=== PATIENT | female | born 1985 | race Caucasian/White ===

== ENCOUNTER 2021-04-01 18:33 | Emergency (ER) | payer SELFPAY ==
--- OUTSIDE RECORDS SUMMARY | 2021-04-01 18:36 | XMS REPORT | Continuity of Care Document ---
:1985 Author Organization [facility] t Address [address] [place] [address] Dr. Guadarrama [address] [place] [id number] Care Team Providers Name Role Phone Unavailable Unavailable Unavailable Problems This patient has no known problems. Allergies, Adverse Reactions, Alerts This patient has no known allergies or adverse reactions. Medications This patient has no known medications. Procedures This patient has no known procedures. Encounters Start End Encounter Admission Attending Care Care Encounter Source Date/Time Date/Time Type Type Clinicians Facility Department ID 2019-09-26 2019-09-26 Emergency E [facility] [id number] MH 00:29:00 00:29:00 Genesis kwok [facility] Results This patient has no known results.
[2021-04-01 20:04] LABS: Urine Blood Negative (Negative); Urine Glucose Negative (Negative); Urine Protein Negative (Negative); Urine Specific Gravity 1.025 (1.005-1.030)
--- NOTE | 2021-04-01 20:29 | ER ---
Nurse's Notes [facility] Name: Anne Posada Age: 36 yrs Sex: Female : 1985 Arrival Date: 04/01/2021 Time: 18:39 Bed Treatment Private MD: Diagnosis: Low back pain Presentation: 04/01 19:34 Chief complaint: Patient states: has been having knots on her back for over a year , iw was supposed ot get xrays on it but never did, now it's gotten worse , states she had a fever today, took some ibuprofen. Coronavirus screen: At this time, the client does not indicate any symptoms associated with coronavirus-19. Ebola Screen: Patient negative for fever greater than or equal to 101.5 degrees Fahrenheit, and additional compatible Ebola Virus Disease symptoms Patient denies exposure to infectious person. Patient denies travel to an Ebola-affected area in the 21 days before illness onset. No symptoms or risks identified at this time. Initial Sepsis Screen: Does the patient meet any 2 criteria? No. Patient's initial sepsis screen is negative. Does the patient have a suspected source of infection? No. Patient's initial sepsis screen is negative. Risk Assessment: Do you want to hurt yourself or someone else? Patient reports no desire to harm self or others. Onset of symptoms. 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 - Social history:: Smoking status: Patient reports the use of cigarette tobacco products, smokes one-half pack cigarettes per day. - Family history:: not pertinent. - Hospitalizations: : No recent hospitalization is reported. Screenin:15 Abuse screen: Denies threats or abuse. Nutritional screening: No deficits noted. vg1 Tuberculosis screening: No symptoms or risk factors identified. Fall Risk None identified. Assessment: 20:13 General: Appears in no apparent distress. comfortable, Behavior is calm, cooperative. vg1 Pain: Complains of pain in lower back Pain currently is 4 out of 10 on a pain scale. Pain began about six months ago. Neuro: Level of Consciousness is awake, alert, obeys commands, Oriented to person, place, time, situation, Reports headache. Cardiovascular: Patient's skin is warm and dry. Respiratory: Airway is patent Respiratory effort is even, unlabored. GI: No signs and/or symptoms were reported involving the gastrointestinal system. : No signs and/or symptoms were reported regarding the genitourinary system. EENT: No signs and/or symptoms were reported regarding the EENT system. Derm: Skin is intact, is healthy with good turgor. Musculoskeletal: Circulation, motion, and sensation intact. 20:48 Reassessment: Patient appears in no apparent distress at this time. No changes from vg1 previously documented assessment. Patient and/or family updated on plan of care and expected duration. Pain level reassessed. Patient is alert, oriented x 3, equal unlabored respirations, skin warm/dry/pink. Vital Signs: 19:34 BP 118 / 88; Pulse 102; Resp 16; Temp 98.9; Pulse Ox 100% on R/A; Weight 56.7 kg; iw Height 5 ft. 4 in. (162.56 cm); 20:14 BP 108 / 77; Pulse 100; Resp 16; Pulse Ox 100% ; vg1 19:34 Body Mass Index 21.46 (56.70 kg, 162.56 cm) iw ED Course: 18:39 Patient arrived in ED. mr 19:37 Triage completed. iw 19:37 Arm band placed on. iw 19:56 Te Alanis MD is Attending Physician. ma2 20:00 Erika Fuchs, TRINI is Primary Nurse. vg1 20:04 Urine collected: clean catch specimen, clear. em 20:15 Patient has correct armband on for positive identification. Call light in reach. vg1 20:15 No provider procedures requiring assistance completed. Patient did not have IV access vg1 during this emergency room visit. Administered Medications: 20:34 Drug: Ketorolac 60 mg Route: IM; Site: right gluteus; vg1 20:49 Follow up: Response: No adverse reaction vg1 Outcome: 20:29 Discharge ordered by . ma2 20:49 Discharged to home ambulatory. vg1 20:49 Condition: stable 20:49 Discharge instructions given to patient, Instructed on discharge instructions, follow up and referral plans. medication usage, Demonstrated understanding of instructions, follow-up care, medications, Prescriptions given X 1. 20:49 Patient left the ED. vg1 Signatures: Sonja Plummer Edgar, RN RN Adamaris Knapp RN RN iw Alzahri, Mohammad, MD MD ma2 Erika Fuchs RN RN vg1
--- NOTE | 2021-04-01 20:29 | EDPHYS ---
Physician Documentation [facility] Name: Anne Posada Age: 36 yrs Sex: Female : 1985 Arrival Date: 04/01/2021 Time: 18:39 Bed Treatment Private MD: ED Physician Te Alanis HPI: 04/01 20:25 This 36 yrs old Female presents to ER via Ambulatory with complaints of low ma2 back pain. 20:25 Onset: The symptoms/episode began/occurred gradually, 2 year(s) ago. Associated signs ma2 and symptoms: Pertinent negatives: dizziness, malaise, neck stiffness, Photophobia sinus congestion, vomiting, weakness. Headache History: The patient has had previous headaches and this one is similar to previous episodes. The patient has experienced similar episodes in the past. no weakness or midline back pain, no fever no trauma or fall . 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 - Social history:: Smoking status: Patient reports the use of cigarette tobacco products, smokes one-half pack cigarettes per day. - Family history:: not pertinent. - Hospitalizations: : No recent hospitalization is reported. ROS: 20:25 Constitutional: Negative for fever, chills, and weight loss. ma2 20:25 All other systems are negative. Exam: 20:25 Constitutional: This is a well developed, well nourished patient who is awake, alert, ma2 and in no acute distress. Neck: Trachea midline, no thyromegaly or masses palpated, and no cervical lymphadenopathy. Supple, full range of motion without nuchal rigidity, or vertebral point tenderness. No Meningismus. Chest/axilla: Normal chest wall appearance and motion. Nontender with no deformity. No lesions are appreciated. Cardiovascular: Regular rate and rhythm with a normal S1 and S2. No gallops, murmurs, or rubs. Normal PMI, no JVD. No pulse deficits. Respiratory: Lungs have equal breath sounds bilaterally, clear to auscultation and percussion. No rales, rhonchi or wheezes noted. No increased work of breathing, no retractions or nasal flaring. Abdomen/GI: Soft, non-tender, with normal bowel sounds. No distension or tympany. No guarding or rebound. No evidence of tenderness throughout. Back: has bilateral lower back deep cysts measures < 1 cm indiameter, soft, mildly tender, o sacroiliac joint, this could be a bilateral gangelion or lipona, abscess is unlikely as skin is wnl, no fluctuence or rendness no warmth, no fever. No spinal tenderness. No costovertebral tenderness. Full range of motion. Skin: Warm, dry with normal turgor. Normal color with no rashes, no lesions, and no evidence of cellulitis. MS/ Extremity: Pulses equal, no cyanosis. Neurovascular intact. Full, normal range of motion. Neuro: Awake and alert, GCS 15, oriented to person, place, time, and situation. Cranial nerves II-XII grossly intact. Motor strength 5/5 in all extremities. Sensory grossly intact. Cerebellar exam normal. Normal gait. Vital Signs: 19:34 BP 118 / 88; Pulse 102; Resp 16; Temp 98.9; Pulse Ox 100% on R/A; Weight 56.7 kg; iw Height 5 ft. 4 in. (162.56 cm); 20:14 BP 108 / 77; Pulse 100; Resp 16; Pulse Ox 100% ; vg1 19:34 Body Mass Index 21.46 (56.70 kg, 162.56 cm) iw MDM: 19:56 Patient medically screened. ma2 20:25 Differential diagnosis: migraine, sinusitis, tension headache, vasomotor headache. Data ma2 reviewed: vital signs, nurses notes. Counseling: I had a detailed discussion with the patient and/or guardian regarding: the historical points, exam findings, and any diagnostic results supporting the discharge/admit diagnosis, the presence of at least one elevated blood pressure reading (>120/80) during this emergency department visit, the need for outpatient follow up. Response to treatment: the patient's symptoms have resolved after treatment, as noted in exam patient could be having lipoma or cyst or ganglion, she has been having this for 2 yrs and need to have an mri or lower back, no emergency condition exist. . 04/01 20:04 Order name: Urine --Ancillary (enter results) mw2 04/01 19:38 Order name: Urine Dipstick-Ancillary (obtain specimen); Complete Time: 20:04 iw 04/01 20:05 Order name: Urine Dipstick-Ancillary; Complete Time: 20:25 EDMS Administered Medications: 20:34 Drug: Ketorolac 60 mg Route: IM; Site: right gluteus; vg1 20:49 Follow up: Response: No adverse reaction vg1 Disposition Summary: 04/01/21 20:29 Discharge Ordered Location: Home ma2 Condition: Stable ma2 Diagnosis - Low back pain ma2 Followup: ma2 - With: Private Physician - When: Tomorrow - Reason: Continuance of care Discharge Instructions: - Discharge Summary Sheet ma2 - Acute Back Pain, Adult ma2 Forms: - Medication Reconciliation Form ma2 - Thank You Letter ma2 - Antibiotic Education ma2 - Prescription Opioid Use ma2 Prescriptions: - Diclofenac Sodium 75 mg Oral Tablet Sustained Release - take 1 tablet by ORAL route 2 times per day; 30 tablet; Refills: 0, Product ma2 Selection Permitted Signatures: Dispatcher [employer] EDMS Raheem Joseph, RN RN Adamaris Knapp RN RN iw Te Alanis MD MD ma2 Erika Fuchs RN RN vg1 Corrections: (The following items were deleted from the chart) 20:43 19:39 CORONAVIRUS+ ordered. EDMS EDMS
[2021-04-01] MEDS ORDERED: KETOROLAC 30 MG/ML INJ ONE (20:41)
[2021-04-01 20:54] VITALS: TEMP 98.9; O2SAT 100
[2021-04-01 20:55] VITALS: BP 108/77
[2021-04-01 21:49] LABS: Urine Specific Gravity/Preg 1.025 (1.005-1.030)
== END 2021-04-01 20:49 | disposition home or self-care (01) ==
LOC: ER 18:33
DX: U07.1 COVID-19 (principal); M54.5 Low back pain; F17.210 Nicotine dependence, cigarettes, uncomplicated
CPT/HCPCS: 81003; 81025; 96372; 99283; U0003

== ENCOUNTER 2021-04-06 06:03 | Emergency (ER) | payer SELFPAY ==
--- OUTSIDE RECORDS SUMMARY | 2021-04-06 06:05 | XMS REPORT | Continuity of Care Document ---
:1985 Author Organization [facility] t Address [address] [place] [address] Care Team Providers Name Role Phone Unavailable [...] MHSE [id number] MH 00:29:00 00:29:00 Genesis kwok [facility] Results This patient has no known results.
[2021-04-06 08:51] LABS: SARS-COV-2 RT PCR POSITIVE (NEGATIVE)
--- NOTE | 2021-04-06 15:41 | ER ---
Nurse's Notes [facility] Name: Anne Posada Age: 36 yrs Sex: Female : 1985 Arrival Date: 04/06/2021 Time: 06:06 Bed 12 Private MD: Diagnosis: Coronavirus infection, unspecified Presentation: 04/06 06:57 Chief complaint: Patient states: she woke up with no sense of taste or smell and has a bb headache wants to be checked for Covid. Coronavirus screen: headache, loss of taste or smell, Client presents with at least one sign or symptom that may indicate coronavirus-19. Standard/surgical mask placed on the client. Ebola Screen: No symptoms or risks identified at this time. Initial Sepsis Screen: Does the patient meet any 2 criteria? No. Patient's initial sepsis screen is negative. Does the patient have a suspected source of infection? No. Patient's initial sepsis screen is negative. Risk Assessment: Do you want to hurt yourself or someone else? Patient reports no desire to harm self or others. Onset of symptoms was April 03, 2021. 06:57 Method Of Arrival: Ambulatory bb 06:57 Acuity: FER 4 bb Triage Assessment: 06:59 Headache History: Denies prior headaches. General: Appears in no apparent distress. bb uncomfortable, Behavior is calm, cooperative. Pain: Complains of pain in headache Pain currently is 6 out of 10 on a pain scale. Pain began 2-3 days ago. Also complains of inability to work. Neuro: Level of Consciousness is awake, alert, obeys commands, Oriented to person, place, time. Cardiovascular: Capillary refill < 3 seconds Patient's skin is warm and dry. Respiratory: Respiratory effort is even, unlabored, Respiratory pattern is regular. 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 - Social history:: Smoking status: Patient reports the use of cigarette tobacco products, smokes one-half pack cigarettes per day. Vital Signs: 06:57 BP 102 / 78; Pulse 83; Resp 16 S; Temp 98.2(O); Pulse Ox 100% on R/A; Weight 56.7 kg bb (R); Height 5 ft. 4 in. (162.56 cm) (R); Pain 6/10; 06:57 Body Mass Index 21.46 (56.70 kg, 162.56 cm) bb ED Course: 06:06 Patient arrived in ED. bp1 06:59 Triage completed. bb 06:59 Arm band placed on Patient placed in waiting room, Patient notified of wait time. Labs bb ordered per protocol. 07:47 Basilio You NP is PHCP. pm1 07:47 Bairon Torres MD is Attending Physician. pm1 12:57 Adamaris Parker RN is Primary Nurse. iw Administered Medications: No medications were administered Outcome: 12:57 Discharge ordered by . pm1 12:57 Patient left the ED. iw Signatures: Christine Caba RN RN bb Adamaris Parker RN RN Basilio You NP GEOGRAPHIC INFORMATION SCIENTIST pm1 Cindy Bryan bp1
--- NOTE | 2021-04-06 15:41 | EDPHYS ---
Physician Documentation [facility] Name: Anne Posada Age: 36 yrs Sex: Female : 1985 Arrival Date: 04/06/2021 Time: 06:06 Bed 12 Private MD: ED Physician Bairon Torres HPI: 04/06 09:36 This 36 yrs old Female presents to ER via Ambulatory with complaints of pm1 Headache, Loss of Taste/Smell. 09:36 The patient complains of pain to the forehead. The patient describes the headache as pm1 aching. Onset: The symptoms/episode began/occurred this morning. Associated signs and symptoms: Pertinent positives: Loss of sense of taste and smell, Pertinent negatives: fever. The symptoms are alleviated by nothing. the symptoms are aggravated by nothing. The patient has not experienced similar symptoms in the past. The patient has not recently seen a physician. Patient is concerned she may have Covid and would like testing. 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 - Social history:: Smoking status: Patient reports the use of cigarette tobacco products, smokes one-half pack cigarettes per day. ROS: 09:36 Constitutional: Negative for fever, chills, and weight loss, Cardiovascular: Negative pm1 for chest pain, palpitations, and edema, Respiratory: Negative for shortness of breath, cough, wheezing, and pleuritic chest pain, Abdomen/GI: Negative for abdominal pain, nausea, vomiting, diarrhea, and constipation, Back: Negative for injury and pain, MS/Extremity: Negative for injury and deformity, Skin: Negative for injury, rash, and discoloration. 09:36 Neuro: Positive for headache, Negative for dizziness, numbness, tingling. 09:36 All other systems are negative. Exam: 09:36 Constitutional: This is a well developed, well nourished patient who is awake, alert, pm1 and in no acute distress. Head/Face: Normocephalic, atraumatic. 09:36 Back: No spinal tenderness. No costovertebral tenderness. Full range of motion. Skin: Warm, dry with normal turgor. Normal color with no rashes, no lesions, and no evidence of cellulitis. MS/ Extremity: Pulses equal, no cyanosis. Neurovascular intact. Full, normal range of motion. 09:36 Eyes: Exam is negative for acute changes, Periorbital structures: appear normal, Pupils: no acute changes, Extraocular movements: intact throughout. 09:36 ENT: Exam is negative for acute changes, External ear(s): are unremarkable, Ear canal(s): are normal, TM's: are normal, Mouth: Lips: normal, moist, Oral mucosa: normal, pink and intact, moist. 09:36 Cardiovascular: Exam negative for acute changes, Rate: normal, Rhythm: regular, Pulses: no pulse deficits are appreciated, Heart sounds: normal. 09:36 Respiratory: Exam negative for acute changes, respiratory distress, shortness of breath, Breath sounds: are clear throughout. 09:36 Abdomen/GI: Exam negative for acute changes, Palpation: abdomen is soft and non-tender, in all quadrants. 09:36 Neuro: Exam negative for acute changes, Orientation: is normal, Mentation: is normal, Motor: is normal, moves all fours. Vital Signs: 06:57 BP 102 / 78; Pulse 83; Resp 16 S; Temp 98.2(O); Pulse Ox 100% on R/A; Weight 56.7 kg bb (R); Height 5 ft. 4 in. (162.56 cm) (R); Pain 6/10; 06:57 Body Mass Index 21.46 (56.70 kg, 162.56 cm) bb MDM: 08:01 Patient medically screened. pm1 09:36 Counseling: I had a detailed discussion with the patient and/or guardian regarding: the pm1 historical points, exam findings, and any diagnostic results supporting the discharge/admit diagnosis, lab results, the need for outpatient follow up, to return to the emergency department if symptoms worsen or persist or if there are any questions or concerns that arise at home, Need for quarantine. 09:36 Data reviewed: vital signs. Data interpreted: Pulse oximetry: on room air is 100 %. pm1 Interpretation: normal. Administered Medications: No medications were administered Disposition Summary: 04/06/21 12:57 Discharge Ordered Location: Home pm1 Problem: new pm1 Symptoms: have improved pm1 Condition: Stable pm1 Diagnosis - Coronavirus infection, unspecified pm1 Followup: pm1 - With: Emergency Department - When: As needed - Reason: Worsening of condition Followup: pm1 - With: Private Physician - When: - Reason: Recheck today's complaints, Continuance of care, Re-evaluation by your physician Discharge Instructions: - Discharge Summary Sheet pm1 - COVID-19 pm1 - COVID-19 Frequently Asked Questions pm1 - 10 Things You Can Do to Manage Your COVID-19 Symptoms at Home - [facility] pm1 - COVID-19: Quarantine vs. Isolation - [facility] pm1 Forms: - Medication Reconciliation Form pm1 - Thank You Letter pm1 - Antibiotic Education pm1 - Prescription Opioid Use pm1 Addendum: 04/08/2021 08:52 Co-signature as Attending Physician, Bairon Torres MD I agree with the assessment and s p3 plan of care. Signatures: Dispatcher [employer] EDMS Christine Caba, RN RN bb Basilio You, CABLE TESTERS HELPER CABLE TESTERS HELPER pm1 Bairon Torres MD MD sp3 Corrections: (The following items were deleted from the chart) 04/06 08:05 07:02 CORONAVIRUS+MR.LAB.BRZ ordered. EDMS EDMS 08:06 07:02 Influenza Screen (A \T\ B)+BA.LAB.BRZ ordered. EDMS EDMS
[2021-04-06 17:28] VITALS: BP 102/78; TEMP 98.2; O2SAT 100
== END 2021-04-06 12:57 | disposition home or self-care (01) ==
LOC: ER 06:03
DX: U07.1 COVID-19 (principal); F17.210 Nicotine dependence, cigarettes, uncomplicated
CPT/HCPCS: 0240U; 99282

== ENCOUNTER 2023-02-09 19:08 | Emergency (ER) | payer OTHER, SELFPAY ==
--- OUTSIDE RECORDS SUMMARY | 2023-02-09 19:12 | XMS REPORT | Continuity of Care Document ---
:1985 Author Organization [facility] t Address [address] [place] [address] [place] [id number] Care Team Providers Name Role Phone PCP, PATIENT DOES NOT HAVE A Primary Care Physician UnavailRicardo Abernathy DO Attending Clinician RICARDO FUENTES Attending Clinician Unavailable ENZO CARDENAS Attending Clinician Unavailable RICARDO FUENTES Admitting Clinician Unavailable Problems Condition Condition Condition Status Onset Resolution Last Treating Co mments Source Name Details Category Date Date Treatment Clinician Date Pyelonephr Pyelonephr Disease Active U nivers itis itis 04-30 ity of 00:00: [place] [address] [facility] Allergies, Adverse Reactions, Alerts Allergy Allergy Status Severity Reaction(s) Onset Inactive Treating Comm ents Source Name Type Date Date Clinician NO KNOWN Drug Active Univers ALLERGIE Class ity of [facility] Social History Social Habit Start Date Stop Date Quantity Comments Source Exposure to Not sure [facility] SARS-CoV-2 (event) Medica l Branch Sex Assigned At [birth year] [facility] 00:00:00 00:00:00 Medical Branch Smoking Status Start Date Stop Date Source Unknown if ever smoked [facility] Medications Ordered Filled Start Stop Current Ordering Indication Dosage Frequency Signature Comments Components Source Medication Medication Date Date Medication? Clinician (SIG) Name Name cefTRIAXone 2021- No 1000mg 1,000 mg, Univers (ROCEPHIN) 11-07 IV ity of 1,000 mg in 22:30: 22:07 [place], [place] NaCl 0.9% 00 :00 ONCE, 1 Medical (NS) 50 mL dose, On Branc h MINI-BAG 11/07/21 at 1730, Administer over 30 Minutes, 50 mL
R tete for Anti-Infec tive: Empiric Therapy for Suspected Infection< br>Empiric Therapy Site: Urine
D uration of therapy: 72 hours iopamidol No [id number] 100mL 100 mL, Univers (ISOVUE 11-07 Intravenou ity o f 370-500 mL) 22:00: 22:00 s, ONCE, 1 [place] injection 00 :00 dose, On Medica l 100 mL [facility] 11/07/21 Branch at 1700, Routine ondansetron No 4mg 4 mg, Slow Univers (ZOFRAN 11-07 IV Push, ity of (PF)) 20:30: 19:52 ONCE, 1 [place] injection 4 00 :00 dose, On Medi abraham mg Wed11/07/21 Branch at 1530, Routine dexamethaso 2021- No 10mg 10 mg, Uni vers ne 11-07 Oral, ity of (DECADRON 20:15: 19:21 ONCE, [place] PHOSPHATE[place] 00 :00 dose, On Medic al injection Wed11/07/21 Bran ch 10 mg at 1515, Routine methocarbam No 1000mg 1,000 mg, Univers oL 11-07 Oral, ity of (ROBAXIN) 20:15: 19:19 ONCE[place] tablet 00 :00 dose, On Medical 1,000 mg 11/07/21 Branc h at 1515, RUIZ ketorolac 2021- No 30mg 30 mg, Unive rs (TORADOL) 11-07 Intramuscu ity of injection 20:15: 19:17 lar, ONCE, [place] 30 mg 00 :00 1 dose, On Medical 11/07/21 Branch at 1515, RUIZ NaCl 0.9% 500mL at 999 Univ ers (NS) bolus 11-0708 mL/hr, 500 it y of infusion 19:30: 22:07 mL, IV [place] 500 mL 00 :00 Infusion, Medical ONCE, 1 Branch dose, On 11/07/21 at 1430, STAT cephALEXin No [id number] 500mg Take 1 Univers (KEFLEX) 11-07 capsule by ity of 500 mg 00:00: 04:59 mouth 3 [place] capsule 00 :00 (three) Medical times Branch daily for 7 days. ondansetron 4mg Take 1 Tab Univers (ZOFRAN, 04-30 by mouth ity of HYDROCHLORI 00:00: 00:00 every 8 [place] 4 mg 00 :00 (eight) Medical tablet hours. Branch acetaminoph 2{tbl} Take 2 U nivers en-codeine 04-30 Tabs by ity o f (TYLENOL 00:00: 00:00 mouth [place] #3) 300-30 00 :00 every 6 Medica l mg tablet (six) Branch hours as needed for Pain unrelieved by non-narcot ic analgesics . levofloxaci 500mg Take 1 Tab Univers n 04-30 by mouth ity of (LEVAQUIN) 00:00: 00:00 every 24 [place] 500 mg 00 :00 (twenty-fo Medical tablet ur) hours. Uriah Vital Signs Vital Name Observation Time Observation Value Comments Source Systolic blood 2021-11-07 23:00:00 106 mm[Hg] Univer sity of pressure [facility] Diastolic blood 2021-11-07 23:00:00 66 mm[facility]Hg[facility] Heart rate 2021-11-07 23:00:00 91 /min Universi ty [facility] Respiratory rate 2021-11-07 23:00:00 15 /min [facility] O[facility] saturation in 2021-11-07 23:00:00 97 /min University of Arterial blood by [facility] Pulse oximetry Branch Body temperature 2021-11-07 17:52:00 36.72 [place] [facility] Body weight 2021-11-07 17:52:00 61.236 kg [facility] Procedures Procedure Date / Time Performing Clinician Source Performed CBC WITHOUT DIFF 2021-11-07 22:54:00 Ricardo Fuentes [facility] US PELVIS COMPLETE WITH 2021-11-07 22:50:00 Ricardo Fuentes [facility] TRANSVAGINAL [facility] CT ABDOMEN PELVIS W 2021-11-07 20:57:28 Singer Ricardo [facility] CONTRAST [facility] AMMONIA, PLASMA 2021-11-07 20:38:00 Singer [facility] URINALYSIS 2021-11-07 20:38:00 Singer [facility] POCT TEST 2021-11-07 20:34:00 Ricardo Fuentes [facility] LIPASE 2021-11-07 19:47:00 Singer [facility] COMP. METABOLIC PANEL 2021-11-07 19:47:00 Ricardo Fuentes [facility] ([id number]) [facility] CBC WITH DIFF 2021-11-07 19:47:00 Singer [facility] PROTHROMBIN TIME / INR 2021-11-07 19:47:00 Ricardo Fuentes [facility] CONSENT/REFUSAL FOR 2021-11-07 17:48:44 [facility] Unassigned, [facility] Name [facility] NOTICE OF PRIVACY 2021-11-07 17:45:28 Doctor Unassigned, No Univ [facility] PRACTICES Name [facility] CONSENT/REFUSAL FOR 2021-11-07 17:41:07 Doctor Unassigned, [facility] Encounters Start End Encounter Admission Attending Care Care Encounter Source Date/Time Date/Time Type Type Clinicians Facility Department ID 2021-11-07 2021-11-07 Emergency Singer DCEL [id number] Univers 12:56:00 18:39:00 Ricardo MCDERMOTT [id number] i ty [facility] [id number] [facility] [id number] [place] [id number] Branch 2021-11-07 2021-11-07 Emergency X SINGER [facility] ERT [id number] Univers 12:56:00 18:39:00 RICARDO call of [facility] 2019-09-26 2019-09-26 [id number]00 02:46:00 [facility] Results Test Description Test Time Test Comments Results Result Comments Source CBC WITHOUT DIFF 2021-11-07 23:19:35 Test Item Value Reference Range Interpretation Comme nts WBC (test code = 6690-2) See_Comment H [A utomated message] The system which generated this result transmitted ref erence range: 4.30 - 11.10 10 *3/?L. The reference range was not used to interpret this result as normal/abnormal . RBC (test code = 789-8) See_Comment [Au tomated message] The system which generated this result transmitted ref erence range: 3.93 - 5.25 10* 6/?L. The reference range was not used to interpret this result as normal/abnormal . HGB (test code = 718-7) 12.0 g/dL 11.6-15.0 HCT (test code = 4544-3) 36.1 % 35.7-45.2 MCH (test code = 785-6) 29.1 pg 25.9-32.8 MCV (test code = 787-2) 87.4 fL 80.6-95.5 MCHC (test code = 786-4) 33.2 g/dL 31.6-35.1 PLT (test code = 777-3) See_Comment [Au tomated message] The system which generated this result transmitted ref erence range: 166 - 358 10*3/ ?L. The reference range was not used to interpret this result as normal/abnormal . MPV (test code = 97892-0) 11.8 fL 9.5-12.9 RDW-CV (test code = 788-0) 13.6 % 12.0-15.5 RDW-SD (test code = 49907-2) 43.4 fL 39.0-49.9 NRBC x10^3 (test code = <0.01 See_Comment [Au tomated message] The system 0603171240) which generated this result transmitted ref erence range: 10*3/?L. The re ference range was not used to interpret this result as bettina l/abnormal. NRBC/100 WBC (test code = See_Comment [ Automated message] The system 7793485625) which generated this result transmitted ref erence range: 0.0 - 10.0 /100 WBCs. The reference range was not used to interpret this result as normal/abnormal . IPF % (test code = 1196822536) Lab Interpretation (test code Abnormal = 90780-7) [facility] [id number] 21:03:51 Test Item Value Reference Range Interpretation Comments AMMONIA (test code = 4556776526) <9 9-33 L Lab Interpretation (test code = Abnormal 99391-1) [facility] [id number] 20:34:00 Test Item Value Reference Range Interpretation Comments POCT PREG (test code = 1605) Negative On board controls acceptable with Present C Line (test code = 3574) POCT PREG LOT # (test code = 3575) [id number] POCT PREG TEST DATE (test 2023-05-01 code = 3576) Lab Interpretation (test code = Normal 00747-2) [facility]. METABOLIC PANEL (91831)2021-11-07 20:19:39 Test Item Value Reference Range Interpretation Comments NA (test code = 134 mmol/L 135-145 L 7037517151) K (test code = 4.1 mmol/L 3.5-5.0 5340446765) CL (test code = 102 mmol/L 98-108 4760544575) CO2 TOTAL (test code = 23 mmol/L 23-31 8691574441) AGAP (test code = 2-16 7753205045) BUN (test code = 8 mg/dL 7-23 1865823238) GLUCOSE (test code = 105 mg/dL 70-110 0460025163) CREATININE (test code = 0.49 mg/dL 0.50-1.04 L 0515406999) TOTAL BILI (test code = 0.9 mg/dL 0.1-1.4 9787928390) CALCIUM (test code = 8.8 mg/dL 8.6-10.6 5916167603) T PROTEIN (test code = 7.2 g/dL 6.3-8.2 4640997529) ALBUMIN (test code = 4.0 g/dL 3.5-5.0 1343075792) ALK PHOS (test code = 57 U/L 34-122 1065455904) ALTv (test code = 12 U/L 5-35 1742-6) AST(SGOT) (test code = 23 U/L 13-40 9789383777) eGFR (test code = mL/min/1.73m2 8117438381) ASHLYN (test code = ASHLYN) Association of Glomerular Filtration Rate (GFR) and Staging of Kidney Disease* + --+ --+ ------+| GFR (mL/min/1.73 m2) ?| With Kidney Damage ?| ?Without Kidney Damage+ --------+ --------+ +| ?>90 ?| ?Stage one ?| ? Normal ?+ ---+ ---+ -------+| ?60-89 ?| ?Stage two ?| ? Decreased GFR ? + --+ --+ ------+| ?30-59 ?| ?Stage three ?| ? Stage three ? + --+ --+ ------+| ?15-29 ?| ?Stage four ? | ? Stage four ?+ ---+ ---+ -------+| ?<15 (or dialysis) ? ?| ?Stage five ? | ? Stage five ?+ ---+ ---+ -------+ *Each stage assumes the associated GFR level has been in effect for at least three months. ?Stages 1 to 5, with or without kidney disease, indicate chronic kidney disease. Notes: Determination of stages one and two (with eGFR >59mL/min/1.73 m2) requires estimation of kidney damage for at least three months as defined by structural or functional abnormalities of the kidney, manifested by either:Pathological abnormalities or Markers of kidney damage (including abnormalities in the composition of the blood or urine or abnormalities in imaging tests). Lab Interpretation Abnormal (test code = 66179-7) [facility] 20:19:19 Test Item Value Reference Range Interpretation Comments LIPASE (test code = 7262876134) 74 U/L 0-220 Lab Interpretation (test code = Normal 85593-4) [facility] / [id number] 20:04:47 Test Item Value Reference Range Interpretation Comments PROTIME PATIENT (test See_Comment [Auto mated message] code = 5964-2) The system wh ich generated this result transmitted ref erence range: 12.0 - 1 4.7 Seconds. The re ference range was not u sed to interpret this result as normal/abnor mal. INR (test code = 6301-6) Nor mal INR <1.1; Warfarin Therap eutic range 2.0 to 3. 0 or 2.5 to 3.5, dep ending upon the indica tions. Lab Interpretation (test Normal code = 28962-0) [facility] WITH [id number] 19:59:15 Test Item Value Reference Range Interpretation Comments WBC (test code = See_Comment H [Automated 4190-2) message] The sy stem which generated this result transmitted reference range : 4.30 - 11.10 10*3/?L. The reference range was not used to interpret this result as normal/abnormal . RBC (test code = See_Comment [Automated 209-8) message] The sy stem which generated this result transmitted reference range : 3.93 - 5.25 10*6/?L. The reference range was not used to interpret this result as normal/abnormal . HGB (test code = 12.2 g/dL 11.6-15.0 718-7) HCT (test code = 37.9 % 35.7-45.2 4544-3) MCV (test code = 90.0 fL 80.6-95.5 787-2) MCH (test code = 29.0 pg 25.9-32.8 785-6) MCHC (test code = 32.2 g/dL 31.6-35.1 786-4) RDW-SD (test code = 44.6 fL 39.0-49.9 70374-7) RDW-CV (test code = 13.5 % 12.0-15.5 788-0) PLT (test code = See_Comment [Automated 777-3) message] The sy stem which generated this result transmitted reference range : 166 - 358 10*3/ ?L. The reference r murali was not used to interpret this result as normal/abnormal . MPV (test code = 11.3 fL 9.5-12.9 79018-3) NRBC/100 WBC (test See_Comment [Automat ed code = 7256351822) message] The system which generated this result transmitted reference range : 0.0 - 10.0 /100 WBCs. The refer ence range was not u sed to interpret th is result as normal/abnormal . NRBC x10^3 (test code <0.01 See_Comment [Auto mated = 8485761045) message] The s ystem which generated this result transmitted reference range : 10*3/?L. The reference range was not used to interpret this result as normal/abnormal . GRAN MAT (NEUT) % 76.6 % (test code = 770-8) IMM GRAN % (test code 0.50 % = 0500613450) LYMPH % (test code = 11.5 % 736-9) MONO % (test code = 10.2 % 5905-5) EOS % (test code = 0.7 % 713-8) BASO % (test code = 0.5 % 706-2) GRAN MAT x10^3(ANC) 9.88 10*3/uL 1.88-7.09 H (test code = 9321560171) IMM GRAN x10^3 (test 0.06 10*3/uL 0.00-0.06 code = 2171179561) LYMPH x10^3 (test code 1.48 10*3/uL 1.32-3.29 = 731-0) MONO x10^3 (test code 1.31 10*3/uL 0.33-0.92 H = 742-7) EOS x10^3 (test code = 0.09 10*3/uL 0.03-0.39 711-2) BASO x10^3 (test code 0.07 10*3/uL 0.01-0.07 = 704-7) Lab Interpretation Abnormal (test code = 80644-2) [facility]"
--- NOTE | 2023-02-09 20:40 | RAD REPORT ---
EXAM DESCRIPTION: US - UPPER EXTREMITY VENOUS UNILATE - 02/09/2023 8:14 pm CLINICAL HISTORY: Swelling COMPARISON: None. TECHNIQUE: Real-time sonographic evaluation of the left upper extremity deep venous system was perfo rmed. FINDINGS: Normal compressibility, flow augmentation, phasic flow and spontaneous flow is identified in the left upper extremity deep venous system. No intraluminal filling defects seen. Focal medial elbow soft tissue swelling, with 2 prominent lymph nodes demonstrating cortical thickeni ng and hypervascularity at the partially effaced hilum, largest measuring up to 1.6 centimeter. Overl lily superficial veins demonstrating slow flow. IMPRESSION: No evidence of DVT in the left upper extremity. Findings suggesting focal cellulitis at the medial aspect of the elbow with reactive lymph nodes. Ove rlying superficial veins demonstrates slow flow.
--- NOTE | 2023-02-09 20:46 | ER ---
Nurse's Notes [facility] Name: Anne Posada Age: 37 yrs Sex: Female : 1985 Arrival Date: 02/09/2023 Time: 19:08 Bed 6 Private MD: Diagnosis: Cellulitis of the left upper extremity Presentation: 02/09 19:30 Chief complaint: Patient states: I noticed some redness and swelling to my left arm and vc1 now I feel weak and like I was running fever. I took some advil right before I came here. Coronavirus screen: Vaccine status: Patient reports receiving the 1st dose of the Covid vaccine. Client denies travel out of the [place] in the last 14 days. At this time, the client does not indicate any symptoms associated with coronavirus-19. Ebola Screen: Patient negative for fever greater than or equal to 101.5 degrees Fahrenheit, and additional compatible Ebola Virus Disease symptoms Patient denies exposure to infectious person. Patient denies travel to an Ebola-affected area in the 21 days before illness onset. No symptoms or risks identified at this time. Initial Sepsis Screen: Does the patient meet any 2 criteria? HR > 90 bpm. No. Patient's initial sepsis screen is negative. Does the patient have a suspected source of infection? Yes: Skin breakdown/wound. Risk Assessment: Do you want to hurt yourself or someone else? Patient reports no desire to harm self or others. Onset of symptoms was February 07, 2023. Care prior to arrival: Medication(s) given: Motrin, 400 mg. 19:30 Method Of Arrival: Ambulatory vc1 19:30 Acuity: FER 3 vc1 Triage Assessment: 19:36 General: Appears in no apparent distress. uncomfortable, Behavior is calm, cooperative, vc1 appropriate for age. Pain: Complains of pain in left arm Pain does not radiate. Pain currently is 8 out of 10 on a pain scale. Quality of pain is described as pressure. EENT: No deficits noted. No signs and/or symptoms were reported regarding the EENT system. Neuro: No deficits noted. Cardiovascular: No deficits noted. Respiratory: Airway is patent Respiratory effort is even, unlabored, Respiratory pattern is regular, symmetrical. GI: No deficits noted. No signs and/or symptoms were reported involving the gastrointestinal system. : No deficits noted. No signs and/or symptoms were reported regarding the genitourinary system. Derm: Skin is pink, red inflamed medial left arm. Musculoskeletal: No deficits noted. 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 - Social history:: Smoking status: Patient reports the use of cigarette tobacco products, smokes one-half pack cigarettes per day. Screenin:36 Abuse screen: Denies threats or abuse. Nutritional screening: No deficits noted. vc1 Tuberculosis screening: No symptoms or risk factors identified. 20:53 [facility] ED Fall Risk Assessment (Adult) Score/Fall Risk Level 0 - 2 = Low Risk. as6 Assessment: 20:00 General: Appears comfortable, Behavior is calm, cooperative. Pain: Complains of pain in ha1 left arm Pain does not radiate. Pain currently is 7 out of 10 on a pain scale. Neuro: Level of Consciousness is awake, alert, obeys commands, Oriented to person, place, time, situation. Cardiovascular: Patient's skin is warm and dry. Respiratory: Airway is patent Respiratory effort is even, unlabored, Respiratory pattern is regular, symmetrical. Musculoskeletal: Circulation, motion, and sensation intact. Reports pain in left arm. Vital Signs: 19:30 BP 133 / 74; Pulse 112; Resp 17; Temp 98.8(O); Pulse Ox 99% ; Weight 58.97 kg; Height 5 vc1 ft. 4 in. ; Pain 8/10; 20:00 BP 97 / 72; Pulse 102; Resp 15 S; Pulse Ox 100% on R/A; ha1 19:30 Body Mass Index 22.31 (58.97 kg, 162.56 cm) vc1 19:30 Pain Scale: Adult vc1 ED Course: 19:11 Patient arrived in ED. im 19:12 Chase Bashir PA is PHCP. [facility] 19:12 Jude George MD is Attending Physician. [facility] 19:33 Triage completed. vc1 19:36 Arm band placed on right wrist. vc1 19:38 Patient has correct armband on for positive identification. Placed in gown. Bed in low ha1 position. Call light in reach. Side rails up X 1. 20:16 UPPER EXTREMITY VENOUS UNILATE In Process Unspecified. EDMS 20:45 Fransico Regalado, RN is Primary Nurse. as6 20:53 Provided Education on: discharge teaching. as6 20:53 No provider procedures requiring assistance completed. Patient did not have IV access as6 during this emergency room visit. Administered Medications: 20:52 Drug: Doxycycline PO 100 mg Route: PO; as6 20:52 Follow up: Response: No adverse reaction as6 Medication: 19:36 VIS not applicable for this client. vc1 Outcome: 20:44 Discharge ordered by MD. [facility] 20:53 Discharged to home ambulatory. as6 20:53 Condition: stable 20:53 Discharge instructions given to patient, Instructed on discharge instructions, follow up and referral plans. medication usage, Demonstrated understanding of instructions, follow-up care, medications, Prescriptions given X 2. 20:53 Patient left the ED. as6 Signatures: Dispatcher [employer] EDMS Chase Bashir PA PA jmm Slawson, Ashby, RN RN as6 Luanne Manriquez RN RN vc1 Caitlin Mitchell RN RN ha1 Abbey Buck
--- NOTE | 2023-02-09 20:46 | EDPHYS ---
Physician Documentation [facility] Name: Anne Posada Age: 37 yrs Sex: Female : 1985 Arrival Date: 02/09/2023 Time: 19:08 Bed 6 Private MD: ED Physician Jude George HPI: 02/09 19:31 This 37 yrs old Female presents to ER via Ambulatory with complaints of Arm jmm Problem - Swelling on left arm. 19:31 The patient or guardian complains of pain. The complaints affect the palmar aspect of jmm left forearm. Onset: The symptoms/episode began/occurred gradually, 1 day(s) ago. Modifying factors: The symptoms are alleviated by nothing. the symptoms are aggravated by nothing. Associated signs and symptoms: Pertinent positives: swelling, Pertinent negatives: fever. This is a 37-year-old female with no known chronic medical conditions presents emerged part with complaints of swelling or redness to her left upper extremity. Denies any injury.. 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 - Social history:: Smoking status: Patient reports the use of cigarette tobacco products, smokes one-half pack cigarettes per day. ROS: 19:31 Constitutional: Negative for fever, chills, and weight loss, Cardiovascular: Negative jmm for chest pain, palpitations, and edema, Respiratory: Negative for shortness of breath, cough, wheezing, and pleuritic chest pain. 19:31 Skin: Positive for swelling. 19:31 All other systems are negative. Exam: 19:31 Constitutional: This is a well developed, well nourished patient who is awake, alert, jmm and in no acute distress. Head/Face: atraumatic. Eyes: EOMI, no conjunctival erythema appreciated ENT: Moist Mucus Membranes Neck: Trachea midline, Supple Chest/axilla: Normal chest wall appearance and motion. Cardiovascular: Regular rate and rhythm. No edema appreciated Respiratory: Normal respirations, no respiratory distress appreciated Abdomen/GI: Non distended Back: Normal ROM 19:31 Skin: Erythema and induration appreciated to the left upper extremity, nonfluctuant, mildly tender to palpation. 19:31 Neuro: Orientation: is normal, Mentation: is normal, Memory: is normal. 19:31 Psych: Behavior/mood is pleasant, cooperative. Vital Signs: 19:30 BP 133 / 74; Pulse 112; Resp 17; Temp 98.8(O); Pulse Ox 99% ; Weight 58.97 kg; Height 5 vc1 ft. 4 in. ; Pain 8/10; 20:00 BP 97 / 72; Pulse 102; Resp 15 S; Pulse Ox 100% on R/A; ha1 19:30 Body Mass Index 22.31 (58.97 kg, 162.56 cm) vc1 19:30 Pain Scale: Adult vc1 MDM: 19:31 Patient medically screened. [facility] 19:31 Differential diagnosis: Abscess, DVT. Data reviewed: vital signs, nurses notes. I pema considered the following discharge prescriptions or medication management in the emergency department Medications were administered in the Emergency Department. See MAR. Counseling: I had a detailed discussion with the patient and/or guardian regarding: the historical points, exam findings, and any diagnostic results supporting the discharge/admit diagnosis, radiology results, the need for outpatient follow up, to return to the emergency department if symptoms worsen or persist or if there are any questions or concerns that arise at home. 02/09 20:16 Order name: UPPER EXTREMITY VENOUS UNILATE; Complete Time: 20:42 EDMS Administered Medications: 20:52 Drug: Doxycycline PO 100 mg Route: PO; as6 20:52 Follow up: Response: No adverse reaction as6 Disposition Summary: 02/09/23 20:44 Discharge Ordered Location: Home pema Condition: Stable pema Diagnosis - Cellulitis of the left upper extremity juan Followup: juan - With: Private Physician - When: 2 - 3 days - Reason: Recheck today's complaints, Continuance of care, Re-evaluation by your physician Discharge Instructions: - Discharge Summary Sheet pema - Cellulitis, Adult juan Forms: - Medication Reconciliation Form juan - Thank You Letter pema - Antibiotic Education juan - Prescription Opioid Use [facility] - Patient Portal Instructions.htm juan Prescriptions: - Cephalexin 500 mg Oral Capsule - take 1 capsule by ORAL route every 6 hours for 10 days; 40 capsule; Refills: 0, [facility] Product Selection Permitted - Doxycycline Hyclate 100 mg Oral Tablet - take 1 tablet by ORAL route every 12 hours; 20 tablet; Refills: 0, Product [facility] Selection Permitted Signatures: Dispatcher [employer] EDMS Chase Bashir PA PA jmm Slawson, Ashby, RN RN as6 Luanne Manriquez RN RN vc1 Corrections: (The following items were deleted from the chart) 20:16 19:40 Extremity Venous Uni [email or web address] ordered. EDMS EDMS
[2023-02-09] MEDS ORDERED: DOXYCYCLINE 100 MG CAP PO ONE (20:56)
[2023-02-09 23:04] VITALS: TEMP 98.8
[2023-02-09 23:11] VITALS: BP 97/72; O2SAT 100
== END 2023-02-09 20:53 | disposition home or self-care (01) ==
LOC: ER 19:08
DX: L03.114 Cellulitis of left upper limb (principal); F17.210 Nicotine dependence, cigarettes, uncomplicated
CPT/HCPCS: 93971; 99283

== ENCOUNTER 2023-04-01 22:26 | Emergency (ER) | payer OTHER ==
--- OUTSIDE RECORDS SUMMARY | 2023-04-01 22:29 | XMS REPORT | Continuity of Care Document ---
:1985 Author Organization [facility] t Address [address] [place] [address] [address] [place] [address] Care Team Providers Name Role Phone PCP, PATIENT DOES NOT HAVE A Primary Care Physician UnavailJennie Abernathy DO Attending Clinician JENNIE FUENTES Attending Clinician Unavailable ENZO CARDENAS Attending Clinician Unavailable JENNIE FUENTES Admitting Clinician Unavailable Problems Condition Condition Condition Status Onset Resolution Last Treating Co mments Source Name Details Category Date Date Treatment Clinician Date Pyelonephr Pyelonephr Disease Active U nivers itis itis 04-30 ity of 00:00: [place] 00 [facility] Allergies, Adverse Reactions, Alerts Allergy Allergy Status Severity Reaction(s) Onset Inactive Treating Comm ents Source Name Type Date Date Clinician NO KNOWN Drug Active Univers ALLERGIE Class ity of [facility] Social History Social Habit Start Date Stop Date Quantity Comments Source Exposure to Not sure [facility] SARS-CoV-2 (event) Medica l Branch Sex Assigned At [birth year] [facility] 00:00:00 00:00:00 Medical Branch Smoking Status Start Date Stop Date Source Unknown if ever smoked [facility] [place] [facility] Medications Ordered Filled Start Stop Current Ordering Indication Dosage Frequency Signature Comments Components Source Medication Medication Date Date Medication? Clinician (SIG) Name Name cefTRIAXone 2021- No 1000mg 1,000 mg, Univers (ROCEPHIN) 11-07 IV ity of 1,000 mg in 22:30: 22:07 [place], [place] NaCl 0.9% 00 :00 ONCE, 1 Medical (NS) 50 mL dose, On Branc h MINI-BAG Wed11/07/21 at 1730, Administer over 30 Minutes, 50 mL
R tete for Anti-Infec tive: Empiric Therapy for Suspected Infection< br>Empiric Therapy Site: Urine
D uration of therapy: 72 hours iopamidol No [id number] 100mL 100 mL, Univers (ISOVUE 11-07 Intravenou ity o f 370-500 mL) 22:00: 22:00 s, ONCE, 1 [place] injection 00 :00 dose, On Medica l 100 mL Wed11/07/21 Branch at 1700, Routine ondansetron No 4mg 4 mg, Slow Univers (ZOFRAN 11-07 IV Push, ity of (PF)) 20:30: 19:52 ONCE, 1 [place] injection 4 00 :00 dose, On Medi abraham mg Wed11/07/21 Branch at 1530, Routine dexamethaso No 10mg 10 mg, Uni vers ne [...] On 11/07/21 at 1430, STAT cephALEXin No [id number] 500mg Take 1 Univers (KEFLEX) 11-07 capsule [...] ity o f (TYLENOL 00:00: 00:00 mouth [place] #3) 300-30 00 :00 every 6 Medica l mg tablet (six) Branch hours as needed for Pain unrelieved by non-narcot ic analgesics . levofloxaci 500mg Take 1 Tab Univers n 04-30 by mouth ity of (LEVAQUIN) 00:00: 00:00 every 24 [place] 500 mg 00 :00 (twenty-fo Medical tablet ur) hours. [place] Vital Signs Vital Name Observation Time Observation Value Comments Source Systolic blood 2021-11-07 23:00:00 106 mm[Hg] Univer [facility] Diastolic blood 2021-11-07 23:00:00 66 mm[Hg[facility] Heart rate 2021-11-07 23:00:00 91 /min Universi ty [facility] Respiratory rate 2021-11-07 23:00:00 15 /min [facility] saturation in 2021-11-07 23:00:00 97 /min University Arterial blood by [facility] Pulse oximetry Branch Body temperature 2021-11-07 17:52:00 36.72 [place] [facility] Body weight 2021-11-07 17:52:00 61.236 kg [facility] Procedures Procedure Date / Time Performing Clinician Source Performed CBC WITHOUT DIFF 2021-11-07 22:54:00 Singer Jennie [facility] US PELVIS COMPLETE WITH 2021-11-07 22:50:00 Jennie Fuentes [facility] TRANSVAGINAL [facility] CT ABDOMEN PELVIS W 2021-11-07 20:57:28 Singer Jennie [facility] CONTRAST [facility] AMMONIA, PLASMA 2021-11-07 20:38:00 Singer [facility] URINALYSIS 2021-11-07 20:38:00 Singer [facility] POCT TEST 2021-11-07 20:34:00 Jennie Fuentes [facility] LIPASE 2021-11-07 19:47:00 Singer [facility] COMP. METABOLIC PANEL 2021-11-07 19:47:[address] [facility] ([id number]) [facility] CBC WITH DIFF 2021-11-07 19:47:00 Singer [facility] PROTHROMBIN TIME / INR 2021-11-07 19:47:00 [facility] CONSENT/REFUSAL FOR 2021-11-07 17:48:44 Doctor Unassigned, No [facility] Name [facility] NOTICE OF PRIVACY 2021-11-07 17:45:28 Doctor Unassigned, No Univ [facility] PRACTICES Name [facility] CONSENT/REFUSAL FOR 2021-11-07 17:41:07 Doctor Unassigned, No [facility] Encounters Start End Encounter Admission Attending Care Care Encounter Source Date/Time Date/Time Type Type Clinicians Facility Department ID 2023-03-26 2023-03-26 Outpatient [facility] SNOW [id number] Behzad 09:02:44 09:02:44 0825 Maribel Clark 2021-11-07 2021-11-07 Emergency [facility] [id number] Univers 12:56:00 18:39:00 Jennie MCDERMOTT [id number] i ty [facility] [id number] [facility] [id number] [place] [id number] Branch 2021-11-07 2021-11-07 Emergency X SINGER [facility] ERT [id number] Univers 12:56:00 18:39:00 JENNIE call [facility] 2019-09-26 2019-09-26 Emergency E RONALD, MHSE MHSE [id number] MH 00:29:00 02:46:00 [facility] a [facility] Results Test Description Test Time Test [...] as normal/abnormal . MPV (test code = 97076-0) 11.8 fL 9.5-12.9 RDW-CV (test code = 788-0) 13.6 % 12.0-15.5 RDW-SD (test code = 36232-7) 43.4 fL 39.0-49.9 NRBC x10^3 (test code = <0.01 See_Comment [Au tomated message] The system [id number]) which generated this result transmitted ref erence range: 10*3/?L. The re ference range was not used to interpret this result as bettina l/abnormal. NRBC/100 WBC (test code = See_Comment [ Automated message] The system [id number]) which generated this result transmitted ref erence range: 0.0 - 10.0 /100 WBCs. The reference range was not used to interpret this result as normal/abnormal . IPF % (test code = 7350027783) Lab Interpretation (test code Abnormal = 28489-2) [facility], [id number] 21:03:51 Test Item Value Reference Range Interpretation Comments AMMONIA (test code = 6232112779) <9 9-33 L Lab Interpretation (test code = Abnormal 97916-7) [facility] [id number] 20:34:00 Test Item Value Reference Range Interpretation Comments POCT PREG (test code = 1605) Negative On board controls acceptable with Present C Line (test code = 3574) POCT PREG LOT # (test code = 3575) [id number] POCT PREG TEST DATE (test 2023-05-01 code = 3576) Lab Interpretation (test code = Normal 42786-5) [facility] MET[facility]OLIC PANEL (07717)2021-11-07 20:19:39 Test Item Value Reference Range Interpretation Comments NA (test code = 134 mmol/L 135-145 L 3810811793) K (test code = 4.1 mmol/L 3.5-5.0 3469033295) CL (test code = 102 mmol/L 98-108 6706103633) CO2 TOTAL (test code = 23 mmol/L 23-31 5252059298) AGAP (test code = 2-16 9494866811) BUN (test code = 8 mg/dL 7-23 4052067198) GLUCOSE (test code = 105 mg/dL 70-110 4770611408) CREATININE (test code = 0.49 mg/dL 0.50-1.04 L 5625473356) TOTAL BILI (test code = 0.9 mg/dL 0.1-1.6 6949475727) CALCIUM (test code = 8.8 mg/dL 8.6-10.6 8388867870) T PROTEIN (test code = 7.2 g/dL 6.3-8.2 0749705061) ALBUMIN (test code = 4.0 g/dL 3.5-5.0 8975213358) ALK PHOS (test code = 57 U/L 34-122 5515617646) ALTv (test code = 12 U/L 5-35 2-6) AST(SGOT) (test code = 23 U/L 13-40 3107618138) eGFR (test code = mL/min/1.73m2 3578361478) ASHLYN (test code = ASHLYN) Association of [...] tests). Lab Interpretation Abnormal (test code = 31176-8) [facility]2022-04-08 20:19:19 Test Item Value Reference Range Interpretation Comments LIPASE (test code = 3153841716) 74 U/L 0-220 Lab Interpretation (test code = Normal 17164-2) [facility]PROT[facility] TIME / [id number] 20:04:47 Test Item Value Reference Range Interpretation [...] tions. Lab Interpretation (test Normal code = 42389-3) [facility]CB WITH [id number] 19:59:15 Test Item Value Reference Range Interpretation Comments WBC (test code = See_Comment H [Automated 2190-2) message] The sy stem which generated this result transmitted reference range : 4.30 - 11.10 10*3/?L. The reference range was not used to interpret this result as normal/abnormal . RBC (test code = See_Comment [Automated 159-8) message] The sy stem which generated this [...] RDW-SD (test code = 44.6 fL 39.0-49.9 24684-0) RDW-CV (test code = 13.5 % 12.0-15.5 788-0) PLT (test code = See_Comment [Automated 777-3) message] The sy stem which generated this result transmitted reference range : 166 - 358 10*3/ ?L. The reference r murali was not used to interpret this result as normal/abnormal . MPV (test code = 11.3 fL 9.5-12.9 75916-2) NRBC/100 WBC (test See_Comment [Automat ed code = 1092015870) message] The system which generated this result transmitted reference range : 0.0 - 10.0 /100 WBCs. The refer ence range was not u sed to interpret th is result as normal/abnormal . NRBC x10^3 (test code <0.01 See_Comment [Auto mated = 7735283259) message] The s ystem which generated this result transmitted reference range : 10*3/?L. The reference range was not used to interpret this result as normal/abnormal . GRAN MAT (NEUT) % 76.6 % (test code = 770-8) IMM GRAN % (test code 0.50 % = 2446853936) LYMPH % (test code = 11.5 % 736-9) MONO % (test code = 10.2 % 5905-5) EOS % (test code = 0.7 % 713-8) BASO % (test code = 0.5 % 706-2) GRAN MAT x10^3(ANC) 9.88 10*3/uL 1.88-7.09 H (test code = 7462164882) IMM GRAN x10^3 (test 0.06 10*3/uL 0.00-0.06 code = 5174956747) LYMPH x10^3 (test code 1.48 10*3/uL 1.32-3.29 = 731-0) MONO x10^3 (test code 1.31 10*3/uL 0.33-0.92 H = 742-7) EOS x10^3 (test code = 0.09 10*3/uL 0.03-0.39 711-2) BASO x10^3 (test code 0.07 10*3/uL 0.01-0.07 = 704-7) Lab Interpretation Abnormal (test code = 08013-4) [facility]"
[2023-04-01] MEDS ORDERED: CYCLOBENZAPRINE 10 MG TAB ONE (22:58)
--- NOTE | 2023-04-01 23:23 | ER ---
Nurse's Notes [facility] Name: Anne Posada Age: 38 yrs Sex: Female : 1985 Arrival Date: 04/01/2023 Time: 22:26 Bed IW1 Private MD: Diagnosis: Muscle spasm of back Presentation: 04/01 22:32 Chief complaint: Patient states: she has knots on her lower back that are hurting. 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 Coronavirus screen: At this time, the client does not indicate any symptoms associated with coronavirus-19. Ebola Screen: No symptoms or risks identified at this time. Initial Sepsis Screen: Does the patient meet any 2 criteria? No. Patient's initial sepsis screen is negative. Does the patient have a suspected source of infection? No. Patient's initial sepsis screen is negative. Risk Assessment: Do you want to hurt yourself or someone else? Patient reports no desire to harm self or others. Onset of symptoms was April 01, 2023. 22:32 Method Of Arrival: Ambulatory ap3 22:34 Note patient is in recovery, requests no narcotics. ap3 22:34 Acuity: FER 4 ap3 Triage Assessment: 22:34 General: Appears in no apparent distress. Behavior is calm, cooperative, appropriate ap3 for age. Pain: Complains of pain in low back area Pain currently is 3 out of 10 on a pain scale. Neuro: Level of Consciousness is awake, alert, obeys commands, Oriented to person, place, time, situation. Cardiovascular: Patient's skin is warm and dry. Respiratory: Airway is patent Respiratory effort is even, unlabored, Respiratory pattern is regular, symmetrical. Musculoskeletal: Range of motion: intact in all extremities. 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 - Social history:: Smoking status: Reported history of juuling and/or vaping. Screenin:35 [facility] ED Fall Risk Assessment (Adult) History of falling in the last 3 months, ap3 including since admission No falls in past 3 months (0 pts). Abuse screen: Denies threats or abuse. Nutritional screening: No deficits noted. Tuberculosis screening: No symptoms or risk factors identified. Vital Signs: 22:32 Pulse 77; Resp 18; Temp 98.7(O); Pulse Ox 100% ; Weight 58.97 kg; Pain 3/10; ap3 22:34 BP 116 / 89; ap3 22:32 Pain Scale: Adult ap3 ED Course: 22:29 Patient arrived in ED. kj1 22:34 Triage completed. ap3 22:34 Tejal Hernandez PA-C is [facility]. sb4 22:34 Mario Alberto Cummins MD is Attending Physician. sb4 22:35 Arm band placed on left wrist. ap3 23:22 Nurse Practitioner and/or Physician Paper Bundler to see patient. ap3 23:32 Provided Education on: discharge instructions. ap3 23:32 Patient has correct armband on for positive identification. ap3 23:32 No provider procedures requiring assistance completed. Patient did not have IV access ap3 during this emergency room visit. Administered Medications: 22:47 Drug: Cyclobenzaprine PO 10 mg Route: PO; ap3 23:33 Follow up: Response: No adverse reaction ap3 Medication: 22:47 VIS not applicable for this client. ap3 Outcome: 23:23 Discharge ordered by . sb4 23:32 Discharged to home ambulatory. ap3 23:32 Condition: good 23:32 Discharge instructions given to patient, Instructed on discharge instructions, follow up and referral plans. medication usage, Demonstrated understanding of instructions, follow-up care, medications, Prescriptions given X 1. 23:32 Patient left the ED. ap3 Signatures: Aishwarya Mittal, RN RN ap3 Mona Rangel kj1 Tejal Hernandez PA-C PA-C sb4
--- NOTE | 2023-04-01 23:23 | EDPHYS ---
Physician Documentation [facility] Name: Anne Posada Age: 38 yrs Sex: Female : 1985 Arrival Date: 04/01/2023 Time: 22:26 Bed IW1 Private MD: ED Physician Mario Alberto Cummins HPI: 04/02 01:48 This 38 yrs old Female presents to ER via Ambulatory with complaints of Back sb4 Pain. 01:48 Onset: The symptoms/episode began/occurred today. The patient presents with pain that sb4 is acute, with no known mechanism of injury. The symptoms are located in the low back. Onset: The symptoms/episode began/occurred today. The pain does not radiate. Associated signs and symptoms: The patient has no apparent associated signs or symptoms. The problem was sustained from unknown cause. Modifying factors: The patient symptoms are alleviated by OTC meds, Acetaminophen and ibuprofen. Patient reports of bilateral lower back pain. She states she feels "knots "in her back. She states she has been dealing with this for a few months now. She believes it started with them being associated with her menstrual cycle but now they come more frequently. She states she took Tylenol and ibuprofen prior to arrival which did help her pain but she is afraid the pain will come back worse later. 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 - Social history:: Smoking status: Reported history of juuling and/or vaping. ROS: 04/02 01:48 Constitutional: Negative for fever, chills, and weight loss. sb4 Back: Positive for pain at rest, pain with movement, Negative for injury or acute deformity, decreased range of motion, radiated pain. All other systems are negative. Exam: 01:48 Constitutional: This is a well developed, well nourished patient who is awake, alert, sb4 and in no acute distress. 01:50 Back: No spinal tenderness. No costovertebral tenderness. Full range of motion. sb4 01:50 Neuro: Exam negative for acute changes, focal neuro deficits, motor deficits, sensory deficits, cerebellar deficits, altered mental status, confusion, cranial nerve deficits, disorientation, dizziness, dysarthria, gait abnormality, memory loss, paresthesias, Romberg test, weakness. Vital Signs: 04/01 22:32 Pulse 77; Resp 18; Temp 98.7(O); Pulse Ox 100% ; Weight 58.97 kg; Pain 3/10; ap3 22:34 BP 116 / 89; ap3 22:32 Pain Scale: Adult ap3 MDM: 22:34 Patient medically screened. sb4 04/02 01:50 Differential diagnosis: chronic back pain, Fracture Joint Injury Ligament Injury sb4 ruptured disc, spinal injury, sprain, vertebral fracture, muscle spasm. Data reviewed: vital signs, nurses notes, and as a result, I will discharge patient. Counseling: I had a detailed discussion with the patient and/or guardian regarding the historical points, exam findings, and any diagnostic results supporting the discharge/admit diagnosis, to return to the emergency department if symptoms worsen or persist or if there are any questions or concerns that arise at home. Administered Medications: 04/01 22:47 Drug: Cyclobenzaprine PO 10 mg Route: PO; ap3 23:33 Follow up: Response: No adverse reaction ap3 Disposition: 04/02 06:50 Co-signature as Attending Physician, Mario Alberto Cummins MD I agree with the assessment sp4 and plan of care. I reviewed the patient's care provided by the Advanced Practice Provider and agree with the diagnosis and treatment plan. Disposition Summary: 04/01/23 23:23 Discharge Ordered Location: Home sb4 Problem: new sb4 Symptoms: have improved sb4 Condition: Stable sb4 Diagnosis - Muscle spasm of back sb4 Followup: sb4 - With: Private Physician - When: As needed - Reason: Recheck today's complaints, Continuance of care, Re-evaluation by your physician Discharge Instructions: - Discharge Summary Sheet sb4 - Muscle Cramps and Spasms, [id number] sb4 - Back Exercises, [id number] sb4 Forms: - Medication Reconciliation Form sb4 - Thank You Letter sb4 - Antibiotic Education sb4 - Prescription Opioid Use sb4 - Patient Portal Instructions sb4 - Leadership Thank You Letter sb4 Prescriptions: - Cyclobenzaprine 10 mg Oral Tablet - take 1 tablet by ORAL route every 8 hours As needed; 30 tablet; Refills: 0, sb4 Product Selection Permitted Signatures: Aishwarya Mittal RN RN ap3 Tejal Hernandez PA-C PA-C sb4 Mario Alberto Cummins MD MD sp4 Corrections: (The following items were deleted from the chart) 01:50 01:48 Neuro: Orientation: is normal, appropriate for stated age, to person, place, time sb4 \\T\\ situation. Mentation: is normal, appropriate for stated age, able to follow commands, Memory: is normal, sb4
[2023-04-02 00:28] VITALS: TEMP 98.7; O2SAT 100
== END 2023-04-01 23:32 | disposition home or self-care (01) ==
LOC: ER 22:26
DX: M62.830 Muscle spasm of back (principal)
CPT/HCPCS: 99283

== ENCOUNTER → 2023-09-03 | Emergency (ER) | payer BC, OTHER ==
--- OUTSIDE RECORDS SUMMARY | 2023-09-03 12:16 | XMS REPORT | Continuity of Care Document ---
Author Name Unknown Address [address] [address] [place] [address] [facility] thconnect Address [address] [facility] 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 Role Phone PCP, PATIENT DOES NOT HAVE A Primary Care Physic lizbeth Unavailable Ricardo Fuentes DO Attending Clinician [phone] RICARDO FUENTES Attending Clinician Unavailable RICARDO FUENTES Admitting Clinician Unavailable Problems Condition Name Condition Details Condition Category Status Onset Date Resolution Date Last Treatment Date Treating Clinician Comments Source Pyelonephr itis Pyelonephr itis Disease Active 04-30 00:00: 00 [facility] Allergies, Adverse Reactions, Alerts Allergy Name Allergy Type Status Severity Reaction(s) Onset Date Inactive Date Treating Clinician Comments Source NO KNOWN ALLERGIE S Drug Class Active [facility] Social History Social Habit Start Date Stop Date Quantity Comments Source Exposure to SARS-CoV-2 (event) Not sure [facility] Sex Assigned At 1985 00:00:00 1985 00:00:00 [facility] Smoking Status Start Date Stop Date Source Unknown if ever smoked [facility] Medications Ordered Medication Name Filled Medication Name Start Date Stop Date Current Medication? Ordering Clinician Indication Dosage Frequency Signature (SIG) Comments Components Source cefTRIAXone (ROCEPHIN) 1,000 mg in NaCl 0.9% (NS) 50 mL MINI-BAG 11-07 22:30: 00 11-07 22:07 :00 No 1000mg 1,000 mg, IV Piggyback, ONCE, 1 dose, On Wed11/07/21 at 1730, Administer over 30 Minutes, 50 mL
Reas on for Anti-Infec tive: Empiric Therapy for Suspected Infection< br>Empiric Therapy Site: Urine
D uration of therapy: 72 hours [facility] iopamidol (ISOVUE 370-500 mL) injection 100 mL 11-07 22:00: 00 11-07 22:00 :00 No [id number] 100mL 100 mL, Intravenou s, ONCE, 1 dose, On Wed11/07/21 at 1700, Routine [facility] ondansetron (ZOFRAN (PF)) injection 4 mg 11-07 20:30: 00 11-07 19:52 :00 No 4mg 4 mg, Slow IV Push, ONCE, 1 dose, On Wed11/07/21 at 1530, Routine [facility] dexamethaso ne (DECADRON PHOSPHATE) injection 10 mg 11-07 20:15: 00 11-07 19:21 :00 No 10mg 10 mg, Oral, ONCE, 1 dose, On Wed11/07/21 at 1515, Routine [facility] methocarbam oL (ROBAXIN) tablet 1,000 mg 11-07 20:15: 00 11-07 19:19 :00 No 1000mg 1,000 mg, Oral, ONCE, 1 dose, On Wed11/07/21 at 1515, RUIZ [facility] ketorolac (TORADOL) injection 30 mg 11-07 20:15: 00 11-07 19:17 :00 No 30mg 30 mg, Intramuscu lar, ONCE, 1 dose, On Wed11/07/21 at 1515, RUIZ [facility] NaCl 0.9% (NS) bolus infusion 500 mL 11-07 19:30: 11-07 22:07 :00 No 500mL at 999 mL/hr, 500 mL, IV Infusion, ONCE, 1 dose, On Wed11/07/21 at 1430, STAT [facility] cephALEXin (KEFLEX) 500 mg capsule 11-07 00:00: 00 11-15 04:59 :00 No [id number] 500mg Take 1 capsule by mouth 3 (three) times daily for 7 days. [facility] ondansetron (ZOFRAN, HYDROCHLORI DE,) 4 mg tablet 04-30 00:00: 00 11-07 00:00 :00 No 4mg Take 1 Tab by mouth every 8 (eight) hours. [facility] acetaminoph en-codeine (TYLENOL #3) 300-30 mg tablet 04-30 00:00: 00 11-07 00:00 :00 No 2{tbl} Take 2 Tabs by mouth every 6 (six) hours as needed for Pain unrelieved by non-narcot ic analgesics . [facility] levofloxaci n (LEVAQUIN) 500 mg tablet 04-30 00:00: 00 11-07 00:00 :00 No 500mg Take 1 Tab by mouth every 24 (twenty-fo ur) hours. [facility] Vital Signs Vital Name Observation Time Observation Value Comments S ource Systolic blood pressure 2021-11-07 23:00:00 106 mm[Hg] [facility] Diastolic blood pressure 2021-11-07 23:00:00 66 mm[Hg] [facility] Heart rate 2021-11-07 23:00:00 91 /min [facility] Respiratory rate 2021-11-07 23:00:00 15 /min [facility] Oxygen saturation in Arterial blood by Pulse oximetry 2021-11-07 23:00:00 97 /min [facility] Body temperature 2021-11-07 17:52:00 36.72 [place] [facility] Body weight 2021-11-07 17:52:00 61.236 kg [facility] Procedures Procedure Date / Time Performed Performing Clinician Source CBC WITHOUT DIFF 2021-11-07 22:54:00 [facility] WITH TRANSVAGINAL 2021-11-07 22:50:00 Ricardo Fuentes [facility] CT ABDOMEN PELVIS W CONTRAST 2021-11-07 20:57:28 Ricardo Fuentes [facility] AMMONIA, PLASMA 2021-11-07 20:38:00 [facility]IS 2021-11-07 20:38:00 Ricardo Fuentes [facility] POCT TEST 2021-11-07 20:34:00 Aleah Fuentes [facility] LIPASE 2021-11-07 19:47:00 Ricardo Fuentes [facility] COMP. METABOLIC PANEL ([id number]) 2021-11-07 19:47:00 Ricadro Fuentes [facility] CBC WITH DIFF 2021-11-07 19:47:00 Ricardo Fuentes [facility] PROTHROMBIN TIME / INR 2021-11-07 19:47:00 Morris Fuentes [facility] CONSENT/REFUSAL FOR DIAGNOSIS AND TREATMENT 2021-11-07 17:48:44 Doctor Unassigned, [place] [facility] NOTICE OF PRIVACY PRACTICES 2021-11-07 17:45:28 Doctor Unassigned, [place] [facility] CONSENT/REFUSAL FOR DIAGNOSIS AND TREATMENT 2021-11-07 17:41:07 Doctor Unassigned, [place] [facility] Encounters Start Date/Time End Date/Time Encounter Type Admission Type Attending [facility] Care Facility Care Department Encounter ID Source 2023-03-26 09:02:44 2023-03-26 09:02:44 Outpatient [facility] [id number] Behzad Clark 2021-11-07 12:56:00 2021-11-07 18:39:00 Emergency Ricardo Fuentes [facility] [id number] [facility] 2021-11-07 12:56:00 2021-11-07 18:39:00 Emergency X RICARDO FUENTES [facility] ERT [id number] [facility] Results Test Description Test Time Test Comments Results Result Co mments Source [facility] [id number] 21:03:51* Test Item Value Reference Range Interpretation Comme nts AMMONIA (test code = 3680454459) <9 9-33 L Lab Interpretation (test cod e = 76350-4) [facility]normal [facility] [id number] 20:34:00* Test Item Value Reference Range Interpretation Comme nts POCT PREG (test code = 1605) Negative On board controls acceptable with C Line (test code = 3574) Present POCT PREG LOT # (test code = 3575) [id number] POCT PREG TEST DATE ( test code = 3576) 2023-05-01 Lab Interpretation (test cod e = 02797-6) Normal [facility] (50668)2021-11-07 20:19:39* Test Item Value Reference Range Interpretation Comme nts NA (test code = 3807083475) 134 mmol/L 135-145 L K (test code = 7963340606) 4.1 mmol/L 3.5-5.0 CL (test code = 6891564963) 102 mmol/L 98-108 CO2 TOTAL (test code = 0452859196) 23 mmol/L 23-31 AGAP (test code = 7367275027) 2-16 BUN (test code = 6923594321) 8 mg/dL 7-23 GLUCOSE (test code = 9307107718) 105 mg/dL 70-110 CREATININE (test code = 4982455043) 0.49 mg/dL 0.50-1.04 L TOTAL BILI (test code = 0287764923) 0.9 mg/dL 0.1-1.1 CALCIUM (test code = 1355619650) 8.8 mg/dL 8.6-10.6 T PROTEIN (test code = 9289165746) 7.2 g/dL 6.3-8.2 ALBUMIN (test code = 7259944808) 4.0 g/dL 3.5-5.0 ALK PHOS (test code = 8877316289) 57 U/L 34-122 ALTv (test code = 1742-6) 12 U/L 5-35 AST(SGOT) (test code = 3383285158) 23 U/L 13-40 eGFR (test code = 1284729054) mL/min/1.73m2 ASHLYN (test code = ASHLYN) Association of [...] or abnormalities in imaging tests). Lab Interpretation (test code = 03469-5) [facility] 20:19:19* Test Item Value Reference Range Interpretation Comme [facility] LIPASE (test code = 5127822381) 74 U/L 0-220 Lab Interpretation (test cod e = 52726-8) Normal [facility] / [id number] 20:04:47* Test Item Value Reference Range Interpretation Comme [facility] PROTIME PATIENT (test code = 5964-2) See_Comment [Automated messa ge] The system which generated this result transmitted reference range: 12.0 - 14.7 Seconds. The reference range was not used to interpret this result as normal/abnormal. INR (test code = 6301-6) Normal INR <1.1; Warfarin Therapeutic range 2.0 to 3.0 or 2.5 to 3.5, depending upon the indications. Lab Interpretation (test code = 99339-3) Normal [facility] WITH [id number] 19:59:15* Test Item Value Reference Range Interpretation Comme nts WBC (test code = 6690-2) See_Comment H [Automated messa ge] The system which generated this result transmitted reference range: 4.30 - 11.10 10*3/?L. The reference range was not used to interpret this result as normal/abnormal. RBC (test code = 789-8) See_Comment [Automated messa ge] The system which generated this result transmitted reference range: 3.93 - 5.25 10*6/?L. The reference range was not used to interpret this result as normal/abnormal. HGB (test code = 718-7) 12.2 g/dL 11.6-15.0 HCT (test code = 4544-3) 37.9 % 35.7-45.2 MCV (test code = 787-2) 90.0 fL 80.6-95.5 MCH (test code = 785-6) 29.0 pg 25.9-32.8 MCHC (test code = 786-4) 32.2 g/dL 31.6-35.1 RDW-SD (test code = 78319-8) 44.6 fL 39.0-49.9 RDW-CV (test code = 788-0) 13.5 % 12.0-15.5 PLT (test code = 777-3) See_Comment [Automated messa ge] The system which generated this result transmitted reference range: 166 - 358 10*3/?L. The reference range was not used to interpret this result as normal/abnormal. MPV (test code = 34856-5) 11.3 fL 9.5-12.9 NRBC/100 WBC (test code = 6169694485) See_Comment [Automated [employer] ssage] The system which generated this result transmitted reference range: 0.0 - 10.0 /100 WBCs. The reference range was not used to interpret this result as normal/abnormal. NRBC x10^3 (test code = 2474296103) <0.01 See_Comment [Automated messa ge] The system which generated this result transmitted reference range: 10*3/?L. The reference range was not used to interpret this result as normal/abnormal. GRAN MAT (NEUT) % (test code = 770-8) 76.6 % IMM GRAN % (test code = 6997477767) 0.50 % LYMPH % (test code = 736-9) 11.5 % MONO % (test code = 5905-5) 10.2 % EOS % (test code = 713-8) 0.7 % BASO % (test code = 706-2) 0.5 % GRAN MAT x10^3(ANC) (test code = 0558225311) 9.88 10*3/uL 1.88-7.09 H IMM GRAN x10^3 (test code = 3732737006) 0.06 10*3/uL 0.00-0.06 LYMPH x10^3 (test code = 731-0) 1.48 10*3/uL 1.32-3.29 MONO x10^3 (test code = 742-7) 1.31 10*3/uL 0.33-0.92 H EOS x10^3 (test code = 711-2) 0.09 10*3/uL 0.03-0.39 BASO x10^3 (test code = 704-7) 0.07 10*3/uL 0.01-0.07 Lab Interpretation (test code = 60575-1) Abnormal [facility]"
[2023-09-03 12:24] LABS: SARS-CoV-2 Antigen Rapid Res Negative (Negative)
--- NOTE | 2023-09-03 14:30 | ER ---
Nurse's Notes [facility] Name: Anne Posada Age: 38 yrs Sex: Female : 1985 Arrival Date: 09/03/2023 Time: 11:48 Bed 13 Private MD: Diagnosis: Acute upper respiratory infection, unspecified Presentation: 09/03 12:05 Chief complaint: Patient states: c/o fever, muscle aches, cough, runny nose, n/v, sore me1 throat that started 3 days ago. Patient is 10 weeks . Coronavirus screen: Vaccine status: Patient reports receiving the 2nd dose of the covid vaccine. Ebola Screen: No symptoms or risks identified at this time. Initial Sepsis Screen: Does the patient meet any 2 criteria? HR > 90 bpm. No. Patient's initial sepsis screen is negative. Does the patient have a suspected source of infection? Yes: Productive cough/pneumonia. Risk Assessment: Do you want to hurt yourself or someone else? Patient reports no desire to harm self or others. Onset of symptoms was September 01, 2023. 12:05 Method Of Arrival: Ambulatory [facility] 12:05 Acuity: FER 4 me1 Triage Assessment: 12:08 General: Appears uncomfortable, ill, well developed, well nourished, Behavior is calm, me1 cooperative, appropriate for age, Reports c/o fever, muscle aches, cough, runny nose, n/v, sore throat that started 3 days ago. Patient is 10 weeks . Pain: Complains of pain in throat. EENT: Reports pain in throat. Neuro: Level of Consciousness is awake, alert, obeys commands, Oriented to person, place, time, situation, Appropriate for age. Cardiovascular: Capillary refill < 3 seconds Patient's skin is warm and dry. Respiratory: Reports cough that is non-productive, pain with cough c/o fever, muscle aches, cough, runny nose, n/v, sore throat that started 3 days ago. Patient is 10 weeks . GI: Reports nausea, vomiting. 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 - Social history:: Smoking status: Reported history of juuling and/or vaping. - Family history:: not pertinent. - Hospitalizations: : No recent hospitalization is reported. Screenin:08 [facility] ED Fall Risk Assessment (Adult) History of falling in the last 3 months, me1 including since admission No falls in past 3 months (0 pts) Confusion or Disorientation No (0 pts) Intoxicated or Sedated No (0 pts) Impaired Gait No (0 pts) Mobility Assist Device Used No (0 pt) Altered Elimination No (0 pt) Score/Fall Risk Level 0 - 2 = Low Risk Maintained a safe environment, Provided non-skid footwear, Hourly rounding (assess needs \T\ fall precautionary measures) done. Abuse screen: Denies threats or abuse. Nutritional screening: No deficits noted. Tuberculosis screening: No symptoms or risk factors identified. Assessment: 12:11 General: See triage assessment. . me1 Vital Signs: 12:05 BP 107 / 85; Pulse 106; Resp 18; Temp 98.2(O); Pulse Ox 99% on R/A; Weight 63.5 kg; me1 Height 5 ft. 4 in. ; 12:13 BP 106 / 76; Pulse 97; Resp 16; Pulse Ox 100% on R/A; me1 13:00 BP 113 / 77; Pulse 88; Resp 18; Pulse Ox 100% on R/A; me1 13:00 BP 95 / 65; Pulse 88; Resp 18; Pulse Ox 99% on R/A; me1 14:37 BP 99 / 57; Pulse 97; Resp 18; Pulse Ox 100% on R/A; me1 12:05 Body Mass Index 24.03 (63.50 kg, 162.56 cm) ut1 ED Course: 11:56 Patient arrived in ED. im 11:58 Juan Carlos Don MD is Attending Physician. rn 12:02 Martha Nava, TRINI is Primary Nurse. ut1 12:08 Triage completed. me1 12:08 Arm band placed on Patient placed in waiting room. me1 12:08 Patient has correct armband on for positive identification. Bed in low position. Call [facility] light in reach. Side rails up X2. Provided Education on: POC. Verbalized understanding. . 12:08 No provider procedures requiring assistance completed. me1 12:11 Strep Sent. 6 12:11 Flu Sent. 6 12:11 SARS RAPID Sent. [facility] 14:37 Patient did not have IV access during this emergency room visit. me1 Administered Medications: No medications were administered Medication: 14:15 VIS not applicable for this client. me1 Outcome: 14:30 Discharge ordered by . rn 14:37 Discharged to home ambulatory, with significant other, ut1 14:37 Condition: stable 14:37 Discharge instructions given to patient, significant other, Instructed on discharge instructions, follow up and referral plans. medication usage, Demonstrated understanding of instructions, follow-up care, medications, Prescriptions given X 1, 14:41 Patient left the ED. me1 Signatures: Juan Carlos Don MD MD rn [place], [place] [facility] Abbey Buck Michelle RN RN me1
--- NOTE | 2023-09-03 14:31 | EDPHYS ---
Physician Documentation [facility] Name: Anne Posada Age: 38 yrs Sex: Female : 1985 Arrival Date: 09/03/2023 Time: 11:48 Bed 13 Private MD: ED Physician Juan Carlos Don HPI: 09/03 12:04 This 38 yrs old Female presents to ER via Unassigned with complaints of Flu rn Symptoms. 12:04 The patient or guardian reports cough, described as mild, with no sputum, flu symptoms, rn low-grade fever, myalgias. Onset: The symptoms/episode began/occurred 3 day(s) ago. Severity of symptoms: At their worst the symptoms were mild, in the emergency department the symptoms are unchanged. Modifying factors: The symptoms are alleviated by nothing, the symptoms are aggravated by nothing. Associated signs and symptoms: Pertinent positives: fever, rhinorrhea, sore throat, Pertinent negatives: chest pain, diarrhea. The patient has not experienced similar symptoms in the past. Patient reports 3 days of cough, congestion, headache, malaise, subjective fever and chills. Reports is 10 weeks , overall improved with Mucinex but not over it yet. No complaints regarding . In fact has OB appointment this afternoon for ultrasound, was scheduled, no problems acutely. No abdominal pain. No blood in stool. No shortness of breath. Reports sore throat is worst of the symptoms. 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 - Social history:: Smoking status: Reported history of juuling and/or vaping. - Family history:: not pertinent. - Hospitalizations: : No recent hospitalization is reported. ROS: 12:04 Constitutional: Positive for fever and chills Eyes: Negative for injury, pain, redness, rn and discharge, ENT: Positive for nasal congestion and sore throat Cardiovascular: Negative for chest pain, palpitations, and edema, Respiratory: Positive for cough, negative for shortness of breath Abdomen/GI: Negative for abdominal pain, diarrhea, and constipation, MS/Extremity: Negative for injury and deformity, Skin: Negative for injury, rash, and discoloration, Neuro: Positive for headache and generalized weakness Exam: 12:04 Constitutional: This is a well developed, well nourished patient who is awake, alert, rn and in no acute distress. Ambulatory to triage without difficulty or assistance Head/Face: Normocephalic, atraumatic. ENT: Mild pharyngeal erythema, no exudate, no stridor Neck: Bilateral nontender cervical lymphadenopathy. No meningismus Cardiovascular: Regular rate and rhythm. No pulse deficits. Respiratory: No increased work of breathing, no retractions or nasal flaring. MS/ Extremity: Pulses equal, no cyanosis. Neuro: Awake and alert, GCS 15 Vital Signs: 12:05 BP 107 / 85; Pulse 106; Resp 18; Temp 98.2(O); Pulse Ox 99% on R/A; Weight 63.5 kg; me1 Height 5 ft. 4 in. ; 12:13 BP 106 / 76; Pulse 97; Resp 16; Pulse Ox 100% on R/A; me1 13:00 BP 113 / 77; Pulse 88; Resp 18; Pulse Ox 100% on R/A; me1 13:00 BP 95 / 65; Pulse 88; Resp 18; Pulse Ox 99% on R/A; me1 14:37 BP 99 / 57; Pulse 97; Resp 18; Pulse Ox 100% on R/A; me1 12:05 Body Mass Index 24.03 (63.50 kg, 162.56 cm) nv1 MDM: 11:58 Patient medically screened. rn 14:29 Differential Diagnosis: Bronchitis Influenza Upper Respiratory Infection Sinusitis rn Pharyngitis Viral Syndrome. Data reviewed: vital signs, nurses notes, lab test result(s), and as a result, I will discharge patient. Counseling: I had a detailed discussion with the patient and/or guardian regarding the historical points, exam findings, and any diagnostic results supporting the discharge/admit diagnosis, lab results, the need for outpatient follow up, to return to the emergency department if symptoms worsen or persist or if there are any questions or concerns that arise at home. Special discussion: I discussed with the patient/guardian in detail that at this point there is no indication for admission to the hospital. It is understood, however, that if the symptoms persist or worsen the patient needs to return immediately for re-evaluation. 09/03 12:02 Order name: Strep aa5 09/03 12:02 Order name: SARS RAPID; Complete Time: 14:19 09/03 12:02 Order name: Flu; Complete Time: 14:19 09/03 12:34 Order name: Throat Culture EDMS Administered Medications: No medications were administered Disposition Summary: 09/03/23 14:30 Discharge Ordered Notes: Location: Home rn Problem: new rn Symptoms: have improved rn Condition: Stable rn Diagnosis - Acute upper respiratory infection, unspecified rn Followup: rn - With: Private Physician - When: As needed - Reason: Recheck today's complaints, Re-evaluation by your physician Discharge Instructions: - Discharge Summary Sheet rn - Upper Respiratory Infection, Adult rn Forms: - Medication Reconciliation Form rn - Thank You Letter rn - Antibiotic 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
[2023-09-03 14:55] VITALS: BP 99/57; TEMP 98.2; O2SAT 100
== END ==
LOC: ER 11:48
DX: J06.9 Acute upper respiratory infection, unspecified (principal); Z11.52 Encounter for screening for COVID-19
CPT/HCPCS: 36415; 87070; 87081; 87804; 87811

== ENCOUNTER 2023-12-05 17:49 | Emergency (ER) | payer BC, OTHER ==
--- OUTSIDE RECORDS SUMMARY | 2023-12-05 17:53 | XMS REPORT | Continuity of Care Document ---
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 JdksT4fwMKDRO7 BVbVmfnXIWiGv30q3FDoitVpcvov+b2T16:13:24 Pt report given to L&D RN. Patient taken to unit via wheelchair by ERT. 75397-3Lbdhjedbq department AlcxJG0535-95-47X29:13:42Emergency department NoteTXT1.2.840.382638.1.13.104.2.7 .2.852817|[id number] for patient lpkh98005-9LllwKELLVYNCNRVVfguzrsc d C-CDA narrative text[id number] 71HBCBLBLRLONVWEBKBKFAOU6727-09-79 T16:13:421.2.840.940073.1.72.3.15| 1.2.840.360449.1.13.104.2.7.2.7278 [id number] [facility] 2023-11-04 16:05:37 wOI34kxi9aZ7uGS7Vp7V cVO2JZzkqjzW+o Kzp+k2xSlUSATWmRT99sQ9puANMSZJ0807 -04-04T16:05:37 Pt reports being 20 weeks , c/o N/V "for the whole but has worsened over the last three days". Also reports intermittent abdominal cramping. Denies vaginal bleeding/discharge. Reports that she has been seen at clinic in [place], last visit 10/04. G3, P1, A1. 69392-2Ndmwzvgnr department Triage yjhwVQ7689-84-67I35:08:24Emergency department Triage noteTXT1.2.840.925963.1.13.104.2.7 .2.890811|[id number] for patient zgrg55034-1Nkproegnw department NoteLNNARRATIVEFormatted C-CDA narrative [id number] N Dewoody RN[address] Zm[id number] 64FIGPZIEBVLNKJAVYUSBKHX5010-99-30 T16:08:241.2.840.324074.1.72.3.15| 1.2.840.856145.1.13.104.2.7.2.7278 [id number] Ana Loyd RN [facility]
[2023-12-05] MEDS ORDERED: ACETAMINOPHEN 500 MG TAB ONE (18:41)
[2023-12-05 18:53] LABS: Absolute Basophils 0.1 K/uL (0-0.5); Absolute Eosinophils 0.1 K/uL (0-0.5); Absolute Lymphocytes (CBC) 2.1 K/uL (0.7-4.9); Absolute Neutrophil 10.7 K/uL (1.8-8.0); Basophils % 0.5 % (0-1.3); Eosinophils % 0.6 % (0-4.4); Hematocrit 29.1 % (36.0-45.0); Hemoglobin 9.5 g/dL (12.0-15.0); Lymphocytes % 14.9 % (15.3-44.8); MCH 28.5 pg (27.0-35.0); MCHC 32.8 g/dL (32.0-36.0); MCV 86.8 fL (80-100); MPV 9.9 fL (7.6-11.3); Monocytes % 7.4 % (3.3-12.3); Neutrophils % 76.6 % (41.7-73.7); Platelets 215 thou/uL (152-406); RBC Red Blood Cell Count 3.35 M/uL (3.86-4.86); Red Cell Distribution Width 15.6 % (12.1-15.2)
[2023-12-05 19:11] LABS: Anion Gap 8.6 mEq/L (5.0-15.0); Potassium 3.6 mEq/L (3.5-5.1)
[2023-12-05] MEDS ORDERED: NA CHLORIDE 0.9% 1,000 ML ONE (19:38)
[2023-12-05] MEDS ORDERED: NA CHLORIDE 0.9% 100 ML ONE (19:38)
[2023-12-05] MEDS ORDERED: PIPERACIL/TAZO 3.375 GM VIAL IV ONE (19:39)
--- NOTE | 2023-12-05 19:47 | RAD REPORT ---
EXAM DESCRIPTION: RAD -Hand Left 3 View - 12/05/2023 6:55 pm CLINICAL HISTORY: Left hand pain. Dog bite FINDINGS: No fracture or dislocation is seen. No radiopaque foreign body visualized.
--- NOTE | 2023-12-05 20:35 | ER ---
Nurse's Notes [facility] Name: Anne Posada Age: 38 yrs Sex: Female : 1985 Arrival Date: 12/05/2023 Time: 17:49 Bed 6 Private MD: Diagnosis: Cellulitis of left upper limb-left hand;Bitten by dog Presentation: 12/04 17:58 Chief complaint: Patient states: Left hand swelling, painful, unable to close hand. Was nj1 bitten by the neighbors dog on Wednesday. Rectification Printer notified on Wednesday. 27 wks . Coronavirus screen: Vaccine status: Patient reports receiving the 2nd dose of the covid vaccine. Ebola Screen: Patient denies travel to an Ebola-affected area in the 21 days before illness onset. Initial Sepsis Screen: Does the patient meet any 2 criteria? HR > 90 bpm. No. Patient's initial sepsis screen is negative. Does the patient have a suspected source of infection? No. Patient's initial sepsis screen is negative. Risk Assessment: Do you want to hurt yourself or someone else? Patient reports no desire to harm self or others. Onset of symptoms was December 03, 2023. 17:58 Method Of Arrival: Ambulatory [facility] 17:58 Acuity: FER 3 [facility] Triage Assessment: 18:02 Bite description: bite sustained to left hand is from animal, was sustained 2 days ago. nj1 by a dog, animal information: vaccination(s) is unknown. General: Appears in no apparent distress. uncomfortable, Behavior is calm, cooperative, appropriate for age. Pain: Complains of pain in left hand Pain currently is 6 out of 10 on a pain scale. Musculoskeletal: Swelling present in left hand. Historical: - Allergies: 18:01 No Known Allergies; nj1 - PMHx: 18:01 None; nj1 - Immunization history:: Last tetanus immunization: < 5 years ago. - Infectious Disease History:: Denies. - Social history:: Smoking status: Patient reports the use of cigarette tobacco products, smokes one-half pack cigarettes per day. Screenin:44 [facility] ED Fall Risk Assessment (Adult) History of falling in the last 3 months, ld1 including since admission No falls in past 3 months (0 pts). Abuse screen: Denies threats or abuse. Denies injuries from another. Nutritional screening: No deficits noted. Tuberculosis screening: No symptoms or risk factors identified. Assessment: 18:44 General: Appears in no apparent distress. comfortable, Behavior is calm, cooperative, ld1 appropriate for age. Pain: Complains of pain in left hand Pain does not radiate. Pain currently is 8 out of 10 on a pain scale. Quality of pain is described as pressure, throbbing, Pain began suddenly, Is continuous. Neuro: Level of Consciousness is awake, alert, obeys commands, Oriented to person, place, time, situation. Cardiovascular: Capillary refill < 3 seconds Patient's skin is warm and dry. Respiratory: Airway is patent Respiratory effort is even, unlabored. GI: Abdomen is round distended. : No signs and/or symptoms were reported regarding the genitourinary system. EENT: No signs and/or symptoms were reported regarding the EENT system. Derm: Skin is intact, has skin tears on left hand Skin is pink, warm \T\ dry. swelling to left hand. 18:48 Reassessment: Contacted [facility] office for dog bite to left hand. ld1 [facility] en route to [facility]. Dog bite to left hand on 12/04/2023. Neighbors dog attacked pt dog - pt got inbetween dogs and received dog bite to left hand. Unknown vaccine status. 18:51 Reassessment: [facility] office number [phone]. Address of incident ld1 [address] [place] [address], [facility]. 19:45 Reassessment: Patient appears in no apparent distress at this time. Patient and/or km8 family updated on plan of care and expected duration. Pain level reassessed. Patient is alert, oriented x 3, equal unlabored respirations, skin warm/dry/pink. General: Appears in no apparent distress. comfortable, Behavior is calm, cooperative, appropriate for age. Pain: Complains of pain in left hand. Neuro: Level of Consciousness is awake, alert, obeys commands, Oriented to person, place, time, situation. Cardiovascular: Denies chest pain, Patient's skin is warm and dry. Respiratory: Airway is patent Respiratory effort is even, unlabored, Respiratory pattern is regular, symmetrical. Derm: Skin is healthy with good turgor, Skin is dry, Skin is red, Skin temperature is warm redness, swelling, pain, and warm to touch to left hand s/p dog bite. Musculoskeletal: Circulation, motion, and sensation intact. 20:48 Reassessment: Patient appears in no apparent distress at this time. Patient is alert, km8 oriented x 3, equal unlabored respirations, skin warm/dry/pink. Vital Signs: 17:58 BP 106 / 77; Pulse 107; Resp 16; Temp 97.7(O); Pulse Ox 99% ; Weight 79.38 kg; Height 5 nj1 ft. 4 in. ; Pain 6/10; 18:44 BP 106 / 75; Pulse 111; Resp 18; Pulse Ox 99% on R/A; ld1 20:47 BP 109 / 76; Pulse 92; Resp 17; Pulse Ox 99% on R/A; km8 17:58 Body Mass Index 30.04 (79.38 kg, 162.56 cm) nj1 17:58 Pain Scale: Adult nj1 Vitals: 18:58 Heart Tones 134. ld1 ED Course: 17:53 Patient arrived in ED. ra3 17:55 Loyd Couch PA is PHCP. cp 17:55 Loyd Salinas MD is Attending Physician. cp 18:01 Triage completed. nj1 18:01 Arm band placed on right wrist. nj1 18:29 Mago Bryant, RN is Primary Nurse. ld1 18:38 BMP Sent. ld1 18:38 CBC with Diff Sent. ld1 18:38 Inserted saline lock: 20 gauge in right antecubital area, using aseptic technique. ld1 Blood collected. 18:44 Patient has correct armband on for positive identification. Placed in gown. Bed in low ld1 position. Call light in reach. Side rails up X2. collections specialist on. Pulse ox on. NIBP on. Door closed. Noise minimized. Warm blanket given. 18:44 No provider procedures requiring assistance completed. ld1 18:56 XRAY Hand LEFT 3 View In Process Unspecified. EDMS 20:02 Lactate w/ 2H reflex if indic. Sent. km8 20:02 Blood Culture Adult (2) Sent. km8 20:25 Primary Nurse role handed off by Mago Bryant, RN km8 20:25 Анна Nelson, RN is Primary Nurse. km8 20:49 Provided Education on: discharge instructions. km8 20:49 IV discontinued, intact, bleeding controlled, Pressure dressing applied. km8 Administered Medications: 18:47 Drug: Acetaminophen PO 1000 mg PO once Route: PO; ld1 20:02 Follow up: Response: No adverse reaction km8 19:48 Drug: NS 0.9% IV 1000 ml IV at 999 ml/hr Per protocol; 1000 mL bolus Route: IV; Rate: km8 999 ml/hr; Site: right antecubital; 20:48 Follow up: Response: No adverse reaction; IV Status: Order to discontinue infusion; IV km8 Intake: 800ml 20:00 Drug: Piperacillin-Tazobactam IVPB 3.375 grams IVPB once over 60 mins; (mix in NS 100 km8 mL) Route: IVPB; Infused Over: 60 mins; Site: right antecubital; 20:48 Follow up: Response: No adverse reaction; IV Status: Completed infusion; IV Intake: km8 100ml Medication: 20:49 VIS not applicable for this client. km8 Intake: 20:48 IV: 100ml; Total: 100ml. km8 20:48 IV: 800ml; Total: 900ml. km8 Outcome: 20:35 Discharge ordered by MD. cp 20:49 Discharged to home ambulatory, with friend, km8 20:49 Condition: stable 20:49 Discharge instructions given to patient, Instructed on discharge instructions, follow up and referral plans. medication usage, Demonstrated understanding of instructions, follow-up care, medications, Prescriptions given X 1, 20:50 Patient left the ED. km8 Signatures: Dispatcher [employer] EDMS Loyd Couch PA PA cp Sims, Lauren, RN RN ld1 Juliet Sow RN RN nj1 Анна Nelson RN RN km8 Nathalie Mackenzie ra3 Corrections: (The following items were deleted from the chart) 19:48 19:48 Piperacillin-Tazobactam IVPB 3.375 grams IVPB in right antecubital over 60 mins km8 km8
--- NOTE | 2023-12-05 20:35 | EDPHYS ---
Physician Documentation [facility] Name: Anne Posada Age: 38 yrs Sex: Female : 1985 Arrival Date: 12/05/2023 Time: 17:49 Bed 6 Private MD: ZOLIA Physician Loyd Salinas HPI: 12/04 18:05 This 38 yrs old Female presents to ER via Ambulatory with complaints of Dog cp Bite - on hand-27wks preg. 18:05 The patient was bitten on the left hand, by a dog, in an unprovoked manner, at a cp neighbor's home. Onset: The symptoms/episode began/occurred 2 day(s) ago. Animal information: Patient/Caregiver unable to provide information related to the animal. Animal control has been notified. Secondary to the bite the patient reports erythema, pain, swelling, warmth. Associated signs and symptoms: The patient has no apparent associated signs or symptoms. Historical: - Allergies: 18:01 No Known Allergies; nj1 - PMHx: 18:01 None; nj1 - Immunization history:: Last tetanus immunization: < 5 years ago. - Infectious Disease History:: Denies. - Social history:: Smoking status: Patient reports the use of cigarette tobacco products, smokes one-half pack cigarettes per day. ROS: 18:10 Skin: Positive for of the left hand, dog bite, cp 18:10 Constitutional: Negative for body aches, chills, fever, poor PO intake, cp 18:10 Respiratory: Negative for cough, shortness of breath, wheezing, 18:10 Abdomen/GI: Negative for abdominal pain, vomiting, diarrhea, constipation, 18:10 : Negative for urinary symptoms, 18:10 Neuro: Negative for altered mental status, headache, numbness, weakness, 18:10 All other systems are negative, Exam: 18:15 Constitutional: The patient appears in no acute distress, alert, non-diaphoretic, cp non-toxic, well developed, well nourished, uncomfortable, 18:15 Head/Face: Normocephalic, atraumatic. cp 18:15 Eyes: Periorbital structures: appear normal, Conjunctiva: normal, no exudate, no injection, Sclera: no appreciated abnormality, Lids and lashes: appear normal, bilaterally, 18:15 ENT: External ear(s): are unremarkable, Nose: is normal, Mouth: Lips: moist, Oral mucosa: pink and intact, moist, Posterior pharynx: is normal, airway is patent, no erythema, no exudate, 18:15 Chest/axilla: Inspection: normal, 18:15 Cardiovascular: Rate: tachycardic, Rhythm: regular, 18:15 Respiratory: the patient does not display signs of respiratory distress, Respirations: normal, no use of accessory muscles, no retractions, labored breathing, is not present, Breath sounds: are clear throughout, no decreased breath sounds, no stridor, no wheezing, 18:15 Abdomen/GI: Inspection: gravid appearance, Palpation: abdomen is soft and non-tender, 18:15 Musculoskeletal/extremity: Extremities: noted in the left hand: superficial bite wounds noted dorsal side proximal index and middle fingers, mild swelling and mild erythema noted middle and proximal phalanxes of left index and middle fingers, tenderness to palpation, no ROM restriction, no circumferential swelling noted of fingers, Vital Signs: 17:58 BP 106 / 77; Pulse 107; Resp 16; Temp 97.7(O); Pulse Ox 99% ; Weight 79.38 kg; Height 5 nj1 ft. 4 in. ; Pain 6/10; 18:44 BP 106 / 75; Pulse 111; Resp 18; Pulse Ox 99% on R/A; ld1 20:47 BP 109 / 76; Pulse 92; Resp 17; Pulse Ox 99% on R/A; km8 17:58 Body Mass Index 30.04 (79.38 kg, 162.56 cm) nj1 17:58 Pain Scale: Adult nj1 MDM: 18:13 Patient medically screened. danis 19:00 Differential diagnosis: superficial laceration, tendon injury, vascular injury, rabies, cp cellulitis, sepsis, tenosynovitis. 20:34 Data reviewed: vital signs, nurses notes, lab test result(s), radiologic studies, plain cp films, and as a result, I will discharge patient. 20:35 I considered the following discharge prescriptions or medication management in the emergency department Medications were administered in the Emergency Department. See MAR. 20:35 Counseling: I had a detailed discussion with the patient and/or guardian regarding the cp historical points, exam findings, and any diagnostic results supporting the discharge/admit diagnosis, lab results, radiology results, the need for outpatient follow up, a family practitioner, to return to the emergency department if symptoms worsen or persist or if there are any questions or concerns that arise at home. Response to treatment: the patient's symptoms have markedly improved after treatment, and as a result, I will discharge patient. 12/04 18:08 Order name: CBC with Diff; Complete Time: 19:17 cp 12/04 19:17 Interpretation: Normal except: WBC 13.90; RBC 3.35; HGB 9.5; HCT 29.1; RDW 15.6; IVETET% cp 76.6; LYM% 14.9; NEUT A 10.7. 12/04 18:08 Order name: BMP; Complete Time: 19:17 12/04 19:20 Order name: Lactate w/ 2H reflex if indic. cp 12/04 19:20 Order name: Blood Culture Adult (2) 12/04 18:08 Order name: XRAY Hand LEFT 3 View; Complete Time: 20:02 12/04 20:02 Interpretation: Report reviewed. 12/04 18:08 Order name: IV; Complete Time: 18:38 cp 12/04 18:08 Order name: Wound Care; Complete Time: 18:38 cp 12/04 18:08 Order name: FHT's; Complete Time: 18:58 cp Administered Medications: 18:47 Drug: Acetaminophen PO 1000 mg PO once Route: PO; ld1 20:02 Follow up: Response: No adverse reaction km8 19:48 Drug: NS 0.9% IV 1000 ml IV at 999 ml/hr Per protocol; 1000 mL bolus Route: IV; Rate: km8 999 ml/hr; Site: right antecubital; 20:48 Follow up: Response: No adverse reaction; IV Status: Order to discontinue infusion; IV km8 Intake: 800ml 20:00 Drug: Piperacillin-Tazobactam IVPB 3.375 grams IVPB once over 60 mins; (mix in NS 100 km8 mL) Route: IVPB; Infused Over: 60 mins; Site: right antecubital; 20:48 Follow up: Response: No adverse reaction; IV Status: Completed infusion; IV Intake: km8 100ml Disposition Summary: 12/05/23 20:35 Discharge Ordered Notes: Location: Home cp Problem: new cp Symptoms: have improved cp Condition: Stable cp Diagnosis - Cellulitis of left upper limb - left hand cp - Bitten by dog cp Followup: cp - With: Private Physician - When: 1 - 2 days - Reason: Wound Recheck Discharge Instructions: - Discharge Summary Sheet cp - Cellulitis, Adult cp - Animal Bite, Adult cp Forms: - Medication Reconciliation Form cp - Antibiotic Education cp - Prescription Opioid Use cp - Patient Portal Instructions cp - Leadership Thank You Letter cp Prescriptions: - Augmentin 875-125 mg Oral Tablet - take 1 tablet ORAL route every 12 hours for 10 days; 20 tablet; Refills: 0, cp Product Selection Permitted Signatures: Dispatcher [employer] EDMS Loyd Salinas MD MD cha Page, Corey, PA PA cp Mago Bryant, RN RN ld1 Juliet Sow RN RN nj1 Анна Nelson RN RN km8
[2023-12-05 20:57] VITALS: TEMP 97.7; O2SAT 99
[2023-12-05 21:27] VITALS: BP 109/76
== END 2023-12-05 20:50 | disposition home or self-care (01) ==
LOC: ER 17:49
DX: O9A.212 Injury, poisoning and certain other consequences of external causes complicating pregnancy, second trimester (principal); L03.114 Cellulitis of left upper limb; W54.0XXA Bitten by dog, initial encounter; O99.332 Smoking (tobacco) complicating pregnancy, second trimester; F17.210 Nicotine dependence, cigarettes, uncomplicated; Z3A.27 27 weeks gestation of pregnancy
CPT/HCPCS: 96365; 87040 ×2; 85025; 80048; 36415; 83605; 73130; 99285; J2543; J7030

== ENCOUNTER 2024-12-04 14:05 | Emergency (ER) | payer MEDICARE, OTHER ==
--- OUTSIDE RECORDS SUMMARY | 2024-12-04 14:12 | XMS REPORT | Continuity of Care Document ---
Author Name Unknown Address [address] [facility] [place] [address] [facility] [place] Address 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 Name Role Phone Pcp, Patient Does Not Have A Primary Care Physic lizbeth Doctor Unassigned, Lacey Attending Clinician U Cherelle Simmons MD Attending Clinician [phone] CHERELLE CARL Attending Clinician Unavailable Js Ortiz DO Attending Clinician [phone] Doctor Unassigned, Lacey Attending Clinician U BRITTANY Ríos Attending Clinician Unavailable BRITTANY NORWOOD Attending Clinician Unavailable HUY BAY Attending Clinician Unavailable BEAU DEGROOT Attending Clinician Unavailable BEAU DEGROOT Attending Clinician Unavailable Ultrasound, Ang[facility] Attending Clinician Unavaila ble 2, Ad[facility] Attending Clinician Unavailable VASYL KO Attending Clinician Unavailable VASYL KO Attending Clinician Unavailable 1, [facility] Us Room Attending Clinician Unavailab Vasyl Cheung MD Attending Clinician [phone] Ricardo Fuentes DO Attending Clinician [phone] RICARDO FUENTES Attending Clinician Unavailable ENZO CARDENAS Attending Clinician Unavailable BRITTANY NORWOOD Admitting Clinician Unavailable CHERELLE CARL Admitting Clinician Unavailable RICARDO FUENTES Admitting Clinician Unavailable Payers Payer Name Policy Type Policy Number Effective Date Expirati on Date Source [place] SOO ALVARADO [id number] 2023 00:00:00 [employer] [id number] 2023 00:00:00 2023 00:00:00 Problems Condition Name Condition Details Condition Category Status Onset Date Resolution Date Last Treatment Date Treating Clinician Comments Source Obesity (BMI 30-39.9) Obesity (BMI 30-39.9) Disease Active 02-23 00:00: 00 [facility] Liveborn , of eli , born in hospital by vaginal delivery Liveborn , of eli , born in hospital by vaginal delivery Disease Active 02-22 00:00: 00 [facility] 37 weeks gestation of 37 weeks gestation of Disease Active 02-21 00:00: 00 [facility] Variable heart rate decelerati ons, antepartum Variable heart rate decelerati ons, antepartum Disease Active 02-21 00:00: 00 [facility] 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 trimester 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 trimester Disease Active 12-28 00:00: 00 [facility] Hepatitis C virus infection without hepatic coma, unspecifie d chronicity Hepatitis C virus infection without hepatic coma, unspecifie d chronicity Disease Active 12-28 00:00: 00 [facility] 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 Disease Active 12-28 00:00: 00 [facility] High-risk in third trimester High-risk in third trimester Disease Active 11-22 00:00: 00 [facility] 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 Disease Active 11-22 00:00: 00 [facility] Excessive weight gain during , antepartum Excessive weight gain during , antepartum Disease Active 11-22 00:00: 00 [facility] Nausea and vomiting during Nausea and vomiting during Disease Active 4-04 00:00: 00 [facility] Nausea and vomiting during Nausea and vomiting during Disease Active 4-04 00:00: 00 [facility] Tobacco use in , antepartum , second trimester Tobacco use in , antepartum , second trimester Disease Active 4-04 00:00: 00 [facility] Marijuana use during Marijuana use during Disease Active 4-04 00:00: 00 [facility] Trichomona s vaginitis Trichomona s vaginitis Disease Resolve d 529 00:00: 00 2024-01-26 00:00:00 2024-01-26 14:50:24 [facility] No care in current in second trimester No care in current in second trimester Disease Resolve d 4-04 00:00: 00 2023-11-23 00:00:00 2023-11-23 10:16:20 [facility] Pyelonephr itis Pyelonephr itis Disease Resolve d 9-29 00:00: 00 2023-11-23 00:00:00 2023-11-23 10:16:09 [facility] Allergies, Adverse Reactions, Alerts Allergy Name Allergy Type Status Severity Reaction(s) Onset Date Inactive Date Treating Clinician Comments Source NO KNOWN ALLERGIE S Drug Class Active [facility] Social History Social Habit Start Date Stop Date Quantity Comments Source ASSERTION 2023-06-22 00:00:00 [facility] Exposure to SARS-CoV-2 (event) Not sure [facility] History of tobacco use Cigarette Smoker [facility] of Social function 2024-02-24 00:00:00 2024-02-24 00:00:00 [facility] Alcoholic beverage intake 2023-11-23 00:00:00 2023-11-23 00:00:00 Ex-drinker (finding) [facility] Alcohol intake 2023-11-23 00:00:00 2023-11-23 00:00:00 Ex-drinker (finding) [facility] Sex assigned at 1985 00:00:00 1985 00:00:00 [facility] Smoking Status Start Date Stop Date Source Unknown if ever smoked [facility] Smokes tobacco daily 2023-11-04 00:00:00 [facility] Medications Ordered Medication Name Filled Medication Name Start Date Stop Date Current Medication? Ordering Clinician Indication Dosage Frequency Signature (SIG) Comments Components Source ferrous sulfate tablet 325 mg 02-23 15:45: 00 Yes 325mg 325 mg, Oral, BID, First dose on Wed02/24/24 at 1045, Until Discontinu ed, Routine [facility] vitamin w/FA tablet 02-23 00:00: 00 Yes [id number] 102 1{tbl} Take 1 tablet by mouth in the morning. [facility] docusate 100 mg capsule 02-23 00:00: 00 Yes [id number] 102 200mg Take 2 capsules by mouth once daily as needed for Constipati on. [facility] ferrous sulfate 325 mg (65 mg iron) tablet 02-23 00:00: 00 Yes [id number] 102 325mg Take 1 tablet by mouth in the morning. [facility] ibuprofen 800 mg tablet 02-23 00:00: 00 Yes [id number] 102 800mg Take 1 tablet by mouth every 8 (eight) hours as needed (pain). Take with food or milk. [facility] witch Tori (TUCKS) 50 % topical pad 02-22 13:21: 04 Yes [facility] rho(D) immune globulin (RHOPHYLAC) injection 300 mcg 02-22 09:23: 52 Yes 300ug [facility] HYDROcodone -acetaminop hen (NORCO 5) 5-325 mg tablet 1 tablet 02-22 09:23: 49 Yes 1{tbl} [facility] ibuprofen (IBU) tablet 600 mg 02-22 09:23: 49 Yes 600mg 600 mg, Oral, Q6HPRN, Starting on Wed02/23/24 at 042, Until Discontinu ed, Routine, Pain (scale 4-6) [facility] acetaminoph en (TYLENOL) tablet 650 mg 02-22 09:23: 49 Yes 650mg [facility] diphenhydrA MINE (BENADRYL) tablet 25 mg 02-22 09:23: 49 Yes 25mg [facility] ondansetron (ZOFRAN (PF)) injection 4 mg 02-22 09:23: 49 Yes 4mg [facility] simethicone (GAS RELIEF (SIMETHICON E)) chewable tablet 160 mg 02-22 09:23: 49 Yes 160mg 160 mg, Oral, PC+HSPRN, Starting on Wed02/23/24 at 042, Until Discontinu ed, Routine, Gas [facility] docusate (COLACE) capsule 200 mg 02-22 09:23: 49 Yes 200mg 200 mg, Oral, QDAILYPRN, Starting on Wed02/23/24 at 042, Until Discontinu ed, Routine, Constipati on [facility] magnesium hydroxide (MILK OF MAGNESIA) 400 mg/5 mL suspension 30 mL 02-22 09:23: 49 Yes 30mL [facility] benzocaine- menthol (DERMOPLAST ) 20-0.5 % topical spray 02-22 09:23: 48 Yes Topical, PRN, Starting on Wed02/23/24 at 0423, Until Discontinu ed, Routine, Perineum discomfort [facility] oxytocin (PITOCIN) 30 units in NS 500 mL IV infusion 02-22 08:32: 20 02-22 13:21 :05 No 300mL/h 300 mL/hr, IV Infusion, SEE-INSTRU CTIONS, Starting on Wed02/23/24 at 0332, Start at 300 mL/hr for 1 hr then 150 mL/hr for 1 hr. For post delivery uterotonic . [facility] PIB fentaNYL-ro pivacaine 2 mcg/mL-0.1 % (PF) in NS 200 mL epidural infusion RTU 02-22 07:11: 00 02-23 22:06 :07 No Epidural, CONTINUOUS PRN, Starting on Wed02/23/24 at 0211, Until Marla 02/24/24 at 1706, Routine, Intra-op [facility] lidocaine-e pinephrine (XYLOCAINE W/EPINEPHRI NE) 1.5 %-1:200,000 injection 02-22 07:04: 00 02-23 22:06 :07 No Epidural, ONCE INTRA PROCEDURE, Starting on Wed02/23/24 at 0204, Until Marla 02/24/24 at 1706, Routine, Intra-op [facility] penicillin GK 3 million units in NS 50 mL IV infusion (CNR) 02-22 04:00: 00 02-22 13:21 :05 No 310 3,000,000 Units (3 Million Units), IV Piggyback, Q4H ABX, First dose on Wed02/22/24 at 2300, Until Discontinu ed, Administer over 60 Minutes, 50 mL, Reason for Anti-Infec tive: Empiric Non-Surgic al Prophylaxi s, Duration of therapy: 72 hours, Specific indication : GBS [facility] oxytocin (PITOCIN) 30 units in NS 500 mL IV infusion 02-21 22:47: 48 02-22 13:21 :05 No 2mU/min at 2-40 mL/hr, IV Infusion, TITRATE, Starting on Wed02/22/24 at 1747, Until Wed02/23/24 at 0821, RUIZ [facility] penicillin g potassium 5 Million Units in NaCl 0.9% (NS) 100 mL MINI-BAG 02-21 22:45: 00 02-21 23:12 :00 No 510 5 Million Units, IV Piggyback, ONCE, 1 dose, On Wed02/22/24 at 1745, Administer over 60 Minutes, 100 mL, Reason for Anti-Infec tive: Empiric Non-Surgic al Prophylaxi s, Duration of therapy: Once (ED) [facility] FENTanyl PF (SUBLIMAZE (PF)) injection 100 mcg 02-21 21:46: 37 02-22 13:21 :05 No 100ug 100 mcg, Slow IV Push, Q1HPRN, Starting on Wed02/22/24 at 1646, Until Wed02/23/24 at 0821, Routine, contractio n pain without an epidural and SVE < 8 cm and Cat I strip [facility] D5W-LR IV infusion 1,000 mL 02-21 21:40: 22 02-22 13:21 :05 No 1000mL at 1-125 mL/hr, IV Infusion, TITRATE, Starting on Wed02/22/24 at 1640, Until Wed02/23/24 at 0821, Routine [facility] diphenhydrA MINE:lidoca ine 2% viscous:maa lox 1:1:1 ([facility]) oral suspension 15 mL 02-21 20:01: 29 02-22 13:21 :04 No 15mL 15 mL, Oral, PRN, Starting on Wed02/22/24 at 1501, Until Wed02/23/24 at 0821, Routine, Oral mucositis [facility] valACYclovi r (VALTREX) tablet 500 mg 02-21 14:00: 00 02-21 13:34 :00 No 500mg 500 mg, Oral, DAILY, 1 dose, First dose on Wed02/22/24 at 0900, RUIZ [facility] iron sucrose (VENOFER) 300 mg in NaCl 0.9% (NS) 250 mL infusion 02-21 13:00: 00 02-21 15:50 :00 No 300mg 300 mg, IV Infusion, ONCE, Administer over 2.5 Hours, On Wed02/22/24 at 0800, For 1 dose, Monitor for signs and symptoms for at least 30 minutes following completion of infusion. [facility] D5W 0.9% NaCl (NS) IV infusion 1,000 mL 02-21 07:00: 00 02-22 13:21 :04 No 1000mL at 125 mL/hr, 1,000 mL, IV Infusion, CONTINUOUS , Starting on Wed02/22/24 at 0200, Until Wed02/23/24 at 0821, Routine [facility] NaCl 0.9% (NS) bolus infusion 1,000 mL 02-21 06:45: 00 02-21 06:06 :00 No 1000mL at 999 mL/hr, 1,000 mL, IV Infusion, ONCE, 1 dose, On Wed02/22/24 at 0145, STAT [facility] famotidine (PEPCID (PF)) injection 20 mg 02-21 06:30: 00 02-22 13:21 :04 No 20mg 20 mg, Slow IV Push, Q12H, First dose (after last modificati on) on Wed02/22/24 at 0130, Until Discontinu ed, Routine [facility] ondansetron (ZOFRAN (PF)) injection 4 mg 02-21 05:50: 00 02-22 09:28 :54 No 4mg 4 mg, Slow IV Push, Q6HPRN, Pain (scale 4-6), Starting on Wed02/22/24 at 0050, Doses of ondansetro n 16 mg and above need to be administer ed via IV piggyback. For Dose >=24mg ECG monitoring is advisable. [facility] SERTraline (ZOLOFT) 100 mg tablet 01-11 00:00: 00 02-23 00:00 :00 No [id number] 100mg Take 1 tablet by mouth in the morning. [facility] SERTraline (ZOLOFT) 100 mg tablet 12-28 00:00: 00 01-11 00:00 :00 No [id number] 100mg Take 1 tablet by mouth in the morning. [facility] busPIRone 10 mg tablet 12-28 00:00: 00 01-11 00:00 :00 No [id number] 10mg Take 1 tablet by mouth in the morning and 1 tablet in the evening. [facility] SERTraline (ZOLOFT) 50 mg tablet 11-29 00:00: 00 12-28 00:00 :00 No [id number] 50mg Take 1 tablet by mouth in the morning. [facility] metroNIDAZO LE (FLAGYL) 500 mg tablet 11-23 00:00: 00 12-01 04:59 :00 No [id number] 500mg Take 1 tablet by mouth in the morning and 1 tablet in the evening. Do all this for 7 days. [facility] vit,calc76/ iron/folic (PNV 29-1 ORAL) 11-22 09:28: 38 02-23 00:00 :00 No [id number] Take by mouth. [facility] famotidine 20 mg tablet 11-22 00:00: 00 Yes [id number] 20mg Take 1 tablet by mouth in the morning and 1 tablet in the evening. [facility] ondansetron (ZOFRAN) 4 mg tablet 11-22 00:00: 00 Yes [id number] 4mg Take 1 tablet by mouth every 8 (eight) hours as needed for Nausea and Vomiting (N/V). [facility] ferrous sulfate (IRON, FERROUS SULFATE,) 325 mg (65 mg iron) tablet 11-22 00:00: 00 02-23 00:00 :00 No [id number] 325mg Take 1 tablet by mouth in the morning and 1 tablet in the evening. [facility] bisacodyL (DULCOLAX, BISACODYL,) 5 mg EC tablet 11-22 00:00: 00 02-23 00:00 :00 No [id number] 10mg Take 2 tablets by mouth once daily as needed for Constipati on. [facility] SERTraline (ZOLOFT) 25 mg tablet 11-22 00:00: 00 11-30 04:59 :00 No [id number] 25mg Take 1 tablet by mouth in the morning for 7 days. [facility] NaCl 0.9% (NS) IV infusion 1,000 mL 11-03 22:17: 00 Yes 1000mL at 999 mL/hr, IV Infusion, CONTINUOUS , Starting on Marla 11/04/23 at 1730, Until Discontinu ed, Routine [facility] cefTRIAXone (ROCEPHIN) 1,000 mg in NaCl 0.9% [...] 11-07 22:00: 00 11-07 22:00 :00 No [id number] 100mL 100 mL, Intravenou s, ONCE, 1 [...] 11-07 00:00: 00 11-15 04:59 :00 No [id number] 500mg Take 1 capsule by mouth 3 [...] 24 (twenty-fo ur) hours. [facility] Immunizations Ordered Immunization Name Filled Immunization Name Date Status Comments Source TDAP Unknown Completed [facility] TDAP Unknown Completed [facility] TDAP Unknown Completed [facility] TDAP Unknown Completed [facility] TDAP Unknown Completed [facility] TDAP Unknown Completed [facility] TDAP Unknown Completed [facility] TDAP Unknown Completed [facility] TDAP Unknown Completed [facility] TDAP Unknown Completed [facility] TDAP Unknown Completed [facility] Vital Signs Vital Name Observation Time Observation Value Comments S he[facility] Systolic blood pressure 2024-02-24 12:13:00 115 mm[Hg] [facility] Diastolic blood pressure 2024-02-24 12:13:00 81 mm[Hg] [facility] Heart rate 2024-02-24 12:13:00 88 /min [facility] Body temperature 2024-02-24 12:13:00 36.56 [place] [facility] Respiratory rate 2024-02-24 12:13:00 15 /min [facility] Oxygen saturation in Arterial blood by Pulse oximetry 2024-02-24 12:13:00 100 /min [facility] Body weight 2024-02-22 04:57:00 79.379 kg [facility] BMI 2024-02-22 04:57:00 30.04 kg/m2 [facility] Heart rate 2024-02-17 00:15:00 95 /min [facility] Oxygen saturation in Arterial blood by Pulse oximetry 2024-02-17 00:15:00 100 /min [facility] Systolic blood pressure 2024-02-16 23:33:00 124 mm[Hg] [facility] Diastolic blood pressure 2024-02-16 23:33:00 83 mm[Hg] [facility] Body temperature 2024-02-16 23:33:00 37 [place] [facility] Respiratory rate 2024-02-16 23:33:00 18 /min [facility] Body height 2024-02-16 23:33:00 162.6 cm [facility] Body weight 2024-02-16 23:33:00 77.111 kg 170.0lb [facility] BMI 2024-02-16 23:33:00 29.18 kg/m2 [facility] Systolic blood pressure 2024-01-26 19:54:00 115 mm[Hg] [facility] Diastolic blood pressure 2024-01-26 19:54:00 79 mm[Hg] [facility] Heart rate 2024-01-26 19:54:00 106 /min [facility] Body height 2024-01-26 19:54:00 162.6 cm [facility] Body weight 2024-01-26 19:54:00 80.559 kg [facility] BMI 2024-01-26 19:54:00 30.48 kg/m2 [facility] Systolic blood pressure 2024-01-12 20:58:00 123 mm[Hg] [facility] Diastolic blood pressure 2024-01-12 20:58:00 78 mm[Hg] [facility] Heart rate 2024-01-12 20:58:00 92 /min [facility] 2024-01-12 20:58:00 36.61 [place] [facility] Body height 2024-01-12 20:58:00 162.6 cm [facility] Body weight 2024-01-12 20:58:00 79.742 kg [facility] BMI 2024-01-12 20:58:00 30.18 kg/m2 [facility] Systolic blood pressure 2023-12-29 14:08:00 113 mm[Hg] [facility] Diastolic blood pressure 2023-12-29 14:08:00 76 mm[Hg] [facility] Heart rate 2023-12-29 14:08:00 111 /min [facility] Body height 2023-12-29 14:08:00 162.6 cm [facility] Body weight 2023-12-29 14:08:00 78.291 kg [facility] BMI 2023-12-29 14:08:00 29.63 kg/m2 [facility] Systolic blood pressure 2023-11-23 14:45:00 104 mm[Hg] [facility] Diastolic blood pressure 2023-11-23 14:45:00 73 mm[Hg] [facility] Heart rate 2023-11-23 14:45:00 107 /min [facility] Body temperature 2023-11-23 14:45:00 36.72 [place] [facility] Body height 2023-11-23 14:45:00 162.6 cm [facility] Body weight 2023-11-23 14:45:00 77.837 kg [facility] BMI 2023-11-23 14:45:00 29.46 kg/m2 [facility] Heart rate 2023-11-05 00:15:00 93 /min [facility] Oxygen saturation in Arterial blood by Pulse oximetry 2023-11-05 00:15:00 99 /min [facility] Systolic blood pressure 2023-11-04 21:30:00 108 mm[Hg] [facility] Diastolic blood pressure 2023-11-04 21:30:00 80 mm[Hg] [facility] Body temperature 2023-11-04 21:20:00 36.94 [place] [facility] Respiratory rate 2023-11-04 21:20:00 20 /min [facility] Body height 2023-11-04 21:08:00 160 cm [facility] Body weight 2023-11-04 21:08:00 73.483 kg [facility] BMI 2023-11-04 21:08:00 28.70 kg/m2 [facility] Systolic blood pressure 2021-11-07 23:00:00 106 mm[Hg] [facility] Diastolic blood pressure 2021-11-07 23:00:00 66 mm[Hg] [facility] Heart rate 2021-11-07 23:00:00 91 /min [facility] Respiratory rate 2021-11-07 23:00:00 15 /min [facility] Oxygen saturation in Arterial blood by Pulse oximetry 2021-11-07 23:00:00 97 /min [facility] Body temperature 2021-11-07 17:52:00 36.72 [place] [facility] Body weight 2021-11-07 17:52:00 61.236 kg [facility] Procedures Procedure Date / Time Performed Performing Clinician Source CBC WITH DIFF 2024-02-24 13:45:00 [facility] 2024-02-23 06:53:00 Dario Ortiz [facility] HIV 1/2 AG-AB WITH REFLEX 2024-02-22 22:04:00 Meseret Cherelle [facility] HEPATITIS B SURFACE ANTIGEN 2024-02-22 21:57:[address] [facility] HB ABO GROUPING 2024-02-22 21:57:00 Meseret [facility] RHO (D) IMMUNE GLOBULIN 2024-02-22 21:57:[address] [facility] ADC OR ALEJA ONLY - RPR 2024-02-22 21:57:00 Meseret Cherelle [facility] US PELVIS > 14 WEEKS WITH TRANSVAGINAL 2024-02-22 18:41:56 [facility] (IMMUNOASSAY) - COMPREHENSIVE DRUG SCREEN 2024-02-22 13:11:00 [facility] 2024-02-22 06:23:00 [facility] URINE CULTURE 2024-02-22 06:23:00 [facility] 2024-02-22 06:21:00 Meseret Cherelle [facility] LIPASE 2024-02-22 06:21:00 Meseret [facility] COMP. METABOLIC PANEL ([id number]) 2024-02-22 06:21:00 [facility] WITH DIFF 2024-02-22 06:21:00 [facility] THIRD TRIMESTER ULTRASOUND 2024-01-31 20:47:[address] [facility] POCT URINALYSIS W/O SPECIFIC GRAVITY 2024-01-26 00:00:[address] [facility] TDAP VACCINE, >11 YRS, IM 2024-01-12 20:58:[address] [facility] POCT URINALYSIS W/O SPECIFIC GRAVITY 2024-01-12 00:00:00 [facility] (IMMUNOASSAY) - COMPREHENSIVE DRUG SCREEN 2023-12-29 15:09:00 Cherelle Carl [facility] POCT URINALYSIS W/O SPECIFIC GRAVITY 2023-12-29 00:00:00 Cherelle Carl [facility] SCANNED LAB RESULTS 2023-12-13 16:34:28 Doctor Belén ricci, Lacey [facility] SCANNED LAB RESULTS 2023-12-13 15:45:57 Doctor Belén ricci, Lacey [facility] SECOND AND THIRD TRIMESTER ULTRASOUND 2023-12-02 14:38:33 Cherelle Carl [facility] SECOND AND THIRD TRIMESTER ULTRASOUND 2023-12-02 14:38:32 Cherelle Carl [facility] POCT URINALYSIS W/O SPECIFIC GRAVITY 2023-11-23 00:00:00 Cherelle Carl [facility] CBC WITHOUT DIFF 2021-11-07 22:54:00 Ricardo Fuentes [facility] US PELVIS COMPLETE WITH TRANSVAGINAL 2021-11-07 22:50:00 Ricardo Fuentes [facility] CT ABDOMEN PELVIS W CONTRAST 2021-11-07 20:57:28 Ricardo Fuentes [facility] AMMONIA, PLASMA 2021-11-07 20:38:00 [facility] 2021-11-07 20:38:00 [facility] POCT TEST 2021-11-07 20:34:00 Aleah Fuentes [facility] LIPASE 2021-11-07 19:47:00 Ricardo Fuentes [facility] COMP. METABOLIC PANEL ([id number]) 2021-11-07 19:47:00 Ricardo Fuentes [facility] CBC WITH DIFF 2021-11-07 19:47:00 Ricardo Fuentes [facility] PROTHROMBIN TIME / INR 2021-11-07 19:47:00 Morris Fuentes [facility] CONSENT/REFUSAL FOR DIAGNOSIS AND TREATMENT 2021-11-07 17:48:44 Doctor Unassigned, Lacey [facility] NOTICE OF PRIVACY PRACTICES 2021-11-07 17:45:28 Doctor Unassigned, Lacey [facility] CONSENT/REFUSAL FOR DIAGNOSIS AND TREATMENT 2021-11-07 17:41:07 Doctor Unassigned, Lacey [facility] Encounters Start Date/Time End Date/Time Encounter Type Admission Type Attending [facility] Care Department Encounter ID Source 2024-02-16 19:40:40 Outpatient X [facility] [id number] [facility] 2023-12-13 00:00:00 2024-09-16 07:48:24 Orders Only Doctor Unassigned, Lacey Doctor Unassigned, [place] [facility] ([facility]) [id number] [facility] 2023-12-13 00:00:00 2024-09-16 07:48:13 Orders Only Doctor Unassigned, Lacey Doctor Unassigned, [place] [facility] ([facility]) [id number] [facility] 2024-02-08 00:00:00 2024-03-11 18:21:09 Patient Secure Msg Doctor Unassigned, Lacey Doctor Unassigned, Lacey [facility] [id number] [facility] 2024-02-24 00:00:00 2024-02-25 14:05:37 Telephone Cherelle Carl [facility] [id number] 4.2.7.2.686 [id number] 134 [id number] [facility] 2024-02-21 22:52:00 2024-02-24 12:25:00 Inpatient P CHERELLE CARL VIEN [facility] [id number] [facility] 2024-02-21 22:52:00 2024-02-24 12:25:00 Hospital Encounter Cherelle Carl [facility] 1..840.114 350.1.13.10 4.2.7.2.686 [id number] [id number] [facility] 2024-02-23 14:30:00 2024-02-23 14:30:00 Outpatient R [facility] [id number] [facility] 2024-02-23 01:52:00 2024-02-23 04:32:00 Anesthesia Event Js Ortiz [facility] 1..840.114 350.1.13.10 4.2.7.2.686 [id number] [facility] 2024-02-22 10:15:00 2024-02-22 10:15:00 Outpatient R [facility] [id number] [facility] 2024-02-21 00:00:00 2024-02-21 13:39:24 Telephone Cherelle Carl [facility] 1.2.840.114 350.1.13.10 4.2.7.2.686 [id number] [facility] 2024-01-19 00:00:00 2024-02-19 18:16:05 Patient Secure Msg Doctor Unassigned, Lacey [facility] 1.2.840.114 350.1.13.10 4.2.7.2.686 [id number] [facility] 2024-02-16 18:12:00 2024-02-16 19:40:00 Outpatient X BRITTANY NORWOOD VIVIAN [facility] [id number] [facility] 2024-02-16 18:12:00 2024-02-16 19:40:00 Emergency AdBrittany todd [facility] 1.2.840.114 350.1.13.10 4.2.7.2.686 [id number] [facility] 2024-02-09 13:00:00 2024-02-09 13:00:00 Outpatient R [facility] [id number] [facility] 2024-01-31 14:45:00 2024-01-31 16:15:35 Outpatient P MIKAYLA BEAUDEBBIE DEGROOT [facility] [id number] [facility] 2024-01-31 14:45:00 2024-01-31 16:15:35 Bleach Boiler Filler Visit Ultrasound, Amber Degroot [facility] [employer] [facility] 1.2.840.114 350.1.13.10 4.2.7.2.686 [id number] [facility] 2024-01-26 14:30:00 2024-01-26 15:16:39 Outpatient R KYLE CARLEN MESERET [facility] [id number] [facility] 2024-01-26 14:30:00 2024-01-26 15:16:39 Routine Visit Cherelle Carl [facility] 1.2.840.114 350.1.13.10 4.2.7.2.686 [id number] 134 [id number] [facility] 2024-01-18 09:15:00 2024-01-18 10:38:33 Outpatient R [facility] [id number] [facility] 2024-01-18 09:15:00 2024-01-18 09:30:00 Bleach Boiler Filler Visit 2, Adc Lab Cherelle Carl [facility] 1.2.840.114 350.1.13.10 4.2.7.2.686 [id number] [facility] 2024-01-12 16:00:00 2024-01-12 16:28:01 Outpatient R [facility] [id number] [facility] 2024-01-12 16:00:00 2024-01-12 16:28:01 Routine Visit Cherelle Carl [facility] 1.2.840.114 350.1.13.10 4.2.7.2.686 [id number] 134 [id number] [facility] 2023-11-26 00:00:00 2024-01-01 18:10:48 Patient Secure Msg Doctor Unassigned, Lacey [facility] 1.2.840.114 350.1.13.10 4.2.7.2.686 [id number] 134 [id number] [facility] 2023-12-29 09:15:00 2023-12-29 10:00:28 Outpatient R [facility] [id number] [facility] 2023-12-29 09:15:00 2023-12-29 10:00:28 Routine Visit Cherelle Carl [facility] 1.2.840.114 350.1.13.10 4.2.7.2.686 [id number] 134 [id number] [facility] 2023-11-24 00:00:00 2023-12-25 18:04:15 Patient Secure Msg Doctor Unassigned, Lacey [facility] 1.2.840.114 350.1.13.10 4.2.7.2.686 [id number] [facility] 2023-12-21 13:15:00 2023-12-21 13:15:00 Outpatient R [facility] [id number] [facility] 2023-12-08 00:00:00 2023-12-08 08:33:30 Telephone Cherelle Carl [facility] 1.2.840.114 350.1.13.10 4.2.7.2.686 [id number] [facility] 2023-12-02 08:00:00 2023-12-02 08:54:38 Outpatient P VASYL KO [facility] [id number] [facility] 2023-12-02 08:00:00 2023-12-02 08:54:38 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 Visit 1, [facility] Room Vasyl Ko [facility] [employer] 1.2.840.114 350.1.13.10 4.2.7.2.686 [id number] [facility] 2023-12-02 00:00:00 2023-12-02 00:00:00 Telephone Cherelle Carl [facility] 1.2.840.114 350.1.13.10 4.2.7.2.686 [id number] 134 [id number] [facility] 2023-11-24 00:00:00 2023-11-24 00:00:00 Case Management Cherelle Carl [facility] 1.2.840.114 350.1.13.10 4.2.7.2.686 [id number] [facility] 2023-11-24 00:00:00 2023-11-24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 manner and inflated with 60 cc of normal saline without complications. Patient tolerated the procedure well. Cherelle Carl MD #[id number] [facility] Notes Date/Time Note Provider Source 2024-02-24 11:18:13 Problem: Falls, Risk of Goal: Absence of falls 02/24/2024 1118 by Martha Harper RN Outcome: Adequate for discharge 02/24/2024 0940 by Martha Harper RN Outcome: Progressing as expected Problem: Pain Goal: Control of pain at or below patient's documented comfort goal 02/24/2024 1118 by Martha Harper RN Outcome: Adequate for discharge 02/24/2024 0940 by Martha Harper RN Outcome: Progressing as expected Goal: Reduction in pain sensation 02/24/2024 1118 by Martha Harper RN Outcome: Adequate for discharge 02/24/2024 0940 by Martha Harper RN Outcome: Progressing as expected Problem: Complications of hemorrhage (risk or actual) Goal: Absence of active bleeding 02/24/2024 1118 by Martha Harper RN Outcome: Adequate for discharge 02/24/2024 0940 by Martha Harper RN Outcome: Progressing as expected Goal: Absence of complications 02/24/2024 1118 by Martha Harper RN Outcome: Adequate for discharge 02/24/2024 0940 by Martha Harper RN Outcome: Progressing as expected Problem: Infection Risk Goal: Absence of infection 02/24/2024 1118 by Martha Harper RN Outcome: Adequate for discharge 02/24/2024 0940 by Martha Harper RN Outcome: Progressing as expected Problem: Bleeding, Risk of Goal: Absence of impaired coagulation signs and symptoms 02/24/2024 1118 by Martha Harper, TRINI Outcome: Adequate for discharge 02/24/2024 0940 by Martha Harper RN Outcome: Progressing as expected Goal: Absence of active bleeding 02/24/2024 1118 by Martha Harper RN Outcome: Adequate for discharge 02/24/2024 0940 by Martha Harper RN Outcome: Progressing as expected Problem: Discharge Planning - Goal: Adequate for discharge 02/24/2024 1118 by Martha Harper RN Outcome: Adequate for discharge 02/24/2024 0940 by Martha Harper RN Outcome: Progressing as expected Goal: Mood stable 02/24/2024 1118 by Martha Harper RN Outcome: Adequate for discharge 02/24/2024 0940 by Martha Harper RN Outcome: Progressing as expected Problem: Discharge Planning Goal: Adequate for discharge 02/24/2024 1118 by Martha Harper RN Outcome: Adequate for discharge 02/24/2024 0940 by Martha Harper RN Outcome: Progressing as expected Goal: Bilirubin within specified parameters 02/24/2024 111 by Martha Harper RN Outcome: Adequate for discharge 02/24/2024 0940 by Martha Harper RN Outcome: Progressing as expected Goal: Knowledge of discharge procedure 02/24/2024 111 by Martha Harper RN Outcome: Adequate for discharge 02/24/2024 0940 by Martha Harper RN Outcome: Progressing as expected Goal: Knowledge of infant care 02/24/2024 1118 by Martha Harper, TRINI Outcome: Adequate for discharge 02/24/2024 0940 by Martha Harper RN Outcome: Progressing as expected Problem: Body Temperature - Abnormal, Risk of Goal: Body temperature within specified parameters 02/24/2024 1118 by Martha Harper RN Outcome: Adequate for discharge 02/24/2024 0940 by Martha Harper RN Outcome: Progressing as expected Problem: Feeding Goal: Adequate nutritional intake 02/24/2024 1118 by Martha Harper RN Outcome: Adequate for discharge 02/24/2024 0940 by Martha Harper RN Outcome: Progressing as expected Problem: Breast-feeding - Ineffective Goal: Effective breast-feeding 02/24/2024 1118 by Martha Harper RN Outcome: Adequate for discharge 02/24/2024 0940 by Martha Harper RN Outcome: Progressing as expected Problem: Parent-Infant Attachment - Impaired, Risk of Goal: Parent- bonding initiation 02/24/2024 1118 by Martha Harper RN Outcome: Adequate for discharge 02/24/2024 0940 by Martha Harper RN Outcome: Progressing as expected Problem: Procedure Routine Goal: Absence of post-procedure complications 02/24/2024 1118 by Martha Harper RN Outcome: Adequate for discharge 02/24/2024 0940 by Martha Harper RN Outcome: Progressing as expected Goal: Knowledge of procedure 02/24/20241117 by Martha Harper RN Outcome: Adequate for discharge 02/24/2024 0940 by Martha Harper RN Outcome: Progressing as expected Problem: Infection, risk to infant, related to maternal health conditions Goal: Absence of infection 02/24/20248 by Martha Harper RN Outcome: Adequate for discharge 02/24/2024 0940 by Martha Harper RN Outcome: Progressing as expected Martha Harper RN [facility] 2024-02-24 09:41:18 Problem: Falls, Risk of Goal: Absence of falls Outcome: Progressing as expected Problem: Pain Goal: Control of pain at or below patient's documented comfort goal Outcome: Progressing as expected Goal: Reduction in pain sensation Outcome: Progressing as expected Problem: Complications of hemorrhage (risk or actual) Goal: Absence of active bleeding Outcome: Progressing as expected Goal: Absence of complications Outcome: Progressing as expected Problem: Infection Risk Goal: Absence of infection Outcome: Progressing as expected Problem: Bleeding, Risk of Goal: Absence of impaired coagulation signs and symptoms Outcome: Progressing as expected Goal: Absence of active bleeding Outcome: Progressing as expected Problem: Discharge Planning - Goal: Adequate for discharge Outcome: Progressing as expected Goal: Mood stable Outcome: Progressing as expected Problem: Discharge Planning Goal: Adequate for discharge Outcome: Progressing as expected Goal: Bilirubin within specified parameters Outcome: Progressing as expected Goal: Knowledge of discharge procedure Outcome: Progressing as expected Goal: Knowledge of care Outcome: Progressing as expected Problem: Body Temperature - Abnormal, Risk of Goal: Body temperature within specified parameters Outcome: Progressing as expected Problem: Feeding Goal: Adequate nutritional intake Outcome: Progressing as expected Problem: Breast-feeding - Ineffective Goal: Effective breast-feeding Outcome: Progressing as expected Problem: Parent-Infant Attachment - Impaired, Risk of Goal: Parent-infant bonding initiation Outcome: Progressing as expected Problem: Procedure Routine Goal: Absence of post-procedure complications Outcome: Progressing as expected Goal: Knowledge of procedure Outcome: Progressing as expected Problem: Infection, risk to infant, related to maternal health conditions Goal: Absence of infection Outcome: Progressing as expected [facility] 2024-02-24 09:35:00 Received MR from [facility]. Placed on provider's desk for review. SHERRY LAWSON RN 02/24/2024 9:35 AM [facility] Sherry Lawson RN [facility] 2024-02-23 18:50:55 Problem: Falls, Risk of Goal: Absence of falls Outcome: Progressing as expected Problem: Pain Goal: Control of pain at or below patient's documented comfort goal Outcome: Progressing as expected Goal: Reduction in pain sensation Outcome: Progressing as expected Problem: Complications of hemorrhage (risk or actual) Goal: Absence of active bleeding Outcome: Progressing as expected Goal: Absence of complications Outcome: Progressing as expected Problem: Infection Risk Goal: Absence of infection Outcome: Progressing as expected Problem: Bleeding, Risk of Goal: Absence of impaired coagulation signs and symptoms Outcome: Progressing as expected Goal: Absence of active bleeding Outcome: Progressing as expected Problem: Discharge Planning - Goal: Adequate for discharge Outcome: Progressing as expected Goal: Mood stable Outcome: Progressing as expected Problem: Discharge Planning Goal: Adequate for discharge Outcome: Progressing as expected Goal: Bilirubin within specified parameters Outcome: Progressing as expected Goal: Knowledge of discharge procedure Outcome: Progressing as expected Goal: Knowledge of care Outcome: Progressing as expected Problem: Body Temperature - Abnormal, Risk of Goal: Body temperature within specified parameters Outcome: Progressing as expected Problem: Feeding Goal: Adequate nutritional intake Outcome: Progressing as expected Problem: Breast-feeding - Ineffective Goal: Effective breast-feeding Outcome: Progressing as expected Problem: Parent-Infant Attachment - Impaired, Risk of Goal: Parent-infant bonding initiation Outcome: Progressing as expected Problem: Procedure Routine Goal: Absence of post-procedure complications Outcome: Progressing as expected Goal: Knowledge of procedure Outcome: Progressing as expected Problem: Infection, risk to , related to maternal health conditions Goal: Absence of infection Outcome: Progressing as expected Mildred Rashid RN [facility] 2024-02-23 08:30:00 Problem: Falls, Risk of Goal: Absence of falls Outcome: Progressing as expected Problem: Pain Goal: Control of pain at or below patient's documented comfort goal Outcome: Progressing as expected Goal: Reduction in pain sensation Outcome: Progressing as expected Problem: Complications of hemorrhage (risk or actual) Goal: Absence of active bleeding Outcome: Progressing as expected Goal: Absence of complications Outcome: Progressing as expected Problem: Infection Risk Goal: Absence of infection Outcome: Progressing as expected Problem: Bleeding, Risk of Goal: Absence of impaired coagulation signs and symptoms Outcome: Progressing as expected Goal: Absence of active bleeding Outcome: Progressing as expected Problem: Discharge Planning - Goal: Adequate for discharge Outcome: Progressing as expected Goal: Mood stable Outcome: Progressing as expected Problem: Discharge Planning Goal: Adequate for discharge Outcome: Progressing as expected Goal: Bilirubin within specified parameters Outcome: Progressing as expected Goal: Knowledge of discharge procedure Outcome: Progressing as expected Goal: Knowledge of care Outcome: Progressing as expected Problem: Body Temperature - Abnormal, Risk of Goal: Body temperature within specified parameters Outcome: Progressing as expected Problem: Infant Feeding Goal: Adequate nutritional intake Outcome: Progressing as expected Problem: Breast-feeding - Ineffective Goal: Effective breast-feeding Outcome: Progressing as expected Problem: Parent-Infant Attachment - Impaired, Risk of Goal: Parent- bonding initiation Outcome: Progressing as expected Problem: Procedure Routine Goal: Absence of post-procedure complications Outcome: Progressing as expected Goal: Knowledge of procedure Outcome: Progressing as expected Problem: Infection, risk to , related to maternal health conditions Goal: Absence of infection Outcome: Progressing as expected Aishwarya Jiang RN [facility] 2024-02-23 07:04:00 Patient: Anne Seth Procedure Summary Date: 02/23/24 Room / Location: Anesthesia Start: 151 Anesthesia Stop: 431 Procedure: CENTRAL NEURAXIAL BLOCK Diagnosis: Scheduled Providers: Responsible Provider: Js Ortiz DO Anesthesia Type: Epidural ASA Status: 3 Anesthesia Type: Epidural Last vitals - hemodynamically stable; see nursing flowsheet for details. BP Temp Pulse Resp SpO2 There were no known notable events for this encounter. Anesthesia Post Evaluation Patient location during evaluation: bedside Patient participation: complete - patient participated Level of consciousness: awake and alert Pain score: 2 Pain management: satisfactory to patient Multimodal analgesia pain management approach Airway patency: patent Two or more strategies used to mitigate risk of obstructive sleep apnea Cardiovascular status: acceptable, blood pressure returned to baseline and hemodynamically stable Respiratory status: acceptable, nonlabored ventilation, spontaneous ventilation and unassisted Hydration status: stable AN-ANESTHESIOLOGY ANESTHESIOLOGIST [facility] 2024-02-23 04:21:23 Problem: Falls, Risk of Goal: Absence of falls 02/23/2024417 by Aryan Hayden, TRINI Outcome: Progressing as expected 02/22/20241927 by Aryan Hayden RN Outcome: Progressing as expected Problem: Pain Goal: Control of pain at or below patient's documented comfort goal 02/23/2024 0418 by Aryan Hayden RN Outcome: Progressing as expected 02/22/2024 1928 by Aryan Hayden RN Outcome: Progressing as expected Goal: Reduction in pain sensation Outcome: Progressing as expected Problem: Complications of hemorrhage (risk or actual) Goal: Absence of active bleeding Outcome: Progressing as expected Goal: Absence of complications Outcome: Progressing as expected Problem: Infection Risk Goal: Absence of infection Outcome: Progressing as expected Problem: Bleeding, Risk of Goal: Absence of impaired coagulation signs and symptoms Outcome: Progressing as expected Goal: Absence of active bleeding Outcome: Progressing as expected Problem: Discharge Planning - Goal: Adequate for discharge Outcome: Progressing as expected Goal: Mood stable Outcome: Progressing as expected Problem: Discharge Planning Goal: Adequate for discharge Outcome: Progressing as expected Goal: Bilirubin within specified parameters Outcome: Progressing as expected Goal: Knowledge of discharge procedure Outcome: Progressing as expected Goal: Knowledge of infant care Outcome: Progressing as expected Problem: Body Temperature - Abnormal, Risk of Goal: Body temperature within specified parameters Outcome: Progressing as expected Problem: Breast-feeding - Ineffective Goal: Effective breast-feeding Outcome: Progressing as expected Problem: Parent-Infant Attachment - Impaired, Risk of Goal: Parent-infant bonding initiation Outcome: Progressing as expected Problem: Procedure Routine Goal: Absence of post-procedure complications Outcome: Progressing as expected Goal: Knowledge of procedure Outcome: Progressing as expected Problem: Infection, risk to , related to maternal health conditions Goal: Absence of infection Outcome: Progressing as expected [facility] 2024-02-23 04:00:26 DELIVERY BY SPONTANEOUS VAGINAL DELIVERY Delivery Date: 02/23/2024 Delivery Time: 3:16 AM Delivery Summary The patient was admitted to the Labor & Delivery unit for induction at 37 weeks due to oligohydramnios. Delivery Physician: Cherelle Carl MD Intrapartum Anesthesia/Analgesia: Epidural Mode of Delivery: Delivery of eli fetus with cephalic presentation Fetus Spontaneous vaginal delivery of head with cephalic position, right occipital anterior. As the head crowned and distended the perineum, no episiotomy was performed. A blue towel was used to protect the perineum as the head crowned and delivered. The other hand was used to exert pressure on the occiput to control the delivery of the head. The perineum was pushed with a towel-draped hand as the head and mouth was delivered over the perineum. The head was allowed to rotate externally to achieve natural body posture. Examination of neck revealed no umbilical cord. The shoulder was delivered by gentle downward traction applied to head and downward traction for the delivery of anterior shoulder. This was followed by upward traction with delivery of posterior shoulder and body. After the delivery of infant, bulb suction was performed from ororpharynx and nostril with removal of clear amniotic fluid. A normal, male was delivered. The umbilical cord was double clamped, cut and the was handed off the field to the circulating nurse Placenta Placenta was delivered spontaneously while the abdominal hand lifted the uterus cephalad and other hand keeping the umbilical cord slightly taut. Laceration: first degree right labial laceration Laceration Repair: Minor - lacerations (perineum, sidewall, labial, vaginal floor and/or periurethral) were closed with interrupted sutures. . Fourth Stage Fourth stage of labor was managed by uterine massage with abdominal hand and infusion 30 units of pitocin mixed with intravenous fluid. EBL: 200 Complications: None Weight: 3260 g 1 Minute 5 Minute 10 Minute Totals: 8 9 Cherelle Carl MD 02/23/2024 4:01 AM [facility] 2024-02-23 01:42:00 Name/ MRN / Age / Gender: Anne Seth, [id number] 38 year old female BMI: Estimated body mass index is 30.04 kg/m? as calculated from the following: Height as of 02/16/24: 1.626 m (5' 4"). Weight as of this encounter: 79.4 kg (175 lb). Allergies: Patient has no known allergies. Last Vitals: BP Readings from Last 1 Encounters: 02/23/24 106/66 Pulse Readings from Last 1 Encounters: 02/23/24 96 SpO2 Readings from Last 1 Encounters: 02/23/24 98% Date of Surgery: Surgeon: * Surgery not found * Procedure: CENTRAL NEURAXIAL BLOCK OR Location: * No surgery found * Anesthesia History Anesthesia History Negative Previous Anesthetics/Airways Cardiovascular Negative Cardiac ROS Pulmonary Negative Pulmonary ROS Neuro/Musculoskeletal (+) Psychiatric history and depression (+) Anxiety GI/Hepatic Comments: Issues with N/V leading to current admission (+) GERD Liver disease: Hx HCV. 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 Hold on DOS. Phentermine: Alert [facility] anesthesiologist SGLT2 Inhibitors: "gliflozins" to be held for 3 days prior to elective surgeries GLP1 Agonosit: stop 7 days prior to surgery MAC Cases: Continue taking TRISH inhibitors and ARBs ASA Classification ASA: 3 Labs: Chemistry 02/22/2024 CBC 02/22/2024 136 108 6 (L) 97 18.33 (H) 7.5 (L) 229 3.5 22 (L) 0.49 (L) 25.2 (L) eGFR: 123.1 Date: 02/22/2024 ANC: 14.84 (H) Date: 02/22/2024 LFTs 02/22/2024 Coags AST: 18 AP: 139 (H) Prot: 6.4 Ca: 8.6 PT: - Date: - ALT: 8 T Luigi: 0.9 Alb: 3.1 (L) PTT: - Date: - PO4: - Date: - INR: - Date: - Cardiac Endocrine & other pBNP: - Date: - A1C: - Date: - Trop I: - Date: - POCT A1C: - Date: - CK: - Date: - TSH: - Date: - CKMB: - Date: - FT4: - Date: - LDL: - Date: - Lact: - Date: - Procal: - Date: - Respiratory -|-|-|-|- D-dimer: - ABG Date: - Date: - Miscellaneous Type and Screen: A POSITIVE Antibody: Negative Date: 02/22/2024 POCT : Negative Date: 11/07/2021 Current Medications: No outpatient medications have been marked as taking for the 02/21/24 encounter (Hospital Encounter). Previous Surgeries: Past Surgical History: Procedure Laterality Date LAPAROSCOPIC SALPINGECTOMY Left 2009 ectopic Anesthesia Physical Exam General no apparent distress and alert and oriented x 3 patient is not obtunded Neuro/Psych nonfocal Dental poor dentition Abdominal (+) gravid Airway Mallampati score:II TM distance:> 5 cm Neck ROM: full Mouth opening:normal (+) Normal facies Extremity Pulmonary pulmonary exam normal Other Cardiovascular cardiovascular exam normal Anesthesia Plan ASA Status: 3 Plan discussed during pre-op evaluation: General, Epidural and Spinal Anesthetic plan on DOS: Epidural Anesthesia plan discussed with: patient or investment representative Post-Operative Analgesia: routine analgesia & antiemetics Recovery Plan: LDR Additional comments: [facility] 2024-02-22 19:28:45 Problem: Intrapartum process (including labor pain) Goal: Absence of or reduction of complications of labor Outcome: Progressing as expected Goal: Able to cope with pain Outcome: Progressing as expected Goal: Adequate to move to next level of care Outcome: Progressing as expected Goal: Reduction in pain sensation Outcome: Progressing as expected Problem: Falls, Risk of Goal: Absence of falls Outcome: Progressing as expected Problem: Pain Goal: Control of pain at or below patient's documented comfort goal Outcome: Progressing as expected Goal: Reduction in pain sensation Outcome: Progressing as expected [facility] 2024-02-22 03:24:18 38 year old, , 37 weeks gestation, brought in by EMS from [facility] due to nausea and vomiting for the past three days. She was brought in with IV NS, in her right arm with 20G. Changed into hospital gown, clean catch urine obtained, plan of care explained and patient placed on monitors. She denies any vaginal bleeding or leakage of fluid, states active movements. Patient states she has not been able to keep anything down since morning and says she threw up yellowish fluid. Category one tracing, no uterine activity noted. Vaginal exam done, cervix closed. Patient threw up about 200 mls of clear fluid one time when she first got here. She states gastric pain with throwing up. She was given zofran at [facility]. Dr Carl was called with patient's complaints with orders received for CBC, CMP, Lipase, Amylase, NS, I litre bolus then D5 NS at 125ml/ hr. UA, UC, zofran, pepcid and patient to be NPO until seen in the AM. Patient threw up one time and has slept for most of the night without any more complaints Associated attestation - Cherelle Carl MD - 02/22/2024 6:08 PM CDT Agreed with RN Cherelle Carl MD 02/22/2024 6:08 PM Aryan Hayden RN [facility] 2024-02-21 13:38:45 Returned patients call. Patient is requesting a sooner appointment. Patient seen in L&D. Patient scheduled for tomorrow 02/22/[address] Carl. Vijay Michaud RN 02/21/2024 1:39 PM Vijay Michaud RN [facility] 2024-02-21 09:15:30 Pt was at the ER, c/o of throwing a lot, unable to eat x 4days, lower back pain and stomach cramps. Pt has a scheduled appt on 02/22-Meseret. Pt would like a call from a nurse if she can be seen today or tomorrow. Emmanuelle Sumner [facility] 2024-02-16 18:11:55 Came in due to vaginal cramping and tightness, 3rd . Send to L&D talked to leila, RN Linda Sen RN [facility] 2024-01-26 14:30:00 Age: [age] year old GA: 33w1d Doing well without concerns today Partner reports that patient has feet pain. Patient states that it has been better since she stopped wearing flip-flop and now wearing better supportive shoes as she is on her feet for long period of times. Discussed well supportive shoes and compression stockings. Feet normal on exam. History of drug use -States that she uses Xanax (on the street) to treat her mood symptoms outside of . Has stopped using Xanax since she found out she is . -Currently using marijuana -UDS on 11/23/2023 and 12/29/23 showed positive methamphetamine and amphetamine. Patient is aware of result and has been counseled to stop using drugs. -will repeat UDS at 36 wks History of depression -States that she was on medication years ago -Has stopped Zoloft since last visit -EPDS 11 today. Denies SI/HI. BRAULIO 7 score 10. -Crisis hotline and ER precautions given - Local counseling resources given as well. Referral placed and patient states she will call back to make appointment due to transportation issue -Continue to monitor as patient does not desire medications at this time Positive HCV -HCV viral load not detected on 01/18/24. -Will refer for evaluation HSV 1 and 2 IgG positive -Suppression at 36 weeks unless clinically indicated otherwise Anemia -On iron supplements Follow-up ultrasound scheduled for 01/31/2024 Follow-up in 2 weeks for visit with [employer] Follow-up in 4 wks for PN with Carl [facility] 2024-01-18 09:15:00 50 glucola was given @ 0918. Pt has no red dye allergies. Finished @ 0920. Draw Time @ 1020. Pt also recommended to be draw by Lisa. Angeline Marte 01/18/2024 9:[address] [facility] 2024-01-18 09:15:00 Images from the original note were not included. Venipuncture collection performed by clean technique on the right anticubitus. Total of 2 attempts were made. Slight pressure and a bandage/dressing were applied to the site(s). The patient experienced no complications. The following specimens were processed according to instructions and sent to [facility] laboratories per lab order on 01/18/2024 : LT BLUE SST 2 RED 1 LAV 2 PPT 1 DK GREEN (LiHep) DK GREEN (SodH) PHAM DK BLUE (K2) DK BLUE (S) ACD Blood Culture NIPT/NTD [facility] 2024-01-12 16:00:00 Age: [age] year old GA: 31w1d Doing well without concerns today History of drug use -States that she uses Xanax (on the street) to treat her mood symptoms outside of . Has stopped using Xanax since she found out she is . -Currently using marijuana -UDS on 11/23/2023 and 12/29/23 showed positive methamphetamine and amphetamine. Patient is aware of result and has been counseled to stop using drugs. -will repeat UDS at 36 wks History of depression -States that she was on medication years ago -States that she is doing well on Zoloft 100 mg daily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
[2024-12-04] MEDS ORDERED: LORAZEPAM 1 MG TABLET ONE (15:26)
--- NOTE | 2024-12-04 15:54 | RAD REPORT ---
Exam:Wrist Left 3 View HISTORY: Left wrist pain FINDINGS: No fracture or dislocation seen. If the patient continues to have symptoms to suggest an occult fracture then follow-up x-ray in 7 day s would be recommended No significant bone or joint abnormality noted
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
[2024-12-04 21:21] VITALS: TEMP 98.3; O2SAT 100
[2024-12-04 21:26] VITALS: BP 96/70
== END 2024-12-04 16:50 | disposition home or self-care (01) ==
LOC: ER 14:05
DX: S63.8X2A Sprain of other part of left wrist and hand, initial encounter (principal); F17.210 Nicotine dependence, cigarettes, uncomplicated
CPT/HCPCS: 99284

== ENCOUNTER 2024-12-23 13:45 | Emergency (ER) | payer OTHER ==
--- OUTSIDE RECORDS SUMMARY | 2024-12-23 13:50 | XMS REPORT | Continuity of Care Document ---
Author Name Unknown Address [address] [facility]. [address] [place] [address] [facility] [place] Address [address] [facility]. [address] [place] [address] Care Team Providers Care Sustainability Communicator Name Role Phone Pcp, Patient Does Not Have A Primary Care Physic lizbeth Doctor Unassigned, [place] Attending Clinician U Cherelle Simmons MD Attending Clinician CHERELLE CARL Attending Clinician Unavailable Js Ortiz DO Attending Clinician [phone] Doctor Unassigned, [place] Attending Clinician U BRITTANY Ríos Attending Clinician Unavailable BRITTANY NORWOOD Attending Clinician Unavailable HUY BAY Attending Clinician Unavailable BEAU DEGROOT Attending Clinician Unavailable BEAU DEGROOT Attending Clinician Unavailable Ultrasound, Ang[facility] Attending Clinician Unavaila ble 2, [facility] Attending Clinician Unavailable VASYL KO Attending Clinician Unavailable VASYL KO Attending Clinician Unavailable 1, [facility] Us Room Attending Clinician Unavailab Vasyl Cheung MD Attending Clinician [phone] Ricardo Fuentes DO Attending Clinician [phone] RICARDO FUENTES Attending Clinician Unavailable ENZO CARDENAS Attending Clinician Unavailable BRITTANY NORWOOD Admitting Clinician Unavailable CHERELLE CARL Admitting Clinician Unavailable RICARDO FUENTES Admitting Clinician Unavailable Payers Payer Name Policy Type Policy Number Effective Date Expirati on Date Source [place] SOO ALVARADO [id number] 2023 00:00:00 [employer] [id number] 2023 00:00:00 2023 00:00:00 Problems Condition Name Condition Details Condition Category Status Onset Date Resolution Date Last Treatment Date Treating Clinician Comments Source Obesity (BMI 30-39.9) Obesity (BMI 30-39.9) Disease Active 02-23 00:00: 00 [facility] Liveborn infant, of eli , born in hospital by vaginal delivery Liveborn , of eli , born in hospital by vaginal delivery Disease Active 02-22 00:00: 00 [facility] 37 weeks gestation of 37 weeks gestation of Disease Active 02-21 00:00: 00 [facility] Variable heart rate decelerati ons, antepartum Variable heart rate decelerati ons, antepartum Disease Active 02-21 00:00: 00 [facility] 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 trimester 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 trimester Disease Active 12-28 00:00: 00 [facility] Hepatitis C virus infection without hepatic coma, unspecifie d chronicity Hepatitis C virus infection without hepatic coma, unspecifie d chronicity Disease Active 12-28 00:00: 00 [facility] 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 Disease Active 12-28 00:00: 00 [facility] High-risk in third trimester High-risk in third trimester Disease Active 11-22 00:00: 00 [facility] 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 Disease Active 11-22 00:00: 00 [facility] Excessive weight gain during , antepartum Excessive weight gain during , antepartum Disease Active 11-22 00:00: 00 [facility] Nausea and vomiting during Nausea and vomiting during Disease Active 4-04 00:00: 00 [facility] Nausea and vomiting during Nausea and vomiting during Disease Active 4-04 00:00: 00 [facility] Tobacco use in , antepartum , second trimester Tobacco use in , antepartum , second trimester Disease Active 4-04 00:00: 00 [facility] Marijuana use during Marijuana use during Disease Active 4-04 00:00: 00 [facility] Trichomona s vaginitis Trichomona s vaginitis Disease Resolve d 529 00:00: 00 2024-01-26 00:00:00 2024-01-26 14:50:24 [facility] No care in current in second trimester No care in current in second trimester Disease Resolve d 4-04 00:00: 00 2023-11-23 00:00:00 2023-11-23 10:16:20 [facility] Pyelonephr itis Pyelonephr itis Disease Resolve d 9-29 00:00: 00 2023-11-23 00:00:00 2023-11-23 10:16:09 [facility] Allergies, Adverse Reactions, Alerts Allergy Name Allergy Type Status Severity Reaction(s) Onset Date Inactive Date Treating Clinician Comments Source NO KNOWN ALLERGIE S Drug Class Active [facility] Social History Social Habit Start Date Stop Date Quantity Comments Source ASSERTION 2023-06-22 00:00:00 [facility] Exposure to SARS-CoV-2 (event) Not sure [facility] History of tobacco use Cigarette Smoker [facility] of Social function 2024-02-24 00:00:00 2024-02-24 00:00:00 [facility] Alcoholic beverage intake 2023-11-23 00:00:00 2023-11-23 00:00:00 Ex-drinker (finding) [facility] Alcohol intake 2023-11-23 00:00:00 2023-11-23 00:00:00 Ex-drinker (finding) [facility] Sex assigned at 1985 00:00:00 1985 00:00:00 [facility] Smoking Status Start Date Stop Date Source Unknown if ever smoked [facility] Smokes tobacco daily 2023-11-04 00:00:00 [facility] Medications Ordered Medication Name Filled Medication Name Start Date Stop Date Current Medication? Ordering Clinician Indication Dosage Frequency Signature (SIG) Comments Components Source ferrous sulfate tablet 325 mg 02-23 15:45: 00 Yes 325mg 325 mg, Oral, BID, First dose on Wed02/24/24 at 1045, Until Discontinu ed, Routine [facility] vitamin w/FA tablet 02-23 00:00: 00 Yes [id number] 102 1{tbl} Take 1 tablet by mouth in the morning. [facility] docusate 100 mg capsule 02-23 00:00: 00 Yes [id number] 102 200mg Take 2 capsules by mouth once daily as needed for Constipati on. [facility] ferrous sulfate 325 mg (65 mg iron) tablet 02-23 00:00: 00 Yes [id number] 102 325mg Take 1 tablet by mouth in the morning. [facility] ibuprofen 800 mg tablet 02-23 00:00: 00 Yes [id number] 102 800mg Take 1 tablet by mouth every 8 (eight) hours as needed (pain). Take with food or milk. [facility] witch Tori (TUCKS) 50 % topical pad 02-22 13:21: 04 Yes [facility] rho(D) immune globulin (RHOPHYLAC) injection 300 mcg 02-22 09:23: 52 Yes 300ug [facility] HYDROcodone -acetaminop hen (NORCO 5) 5-325 mg tablet 1 tablet 02-22 09:23: 49 Yes 1{tbl} [facility] ibuprofen (IBU) tablet 600 mg 02-22 09:23: 49 Yes 600mg 600 mg, Oral, Q6HPRN, Starting on Wed02/23/24 at 042, Until Discontinu ed, Routine, Pain (scale 4-6) [facility] acetaminoph en (TYLENOL) tablet 650 mg 02-22 09:23: 49 Yes 650mg [facility] diphenhydrA MINE (BENADRYL) tablet 25 mg 02-22 09:23: 49 Yes 25mg [facility] ondansetron (ZOFRAN (PF)) injection 4 mg 02-22 09:23: 49 Yes 4mg [facility] simethicone (GAS RELIEF (SIMETHICON E)) chewable tablet 160 mg 02-22 09:23: 49 Yes 160mg 160 mg, Oral, PC+HSPRN, Starting on Wed02/23/24 at 042, Until Discontinu ed, Routine, [facility] docusate (COLACE) capsule 200 mg 02-22 09:23: 49 Yes 200mg 200 mg, Oral, QDAILYPRN, Starting on Wed02/23/24 at 042, Until Discontinu ed, Routine, Constipati on [facility] magnesium hydroxide (MILK OF MAGNESIA) 400 mg/5 mL suspension 30 mL 02-22 09:23: 49 Yes 30mL [facility] benzocaine- menthol (DERMOPLAST ) 20-0.5 % topical spray 02-22 09:23: 48 Yes Topical, PRN, Starting on Wed02/23/24 at 0423, Until Discontinu ed, Routine, Perineum discomfort [facility] oxytocin (PITOCIN) 30 units in NS 500 mL IV infusion 02-22 08:32: 20 02-22 13:21 :05 No 300mL/h 300 mL/hr, IV Infusion, SEE-INSTRU CTIONS, Starting on Wed02/23/24 at 0332, Start at 300 mL/hr for 1 hr then 150 mL/hr for 1 hr. For post delivery uterotonic . [facility] PIB fentaNYL-ro pivacaine 2 mcg/mL-0.1 % (PF) in NS 200 mL epidural infusion RTU 02-22 07:11: 00 02-23 22:06 :07 No Epidural, CONTINUOUS PRN, Starting on Wed02/23/24 at 0211, Until Marla 02/24/24 at 1706, Routine, Intra-op [facility] lidocaine-e pinephrine (XYLOCAINE W/EPINEPHRI NE) 1.5 %-1:200,000 injection 02-22 07:04: 00 02-23 22:06 :07 No Epidural, ONCE INTRA PROCEDURE, Starting on Wed02/23/24 at 0204, Until Marla 02/24/24 at 1706, Routine, Intra-op [facility] penicillin GK 3 million units in NS 50 mL IV infusion (CNR) 02-22 04:00: 00 02-22 13:21 :05 No 310 3,000,000 Units (3 Million Units), IV Piggyback, Q4H ABX, First dose on Wed02/22/24 at 2300, Until Discontinu ed, Administer over 60 Minutes, 50 mL, Reason for Anti-Infec tive: Empiric Non-Surgic al Prophylaxi s, Duration of therapy: 72 hours, Specific indication : GBS [facility] oxytocin (PITOCIN) 30 units in NS 500 mL IV infusion 02-21 22:47: 48 02-22 13:21 :05 No 2mU/min at 2-40 mL/hr, IV Infusion, TITRATE, Starting on Wed02/22/24 at 1747, Until Wed02/23/24 at 0821, RUIZ [facility] penicillin g potassium 5 Million Units in NaCl 0.9% (NS) 100 mL MINI-BAG 02-21 22:45: 00 02-21 23:12 :00 No 510 5 Million Units, IV Piggyback, ONCE, 1 dose, On Wed02/22/24 at 1745, Administer over 60 Minutes, 100 mL, Reason for Anti-Infec tive: Empiric Non-Surgic al Prophylaxi s, Duration of therapy: Once (ED) [facility] FENTanyl PF (SUBLIMAZE (PF)) injection 100 mcg 02-21 21:46: 37 02-22 13:21 :05 No 100ug 100 mcg, Slow IV Push, Q1HPRN, Starting on Wed02/22/24 at 1646, Until Wed02/23/24 at 0821, Routine, contractio n pain without an epidural and SVE < 8 cm and Cat I strip [facility] D5W-LR IV infusion 1,000 mL 02-21 21:40: 22 02-22 13:21 :05 No 1000mL at 1-125 mL/hr, IV Infusion, TITRATE, Starting on Wed02/22/24 at 1640, Until Wed02/23/24 at 0821, Routine [facility] diphenhydrA MINE:lidoca ine 2% viscous:maa lox 1:1:1 ([facility]) oral suspension 15 mL 02-21 20:01: 29 02-22 13:21 :04 No 15mL 15 mL, Oral, PRN, Starting on Wed02/22/24 at 1501, Until Wed02/23/24 at 0821, Routine, Oral mucositis [facility] valACYclovi r (VALTREX) tablet 500 mg 02-21 14:00: 00 02-21 13:34 :00 No 500mg 500 mg, Oral, DAILY, 1 dose, First dose on Wed02/22/24 at 0900, RUIZ [facility] iron sucrose (VENOFER) 300 mg in NaCl 0.9% (NS) 250 mL infusion 02-21 13:00: 00 02-21 15:50 :00 No 300mg 300 mg, IV Infusion, ONCE, Administer over 2.5 Hours, On Wed02/22/24 at 0800, For 1 dose, Monitor for signs and symptoms for at least 30 minutes following completion of infusion. [facility] D5W 0.9% NaCl (NS) IV infusion 1,000 mL 02-21 07:00: 00 02-22 13:21 :04 No 1000mL at 125 mL/hr, 1,000 mL, IV Infusion, CONTINUOUS , Starting on Wed02/22/24 at 0200, Until Wed02/23/24 at 0821, Routine [facility] NaCl 0.9% (NS) bolus infusion 1,000 mL 02-21 06:45: 00 02-21 06:06 :00 No 1000mL at 999 mL/hr, 1,000 mL, IV Infusion, ONCE, 1 dose, On Wed02/22/24 at 0145, STAT [facility] famotidine (PEPCID (PF)) injection 20 mg 02-21 06:30: 00 02-22 13:21 :04 No 20mg 20 mg, Slow IV Push, Q12H, First dose (after last modificati on) on Wed02/22/24 at 0130, Until Discontinu ed, Routine [facility] ondansetron (ZOFRAN (PF)) injection 4 mg 02-21 05:50: 00 02-22 09:28 :54 No 4mg 4 mg, Slow IV Push, Q6HPRN, Pain (scale 4-6), Starting on Wed02/22/24 at 0050, Doses of ondansetro n 16 mg and above need to be administer ed via IV piggyback. For Dose >=24mg ECG monitoring is advisable. [facility] SERTraline (ZOLOFT) 100 mg tablet 01-11 00:00: 00 02-23 00:00 :00 No [id number] 100mg Take 1 tablet by mouth in the morning. [facility] SERTraline (ZOLOFT) 100 mg tablet 12-28 00:00: 00 01-11 00:00 :00 No [id number] 100mg Take 1 tablet by mouth in the morning. [facility] busPIRone 10 mg tablet 12-28 00:00: 00 01-11 00:00 :00 No [id number] 10mg Take 1 tablet by mouth in the morning and 1 tablet in the evening. [facility] SERTraline (ZOLOFT) 50 mg tablet 11-29 00:00: 00 12-28 00:00 :00 No [id number] 50mg Take 1 tablet by mouth in the morning. [facility] metroNIDAZO LE (FLAGYL) 500 mg tablet 11-23 00:00: 00 12-01 04:59 :00 No [id number] 500mg Take 1 tablet by mouth in the morning and 1 tablet in the evening. Do all this for 7 days. [facility] vit,calc76/ iron/folic (PNV 29-1 ORAL) 11-22 09:28: 38 02-23 00:00 :00 No [id number] Take by mouth. [facility] famotidine 20 mg tablet 11-22 00:00: 00 Yes [id number] 20mg Take 1 tablet by mouth in the morning and 1 tablet in the evening. [facility] ondansetron (ZOFRAN) 4 mg tablet 11-22 00:00: 00 Yes [id number] 4mg Take 1 tablet by mouth every 8 (eight) hours as needed for Nausea and Vomiting (N/V). [facility] ferrous sulfate (IRON, FERROUS SULFATE,) 325 mg (65 mg iron) tablet 11-22 00:00: 00 02-23 00:00 :00 No [id number] 325mg Take 1 tablet by mouth in the morning and 1 tablet in the evening. [facility] bisacodyL (DULCOLAX, BISACODYL,) 5 mg EC tablet 11-22 00:00: 00 02-23 00:00 :00 No [id number] 10mg Take 2 tablets by mouth once daily as needed for Constipati on. [facility] SERTraline (ZOLOFT) 25 mg tablet 11-22 00:00: 00 11-30 04:59 :00 No [id number] 25mg Take 1 tablet by mouth in the morning for 7 days. [facility] NaCl 0.9% (NS) IV infusion 1,000 mL 11-03 22:17: 00 Yes 1000mL at 999 mL/hr, IV Infusion, CONTINUOUS , Starting on Marla 11/04/23 at 1730, Until Discontinu ed, Routine [facility] cefTRIAXone (ROCEPHIN) 1,000 mg in NaCl 0.9% (NS) 50 mL MINI-BAG 11-07 22:30: 00 11-07 22:07 :00 No 1000mg 1,000 mg, IV Piggyback, ONCE, 1 dose, On Wed11/07/21 at 1730, Administer over 30 Minutes, 50 mL
Reas on for Anti-Infec tive: Empiric Therapy for Suspected Infection< br>Empiric Therapy Site: Urine
D uration of therapy: 72 hours [facility] iopamidol (ISOVUE 370-500 mL) injection 100 mL 11-07 22:00: 00 11-07 22:00 :00 No [id number] 100mL 100 mL, Intravenou s, ONCE, 1 dose, On Wed11/07/21 at 1700, Routine [facility] ondansetron (ZOFRAN (PF)) injection 4 mg 11-07 20:30: 00 11-07 19:52 :00 No 4mg 4 mg, Slow IV Push, ONCE, 1 dose, On Wed11/07/21 at 1530, Routine [facility] dexamethaso ne (DECADRON PHOSPHATE) injection 10 mg 11-07 20:15: 00 11-07 19:21 :00 No 10mg 10 mg, Oral, ONCE, 1 dose, On Wed11/07/21 at 1515, Routine [facility] methocarbam oL (ROBAXIN) tablet 1,000 mg 11-07 20:15: 00 11-07 19:19 :00 No 1000mg 1,000 mg, Oral, ONCE, 1 dose, On Wed11/07/21 at 1515, RUIZ [facility] ketorolac (TORADOL) injection 30 mg 11-07 20:15: 00 11-07 19:17 :00 No 30mg 30 mg, Intramuscu lar, ONCE, 1 dose, On Wed11/07/21 at 1515, RUIZ [facility] NaCl 0.9% (NS) bolus infusion 500 mL 11-07 19:30: 00 11-07 22:07 :00 No 500mL at 999 mL/hr, 500 mL, IV Infusion, ONCE, 1 dose, On Wed11/07/21 at 1430, STAT [facility] cephALEXin (KEFLEX) 500 mg capsule 11-07 00:00: 00 11-15 04:59 :00 No [id number] 500mg Take 1 capsule by mouth 3 (three) times daily for 7 days. [facility] ondansetron (ZOFRAN, HYDROCHLORI DE,) 4 mg tablet 04-30 00:00: 00 11-07 00:00 :00 No 4mg Take 1 Tab by mouth every 8 (eight) hours. [facility] acetaminoph en-codeine (TYLENOL #3) 300-30 mg tablet 04-30 00:00: 00 11-07 00:00 :00 No 2{tbl} Take 2 Tabs by mouth every 6 (six) hours as needed for Pain unrelieved by non-narcot ic analgesics . [facility] levofloxaci n (LEVAQUIN) 500 mg tablet 04-30 00:00: 00 11-07 00:00 :00 No 500mg Take 1 Tab by mouth every 24 (twenty-fo ur) hours. [facility] Immunizations Ordered Immunization Name Filled Immunization Name Date Status Comments Source TDAP Unknown Completed [facility] TDAP Unknown Completed [facility] TDAP Unknown Completed [facility] TDAP Unknown Completed [facility] TDAP Unknown Completed [facility] TDAP Unknown Completed [facility] TDAP Unknown Completed [facility] TDAP Unknown Completed [facility] TDAP Unknown Completed [facility] TDAP Unknown Completed [facility] TDAP Unknown Completed [facility] Vital Signs Vital Name Observation Time Observation Value Comments S heber Systolic blood pressure 2024-02-24 12:13:00 115 mm[Hg] [facility] Diastolic blood pressure 2024-02-24 12:13:00 81 mm[Hg] [facility] Heart rate 2024-02-24 12:13:00 88 /min [facility] Body temperature 2024-02-24 12:13:00 36.56 [place] [facility] Respiratory rate 2024-02-24 12:13:00 15 /min [facility] Oxygen saturation in Arterial blood by Pulse oximetry 2024-02-24 12:13:00 100 /min [facility] Body weight 2024-02-22 04:57:[address] [facility] BMI 2024-02-22 04:57:00 30.04 kg/m2 [facility] Heart rate 2024-02-17 00:15:00 95 /min [facility] Oxygen saturation in Arterial blood by Pulse oximetry 2024-02-17 00:15:00 100 /min [facility] Systolic blood pressure 2024-02-16 23:33:00 124 mm[Hg] [facility] Diastolic blood pressure 2024-02-16 23:33:00 83 mm[Hg] [facility] Body temperature 2024-02-16 23:33:00 37 [place] [facility] Respiratory rate 2024-02-16 23:33:00 18 /min [facility] Body height 2024-02-16 23:33:[address] [facility] Body weight 2024-02-16 23:33:[address] [facility] BMI 2024-02-16 23:33:00 29.18 kg/m2 [facility] Systolic blood pressure 2024-01-26 19:54:00 115 mm[Hg] [facility] Diastolic blood pressure 2024-01-26 19:54:00 79 mm[Hg] [facility] Heart rate 2024-01-26 19:54:00 106 /min [facility] Body height 2024-01-26 19:54:00 162.6 cm [facility] Body weight 2024-01-26 19:54:00 80.559 kg [facility] BMI 2024-01-26 19:54:00 30.48 kg/m2 [facility] Systolic blood pressure 2024-01-12 20:58:00 123 mm[Hg] [facility] Diastolic blood pressure 2024-01-12 20:58:00 78 mm[Hg] [facility] Heart rate 2024-01-12 20:58:00 92 /min [facility] 2024-01-12 20:58:00 36.61 [place] [facility] Body height 2024-01-12 20:58:00 162.6 cm [facility] Body weight 2024-01-12 20:58:00 79.742 kg [facility] BMI 2024-01-12 20:58:00 30.18 kg/m2 [facility] Systolic blood pressure 2023-12-29 14:08:00 113 mm[Hg] [facility] Diastolic blood pressure 2023-12-29 14:08:00 76 mm[Hg] [facility] Heart rate 2023-12-29 14:08:00 111 /min [facility] Body height 2023-12-29 14:08:00 162.6 cm [facility] Body weight 2023-12-29 14:08:00 78.291 kg [facility] BMI 2023-12-29 14:08:00 29.63 kg/m2 [facility] Systolic blood pressure 2023-11-23 14:45:00 104 mm[Hg] [facility] Diastolic blood pressure 2023-11-23 14:45:00 73 mm[Hg] [facility] Heart rate 2023-11-23 14:45:00 107 /min [facility] Body temperature 2023-11-23 14:45:00 36.72 [place] [facility] Body height 2023-11-23 14:45:[address] [facility] Body weight 2023-11-23 14:45:[address] [facility] BMI 2023-11-23 14:45:00 29.46 kg/m2 [facility] Heart rate 2023-11-05 00:15:00 93 /min [facility] Oxygen saturation in Arterial blood by Pulse oximetry 2023-11-05 00:15:00 99 /min [facility] Systolic blood pressure 2023-11-04 21:30:00 108 mm[Hg] [facility] Diastolic blood pressure 2023-11-04 21:30:00 80 mm[Hg] [facility] Body temperature 2023-11-04 21:20:00 36.94 [place] [facility] Respiratory rate 2023-11-04 21:20:00 20 /min [facility] Body height 2023-11-04 21:08:[address] [facility] Body weight 2023-11-04 21:08:[address] [facility] BMI 2023-11-04 21:08:00 28.70 kg/m2 [facility] Systolic blood pressure 2021-11-07 23:00:00 106 mm[Hg] [facility] Diastolic blood pressure 2021-11-07 23:00:00 66 mm[Hg] [facility] Heart rate 2021-11-07 23:00:00 91 /min [facility] Respiratory rate 2021-11-07 23:00:00 15 /min [facility] Oxygen saturation in Arterial blood by Pulse oximetry 2021-11-07 23:00:00 97 /min [facility] Body temperature 2021-11-07 17:52:00 36.72 [place] [facility] Body weight 2021-11-07 17:52:[address] [facility] Procedures Procedure Date / Time Performed Performing Clinician Source CBC WITH DIFF 2024-02-24 13:45:00 [facility] NE[facility]AXIAL [facility] 2024-02-23 06:53:00 Dario Ortiz [facility] HIV 1/2 AG-AB WITH REFLEX 2024-02-22 22:04:00 Meseret Cherelle [facility] HEPATITIS B SURFACE ANTIGEN 2024-02-22 21:57:00 Carl [facility] HB ABO GROUPING 2024-02-22 21:57:00 Meseret [facility] RHO (D) IMMUNE GLOBULIN 2024-02-22 21:57:00 Meseret [facility] ADC OR ALEJA ONLY - RPR 2024-02-22 21:57:00 Meseret Cherelle [facility] US PELVIS > 14 WEEKS WITH TRANSVAGINAL 2024-02-22 18:41:56 [facility]UNOASSAY[facility] - COMPREHENSIVE DRUG SCREEN 2024-02-22 13:11:00 [facility] 2024-02-22 06:23:00 Meseret Cherelle [facility] URINE CULTURE 2024-02-22 06:23:00 [facility] 2024-02-22 06:21:00 Meseret Cherelle Samy [facility] LIPASE 2024-02-22 06:21:00 Meseret Cherelle [facility] COMP. METABOLIC PANEL ([id number]) 2024-02-22 06:21:00 [facility] WITH DIFF 2024-02-22 06:21:00 [facility] SECOND AND THIRD TRIMESTER ULTRASOUND 2024-01-31 20:47:00 Meseret [facility] POCT URINALYSIS W/O SPECIFIC GRAVITY 2024-01-26 00:00:00 Meseret [facility] TDAP VACCINE, >11 YRS, IM 2024-01-12 20:58:57 Meseret [facility] POCT URINALYSIS W/O SPECIFIC GRAVITY 2024-01-12 00:00:00 [facility] (IMMUNOASSAY) - COMPREHENSIVE DRUG SCREEN 2023-12-29 15:09:00 Cherelle Carl [facility] POCT URINALYSIS W/O SPECIFIC GRAVITY 2023-12-29 00:00:00 Cherelle Carl [facility] SCANNED LAB RESULTS 2023-12-13 16:34:28 Doctor Belén ricci, [facility] SCANNED LAB RESULTS 2023-12-13 15:45:57 Doctor Belén ricci, [facility] [facility] SECOND AND THIRD TRIMESTER ULTRASOUND 2023-12-02 14:38:33 Cherelle Carl [facility] SECOND AND THIRD TRIMESTER ULTRASOUND 2023-12-02 14:38:32 Cherelle Carl [facility] POCT URINALYSIS W/O SPECIFIC GRAVITY 2023-11-23 00:00:00 Cherelle Carl [facility] CBC WITHOUT DIFF 2021-11-07 22:54:00 Ricardo Fuentes [facility] US PELVIS COMPLETE WITH TRANSVAGINAL 2021-11-07 22:50:00 Ricardo Fuentes [facility] CT ABDOMEN PELVIS W CONTRAST 2021-11-07 20:57:28 Ricardo Fuentes [facility] AMMONIA, PLASMA 2021-11-07 20:38:00 [facility] 2021-11-07 20:38:00 [facility] POCT TEST 2021-11-07 20:34:00 Aleah Fuentes [facility] LIPASE 2021-11-07 19:47:00 Ricardo Fuentes [facility] COMP. METABOLIC PANEL (98839) 2021-11-07 19:47:00 Ricardo Fuentes [facility] CBC WITH DIFF 2021-11-07 19:47:00 Ricardo Fuentes [facility] PROTHROMBIN TIME / INR 2021-11-07 19:47:00 Morris Fuentes [facility] CONSENT/REFUSAL FOR DIAGNOSIS AND TREATMENT 2021-11-07 17:48:44 Doctor Unassigned, Fitzhugh [facility] NOTICE OF PRIVACY PRACTICES 2021-11-07 17:45:28 Doctor Unassigned, Fitzhugh [facility] CONSENT/REFUSAL FOR DIAGNOSIS AND TREATMENT 2021-11-07 17:41:07 Doctor Unassigned, Fitzhugh [facility] Encounters Start Date/Time End Date/Time Encounter Type Admission Type Attending [facility] Care Department Encounter ID Source 2024-02-16 19:40:40 Outpatient X [facility] ZEKE [id number] [facility] 2023-12-13 00:00:00 2024-09-16 07:48:24 Orders Only Doctor Unassigned, Fitzhugh Doctor Unassigned, Fitzhugh [facility]) 1.2.840.114 350.1.13.10 4.2.7.2.686 [id number] [facility] 2023-12-13 00:00:00 2024-09-16 07:48:13 Orders Only Doctor Unassigned, Fitzhugh Doctor Unassigned, Fitzhugh [facility] ([facility]AND[facility]) 1.2.840.114 350.1.13.10 4.2.7.2.686 [id number] [facility] 2024-02-08 00:00:00 2024-03-11 18:21:09 Patient Secure Msg Doctor Unassigned, Fitzhugh Doctor Unassigned, Fitzhugh [facility] 1.2.840.114 350.1.13.10 4.2.7.2.686 [id number] 134 [id number] [facility] 2024-02-24 00:00:00 2024-02-25 14:05:37 Telephone Cherelle Carl [facility] 1.2.840.114 350.1.13.10 4.2.7.2.686 [id number] [facility] 2024-02-21 22:52:00 2024-02-24 12:25:00 Inpatient P CHERELLE CARL VIEN [facility] [id number] [facility] 2024-02-21 22:52:00 2024-02-24 12:25:00 Hospital Encounter Cherelle Carl [facility] 1..840.114 350.1.13.10 4.2.7.2.686 [id number] [facility] 2024-02-23 14:30:00 2024-02-23 14:30:00 Outpatient R CHERELLE CARL VIEN [facility] [id number] [facility] 2024-02-23 01:52:00 2024-02-23 04:32:00 Anesthesia Event Js Ortiz [facility] 1..840.114 350.1.13.10 4.2.7.2.686 [id number] [facility] 2024-02-22 10:15:00 2024-02-22 10:15:00 Outpatient R CHERELLE CARL VIEN [facility] [id number] [facility] 2024-02-21 00:00:00 2024-02-21 13:39:24 Telephone Cherelle Carl [facility] 1.2.840.114 350.1.13.10 4.2.7.2.686 [id number] 134 [id number] [facility] 2024-01-19 00:00:00 2024-02-19 18:16:05 Patient Secure Msg Doctor Unassigned, Fitzhugh [facility] 1.2.840.114 350.1.13.10 4.2.7.2.686 [id number] 134 [id number] [facility] 2024-02-16 18:12:00 2024-02-16 19:40:00 Outpatient X BRITTANY NORWOOD VIVIAN [facility] [id number] [facility] 2024-02-16 18:12:00 2024-02-16 19:40:00 Emergency AdBrittany todd [facility] 1.2.840.114 350.1.13.10 4.2.7.2.686 [id number] [facility] 2024-02-09 13:00:00 2024-02-09 13:00:00 Outpatient R HUY BAY [facility] [id number] [facility] 2024-01-31 14:45:00 2024-01-31 16:15:35 Outpatient P MIKAYLA BEAUDEBBIE [facility] [id number] [facility] 2024-01-31 14:45:00 2024-01-31 16:15:35 Car Spotter Visit Ultrasound, Amber Degroot [facility] INSPECTOR METAL CAN [facility] 1.2.840.114 350.1.13.10 4.2.7.2.686 [id number] [facility] 2024-01-26 14:30:00 2024-01-26 15:16:39 Outpatient R KYLE CARLEN MESERET [facility] [id number] [facility] 2024-01-26 14:30:00 2024-01-26 15:16:39 Routine Visit Cherelle Carl [facility] 1.2.840.114 350.1.13.10 4.2.7.2.686 [id number] 134 [id number] [facility] 2024-01-18 09:15:00 2024-01-18 10:38:33 Outpatient R CHERELLE CARL [facility] [id number]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
[2024-12-23] MEDS ORDERED: ONDANSETRON 4 MG/2 ML VIAL ONE (14:56)
[2024-12-23] MEDS ORDERED: NA CHLORIDE 0.9% 1,000 ML ONE (14:57)
[2024-12-23] MEDS ORDERED: DIPHENHYDRAMINE 50 MG/ML VIAL ONE (14:57)
[2024-12-23 15:24] LABS: Absolute Basophils 0.1 K/uL (0-0.5); Absolute Eosinophils 0.1 K/uL (0-0.5); Absolute Lymphocytes (CBC) 1.8 K/uL (0.7-4.9); Absolute Monocytes 0.7 K/uL (0.1-1.3); Absolute Neutrophil 4.6 K/uL (1.8-8.0); Basophils % 1.2 % (0-1.3); Eosinophils % 1.7 % (0-4.4); Hematocrit 38.7 % (36.0-45.0); Lymphocytes % 24.7 % (15.3-44.8); MCH 27.6 pg (27.0-35.0); MCHC 33.5 g/dL (32.0-36.0); MCV 82.3 fL (80-100); MPV 8.8 fL (7.6-11.3); Monocytes % 9.4 % (3.3-12.3); Nucleated Red Blood Cells % 0.1 % (0-0); Platelets 282 thou/uL (152-406); Red Cell Distribution Width 17.4 % (12.1-15.2)
[2024-12-23 15:43] LABS: Albumin 3.4 g/dL (3.4-5.0); Albumin/Globulin Ratio 0.9 (1.1-1.8); Anion Gap 8.5 mEq/L (5.0-15.0); Bilirubin Total 0.6 mg/dL (0.2-1.0); Protein, Total 7.4 g/dL (6.4-8.2)
[2024-12-23 15:59] LABS: Potassium 3.5 mEq/L (3.5-5.1)
--- NOTE | 2024-12-23 16:50 | ER ---
Nurse's Notes [facility] Name: Anne Posada Age: 39 yrs Sex: Female : 1985 Arrival Date: 12/23/2024 Time: 13:45 Bed 16 Private MD: Diagnosis: Headache Presentation: 12/23 14:20 Chief complaint: Patient states: about 4 am patient woke up with a headache, neck pain me1 and n/v. PEREZ/neck pain, throbbing 03/11. Coronavirus screen: Vaccine status: Patient reports receiving the 2nd dose of the covid vaccine. Ebola Screen: No symptoms or risks identified at this time. Initial Sepsis Screen: Does the patient meet any 2 criteria? No. Patient's initial sepsis screen is negative. Does the patient have a suspected source of infection? No. Patient's initial sepsis screen is negative. Risk Assessment: Do you want to hurt yourself or someone else? Patient reports no desire to harm self or others. Onset of symptoms was December 23, 2024 at 04:00. 14:20 Method Of Arrival: Ambulatory [facility] 14:20 Acuity: FER 3 me1 Triage Assessment: 14:21 Headache History: The patient has had previous headaches and this one is similar to me1 previous episodes. 16:52 General: Appears in no apparent distress. comfortable, Behavior is calm, cooperative, ld1 appropriate for age. Pain: Also complains of no other associated symptoms. 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 - Infectious Disease History:: Denies. - Social history:: Smoking status: Patient reports the use of cigarette tobacco products, smokes one-half pack cigarettes per day. Screenin:28 [facility] ED Fall Risk Assessment (Adult) History of falling in the last 3 months, ld1 including since admission No falls in past 3 months (0 pts) Confusion or Disorientation No (0 pts) Intoxicated or Sedated No (0 pts) Impaired Gait No (0 pts) Mobility Assist Device Used No (0 pt) Altered Elimination No (0 pt) Score/Fall Risk Level 0 - 2 = Low Risk Oriented to surroundings, Hourly rounding (assess needs \T\ fall precautionary measures) done. Abuse screen: Denies threats or abuse. Denies injuries from another. Nutritional screening: No deficits noted. Tuberculosis screening: No symptoms or risk factors identified. Assessment: 15:28 General: Appears in no apparent distress. comfortable, Behavior is calm, cooperative, ld1 appropriate for age. Pain: Complains of pain in face Pain does not radiate. Pain currently is 8 out of 10 on a pain scale. Quality of pain is described as throbbing, Pain began suddenly, Is continuous. Neuro: Level of Consciousness is awake, alert, obeys commands, Oriented to person, place, time, situation. Cardiovascular: Capillary refill < 3 seconds Patient's skin is warm and dry. Respiratory: Airway is patent Respiratory effort is even, unlabored. GI: Abdomen is flat, non-distended. : No signs and/or symptoms were reported regarding the genitourinary system. EENT: No signs and/or symptoms were reported regarding the EENT system. Derm: No signs and/or symptoms reported regarding the dermatologic system. Musculoskeletal: No signs and/or symptoms reported regarding the musculoskeletal system. Vital Signs: 14:20 BP 136 / 99; Pulse 84; Resp 18; Temp 98.6; Pulse Ox 96% ; Weight 63.5 kg; Height 5 ft. me1 4 in. ; Pain 8/10; 15:28 BP 120 / 87; Pulse 92; Resp 18; Pulse Ox 100% on R/A; ld1 14:20 Body Mass Index 24.03 (63.50 kg, 162.56 cm) me1 14:20 Pain Scale: Adult me1 [place] Coma Score: 18:13 Eye Response: spontaneous(4). Motor Response: obeys commands(6). Verbal Response: dr5 oriented(5). Total: 15. ED Course: 13:47 Patient arrived in ED. im 13:48 Stanford Espino[facility] FNP-C [facility] 13:48 Loyd Salinas MD is Attending Physician. dr5 14:21 Triage completed. me1 14:21 Arm band placed on Patient placed in waiting room. me1 15:26 Mago Bryant RN is Primary Nurse. ld1 15:28 Patient has correct armband on for positive identification. Placed in gown. Bed in low ld1 position. Call light in reach. Side rails up X2. Pulse ox on. NIBP on. Door closed. Noise minimized. Warm blanket given. 15:28 No provider procedures requiring assistance completed. ld1 15:28 Inserted saline lock: 20 gauge in left antecubital area, using aseptic technique. Blood ld1 collected. Flushed with 10 mL NS. 16:52 IV discontinued, intact, bleeding controlled, No redness/swelling at site. ld1 Administered Medications: 15:26 Drug: NS 0.9% IV 1000 ml IV at 1000 ml once; to be given as a bolus over 60 minutes ld1 Route: IV; Rate: 1000 ml; Site: left antecubital; 15:27 Drug: Ondansetron IVP 4 mg IVP once; over 2 minutes Route: IVP; Site: left antecubital; ld1 15:27 Drug: diphenhydrAMINE IVP 12.5 mg IVP once Route: IVP; Site: left antecubital; ld1 Medication: 15:28 VIS not applicable for this client. ld1 Outcome: 16:49 Discharge ordered by . dr5 16:52 Discharged to home ambulatory, ld1 16:52 Condition: stable 16:52 Discharge instructions given to patient, Instructed on discharge instructions, follow up and referral plans. medication usage, Demonstrated understanding of instructions, follow-up care, medications, Prescriptions given X 1, 16:52 Patient left the ED. ld1 Signatures: Mago Bryant RN RN ld1 Abbey Buck Michelle, RN RN ct1 Stanford Espinoza, AUTOMATIC SPREADER OPERATOR-C AUTOMATIC SPREADER OPERATOR-Cdr5
--- NOTE | 2024-12-23 16:50 | EDPHYS ---
Physician Documentation [facility] Name: Anne Posada Age: 39 yrs Sex: Female : 1985 Arrival Date: 12/23/2024 Time: 13:45 Bed 16 Private MD: ED Physician Loyd Salinas HPI: 12/23 18:13 This 39 yrs old Female presents to ER via Ambulatory with complaints of dr5 Headache, Neck Pain, <24hrs Old, Vomiting. 18:13 Patient is a 39-year-old female with history of anxiety and depression coming in with dr5 headache that started at 4:00 this morning. Patient reports that her headache is similar to previous. Patient reports history of migraines and photophobia. Patient denies fever, nausea, vomiting, diarrhea. 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 - Infectious Disease History:: Denies. - Social history:: Smoking status: Patient reports the use of cigarette tobacco products, smokes one-half pack cigarettes per day. ROS: 18:13 Constitutional: as per hpi dr5 Exam: 18:13 Constitutional: This is a well developed, well nourished patient who is awake, alert, dr5 and in no acute distress. Head/Face: Normocephalic, atraumatic. Eyes: Pupils equal round and reactive to light, extra-ocular motions intact. Lids and lashes normal. Conjunctiva and sclera are non-icteric and not injected. Cornea within normal limits. Periorbital areas with no swelling, redness, or edema. Neck: Trachea midline, no thyromegaly or masses palpated, and no cervical lymphadenopathy. Supple, full range of motion without nuchal rigidity, or vertebral point tenderness. No Meningismus. Chest/axilla: Normal chest wall appearance and motion. Nontender with no deformity. No lesions are appreciated. Cardiovascular: Regular rate and rhythm with a normal S1 and S2. Normal PMI, no JVD. No pulse deficits. Respiratory: Lungs have equal breath sounds bilaterally, clear to auscultation. No rales, rhonchi or wheezes noted. No increased work of breathing, no retractions or nasal flaring. Back: No spinal tenderness. No costovertebral tenderness. Full range of motion. Skin: Warm, dry with normal turgor. Normal color with no rashes, no lesions, and no evidence of cellulitis. MS/ Extremity: Pulses equal, no cyanosis. Neurovascular intact. Full, normal range of motion. Neuro: Awake and alert, GCS 15, oriented to person, place, time, and situation. Cranial nerves II-XII grossly intact. Motor strength 5/5 in all extremities. Sensory grossly intact. Cerebellar exam normal. Normal gait. Vital Signs: 14:20 BP 136 / 99; Pulse 84; Resp 18; Temp 98.6; Pulse Ox 96% ; Weight 63.5 kg; Height 5 ft. me1 4 in. ; Pain 8/10; 15:28 BP 120 / 87; Pulse 92; Resp 18; Pulse Ox 100% on R/A; ld1 14:20 Body Mass Index 24.03 (63.50 kg, 162.56 cm) me1 14:20 Pain Scale: Adult me1 [place] Coma Score: 18:13 Eye Response: spontaneous(4). Motor Response: obeys commands(6). Verbal Response: dr5 oriented(5). Total: 15. MDM: 13:48 Medical Screening Exam initiated dr5 18:13 Differential diagnosis: migraine, sinusitis, trigeminal neuralgia. Data reviewed: vital dr5 signs, nurses notes, lab test result(s). I considered the following discharge prescriptions or medication management in the emergency department Medications were administered in the Emergency Department. See MAR. Care significantly affected by the following chronic conditions: Anxiety / Depression. Care significantly affected by the following Social Determinants of Health: Poor access to healthcare and/or lack of insurance, Poor access to transportation, Problems related to employment. Counseling: I had a detailed discussion with the patient and/or guardian regarding the historical points, exam findings, and any diagnostic results supporting the discharge/admit diagnosis, the presence of at least one elevated blood pressure reading (>120/80) during this emergency department visit, lab results, the need for outpatient follow up, for definitive care, a family practitioner, to return to the emergency department if symptoms worsen or persist or if there are any questions or concerns that arise at home. Medication response: Response to treatment: the patient's symptoms have markedly improved after treatment, the patient's condition has returned to base line. ED course: Patient reports that she is feeling much better after medication. Neurological exam was unremarkable. Will have patient follow-up primary care doctor. Recommended neurology follow-up if headaches continue. All questions answered.. 12/23 14:27 Order name: CBC with Diff; Complete Time: 15:35 dr5 12/23 14:27 Order name: CMP; Complete Time: 16:07 dr5 12/23 14:27 Order name: Test, Serum; Complete Time: 16:07 dr5 Administered Medications: 15:26 Drug: NS 0.9% IV 1000 ml IV at 1000 ml once; to be given as a bolus over 60 minutes ld1 Route: IV; Rate: 1000 ml; Site: left antecubital; 15:27 Drug: Ondansetron IVP 4 mg IVP once; over 2 minutes Route: IVP; Site: left antecubital; ld1 15:27 Drug: diphenhydrAMINE IVP 12.5 mg IVP once Route: IVP; Site: left antecubital; ld1 Disposition Summary: 12/23/24 16:49 Discharge Ordered Notes: Location: Home dr5 Condition: Stable dr5 Diagnosis - Headache dr5 Followup: dr5 - With: Emergency Department - When: As needed - Reason: Worsening of condition Followup: dr5 - With: Private Physician - When: 1 - 2 days - Reason: Recheck today's complaints, Continuance of care, Re-evaluation by your physician Discharge Instructions: - Discharge Summary Sheet dr5 - Dehydration, Adult dr5 - Migraine Headache dr5 Forms: - Medication Reconciliation Form dr5 - Patient Portal Instructions dr5 - Leadership Thank You Letter dr5 Prescriptions: - Zofran 4 mg Oral Tablet - take 1 tablet ORAL route every 12 hours As needed; 20 tablet; Refills: 0, dr5 Product Selection Permitted Addendum: 12/25/2024 12:35 Co-signature as Attending Physician, Loyd Salinas MD I agree with the assessment and c love plan of care. Signatures: Dispatcher [employer] Loyd Lucio MD MD cha Sims, Lauren, RN RN ld1 Martha Nava RN RN me1 Stanford Espinoza, CIVIL ENGINEERING DESIGN DRAFTSPERSON-C CIVIL ENGINEERING DESIGN DRAFTSPERSON-[facility] [place]5
[2024-12-23 16:58] VITALS: TEMP 98.6
[2024-12-23 17:00] VITALS: BP 120/87; O2SAT 100
== END 2024-12-23 16:52 | disposition home or self-care (01) ==
LOC: ER 13:45
DX: R51.9 Headache, unspecified (principal); M54.2 Cervicalgia; F17.210 Nicotine dependence, cigarettes, uncomplicated
CPT/HCPCS: 85025; 36415; 84703; 80053; 96375; 96374; 99284; J1200; J2405; J7030